=== PATIENT | female | born 1995 | race Caucasian/White ===

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

== ENCOUNTER 2018-12-08 18:31 | Emergency (ER) | payer MEDICAID | END 2018-12-08 23:37 | disposition home or self-care (01) | LOC: ER 23:37 ==

== ENCOUNTER → 2019-02-02 | Outpatient (CLI) | payer MEDICAID ==
[~2019-02-02] MED LIST: CATHETER FLUSH 10 ML SYR IV PRN; HOLD METFORMIN - RECEIVED CONTRAST 20 ML VIAL IV SCH; HYOS0.1283 SL; IOHEXOL 350 MG/ML 100 ML (OMNIPAQUE 350) VIAL IV ONE; NAPR-915; NS 100 ML (IVPB) BAG IV ONE; ONDA4TAB11 PO; ONDA8TAB13 PO; PRD20T
--- NOTE | 2019-02-02 10:29 | Diagnostic Imaging Report ---
PROCEDURE: CT abdomen and pelvis with contrast. TECHNIQUE: Multiple contiguous axial images were obtained through the abdomen and pelvis after administration of intravenous contrast. Auto Exposure Controls were utilized during the CT exam to meet ALARA standards for radiation dose reduction. INDICATION: Diarrhea and abdominal pain for one month. COMPARISON: Correlation is made with prior CT from 12/08/2018. FINDINGS: The lung bases are clear. There are postsurgical changes of gastric bypass surgery. Liver is unremarkable. Gallbladder is surgically absent. No biliary duct dilatation is seen. The pancreas and spleen are unremarkable. No adrenal mass is detected. Kidneys are without evidence of hydronephrosis. Aorta is non-aneurysmal. The small and large bowel loops are normal in caliber. There is no obstruction. No free fluid or fluid collection is seen. The uterus contains an IUD. Partially filled urinary bladder is unremarkable. Occasional mildly prominent lymph nodes in the right lower quadrant are noted which can be seen with mesenteric adenitis. No definite bowel wall thickening is seen. Ovaries are unremarkable. IMPRESSION: Overall essentially unremarkable CT of the abdomen and pelvis with the exception of mildly prominent lymph nodes in the right lower quadrant which can be seen with mesenteric adenitis. No other significant abnormality is detected. Dictated by: Dictated on workstation # [id number]
== END ==
LOC: RAD 09:30
PROVIDERS: ATTEND Physician Assistant
DX: R19.7 Diarrhea, unspecified (principal); R25.2 Cramp and spasm; R10.9 Unspecified abdominal pain
CPT/HCPCS: 74177

== ENCOUNTER 2019-03-06 08:10 | Emergency (ER) | payer MEDICAID ==
[~2019-03-06] VITALS: Ht 162.5 cm; Wt 112.8 kg
[~2019-03-06 08:10] MED LIST changes: -CATHETER FLUSH 10 ML SYR IV PRN; -HOLD METFORMIN - RECEIVED CONTRAST 20 ML VIAL IV SCH; -IOHEXOL 350 MG/ML 100 ML (OMNIPAQUE 350) VIAL IV ONE; -NAPR-915; -NS 100 ML (IVPB) BAG IV ONE; -ONDA4TAB11 PO; -PRD20T
[2019-03-06] MEDS ORDERED: PRD20T (09:14)
[2019-03-06] MEDS ORDERED: NAPR-915 (09:14)
[2019-03-06] MEDS ORDERED: NS IV 1000 ML 1,000 ML IV ONE (10:14)
[2019-03-06] MEDS ORDERED: PROMETHAZINE INJ 25 MG/ML (PHENERGAN) AMP IVP ONE (10:15)
[2019-03-06] MEDS ORDERED: KETOROLAC 30 MG/ML VIAL IVP ONE (10:15)
[2019-03-06 11:19] LABS: BASOPHILS % (AUTO) 0 % (0-10); EOSINOPHILS % (AUTO) 0 % (0-10); HEMATOCRIT 39 % (35-52); HEMOGLOBIN 12.7 G/DL (11.5-16.0); LYMPHOCYTES # (AUTO) 0.8 X 10^3 (1.0-4.0); LYMPHOCYTES % (AUTO) 16 % (12-44); MEAN CORPUSCULAR HEMOGLOBIN 28 PG (25-34); MEAN CORPUSCULAR HGB CONC 32 G/DL (32-36); MEAN CORPUSCULAR VOLUME 85 FL (80-99); MEAN PLATELET VOLUME 12.1 FL (7.4-10.4); MONOCYTES # (AUTO) 0.2 X 10^3 (0.0-1.0); MONOCYTES % (AUTO) 3 % (0-12); NEUTROPHILS # (AUTO) 4.2 X 10^3 (1.8-7.8); NEUTROPHILS % (AUTO) 81 % (42-75); PLATELET COUNT 209 10^3/uL (130-400); RED CELL DISTRIBUTION WIDTH 13.9 % (10.0-14.5); WHITE BLOOD COUNT 5.1 10^3/uL (4.3-11.0)
[2019-03-06 11:36] LABS: ALANINE AMINOTRANSFERASE 11 U/L (0-55); ALBUMIN 4.2 GM/DL (3.2-4.5); ALKALINE PHOSPHATASE 71 U/L (40-136); BILIRUBIN,TOTAL 0.5 MG/DL (0.1-1.0); BUN/CREATININE RATIO 11; CALCIUM 9.4 MG/DL (8.5-10.1); CARBON DIOXIDE 24 MMOL/L (21-32); CHLORIDE 108 MMOL/L (98-107); CREATININE SERUM 0.64 MG/DL (0.60-1.30); GFR ESTIMATED > 60; GLUCOSE 91 MG/DL (70-105); POTASSIUM 4.2 MMOL/L (3.6-5.0); SODIUM 140 MMOL/L (135-145); TOTAL PROTEIN 7.2 GM/DL (6.4-8.2)
[2019-03-06 11:49] LABS: ERYTHROCYTE SEDIMENTATION RATE 7 MM/HR (0-20)
[2019-03-06] MEDS ORDERED: ONDA4TAB11 PO (11:51)
--- NOTE | 2019-03-06 11:52 | ED Headache ---
General Chief Complaint: Head/Cervical Problems Stated Complaint: HEADACHE Nursing Triage Note: AMB TO ROOM WITH FEMALE PATIENT REPORTS WAS IN CLASS YESTERDAY AROUND 11OOA WHEN HER L EYE STARTED TWITCHING AND ONSET OF HEADACHE WENT TO URGENT CARE TOLD HER TO TAKE ALEVE AND WAS GIVEN RX FOR PREDISONE. DID NOT TAKE TYLENOL WITH WAS TOLD AT URGENT CARE NOT TO. TOOK ONE DOSE OF ALEVE AND PREDISON IS NOT ANY BETTER Nursing Sepsis Screen: No Definite Risk Source: patient Exam Limitations: no limitations History of Present Illness Date Seen by Provider: Mar 06, 2019 Time Seen by Provider: 10:05 Initial Comments This 23-year-old young lady presents to the emergency room with complaints of twitching in the right eye and headache that started yesterday when she was in class. She presented to urgent care and was advised to take Aleve and was prescribed prednisone. These medications did not adequately improve her pain. She denies history of severe headaches or migraines. She reports having some associated nausea and dizziness. She has no focal neurologic deficits she did report some subtle blurriness. Allergies and Home Medications Allergies Coded Allergies: Penicillins (Verified Allergy, Unknown, 12/08/18) pt states she is not sure if she has ever had a reaction, but states her mom is allergic to penicillin so she was told to list it as an allergy Home Medications Hyoscyamine Sulfate 0.125 Mg Tab.subl, 0.125 MG SL Q4H PRN for SPASMS Prescribed by: NIKHIL LANGLEY on 12/08/182256 Ondansetron 8 Mg Tab.rapdis, 8 MG PO Q6H PRN for NAUSEA/VOMITING Prescribed by: NIHKIL LANGLEY on 12/08/182256 Ondansetron 4 Mg Tab.rapdis, 4 MG PO Q4H PRN for NAUSEA/VOMITING Prescribed by: JOSE PERLA on 03/06/19 1151 Patient Home Medication List Home Medication List Reviewed: Yes Review of Systems Review of Systems Constitutional: no symptoms reported Eyes: No Symptoms Reported Ears, Nose, Mouth, Throat: no symptoms reported Respiratory: no symptoms reported Cardiovascular: no symptoms reported Gastrointestinal: see HPI Genitourinary: no symptoms reported : No Musculoskeletal: no symptoms reported Skin: no symptoms reported Psychiatric/Neurological: See HPI Past Nevtyvs-Spyzzt-Wkvrjz Hx Past Med/Social Hx: Reviewed Nursing Past Med/Soc Hx Patient Social History Alcohol Use: Denies Use Recreational Drug Use: No Smoking Status: Never a Smoker 2nd Hand Smoke Exposure: No Recent Foreign Travel: No Contact w/Someone Who Travel: No Recent Infectious Disease Expo: No Past Medical History Surgeries: Yes (gastric sleeve) Section, Gallbladder Respiratory: No Cardiac: No Neurological: No Reproductive Disorders: No 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 oz. 111.696474go; 42.00 BMI Method:Stated General Appearance: WD/WN, moderate distress HEENT: PERRL/EOMI, normal ENT inspection, TMs normal, pharynx normal Neck: normal inspection Cardiovascular: regular rate, rhythm, no edema, no murmur Respiratory: lungs clear, normal breath sounds, no respiratory distress, no accessory muscle use Gastrointestinal: normal bowel sounds, non tender, soft Extremities: normal inspection, no pedal edema Psychiatric: alert, oriented x 3 Crainal Nerves: normal hearing, normal speech, PERRL Coordination/Gait: normal gait Motor/Sensory: no motor deficit, no sensory deficit Skin: normal color, warm/dry Progress/Results/Core Measures Results/Orders Lab Results Laboratory Tests Test 03/06/19 10:40 Range/Units White Blood Count 5.1 4.3-11.0 10^3/uL Red Blood Count 4.60 4.35-5.85 10^6/uL Hemoglobin 12.7 11.5-16.0 G/DL Hematocrit 39 35-52 % Mean Corpuscular Volume 85 80-99 FL Mean Corpuscular Hemoglobin 28 25-34 PG Mean Corpuscular Hemoglobin Concent 32 32-36 G/DL Red Cell Distribution Width 13.9 10.0-14.5 % Platelet Count 209 130-400 10^3/uL Mean Platelet Volume 12.1 H 7.4-10.4 FL Neutrophils (%) (Auto) 81 H 42-75 % Lymphocytes (%) (Auto) 16 12-44 % Monocytes (%) (Auto) 3 0-12 % Eosinophils (%) (Auto) 0 0-10 % Basophils (%) (Auto) 0 0-10 % Neutrophils # (Auto) 4.2 1.8-7.8 X 10^3 Lymphocytes # (Auto) 0.8 L 1.0-4.0 X 10^3 Monocytes # (Auto) 0.2 0.0-1.0 X 10^3 Eosinophils # (Auto) 0.0 0.0-0.3 10^3/uL Basophils # (Auto) 0.0 0.0-0.1 10^3/uL Erythrocyte Sedimentation Rate 7 0-20 MM/HR Sodium Level 140 135-145 MMOL/L Potassium Level 4.2 3.6-5.0 MMOL/L Chloride Level 108 H 98-107 MMOL/L Carbon Dioxide Level 24 21-32 MMOL/L Anion Gap 8 5-14 MMOL/L Blood Urea Nitrogen 7 7-18 MG/DL Creatinine 0.64 0.60-1.30 MG/DL Estimat Glomerular Filtration Rate > 60 BUN/Creatinine Ratio 11 Glucose Level 91 70-105 MG/DL Calcium Level 9.4 8.5-10.1 MG/DL Corrected Calcium 9.2 8.5-10.1 MG/DL Total Bilirubin 0.5 0.1-1.0 MG/DL Aspartate Amino Transf (AST/SGOT) 14 5-34 U/L Alanine Aminotransferase (ALT/SGPT) 11 0-55 U/L Alkaline Phosphatase 71 40-136 U/L Total Protein 7.2 6.4-8.2 GM/DL Albumin 4.2 3.2-4.5 GM/DL Serum Test, Qualitative NEGATIVE NEGATIVE My Orders Orders - JOSE CHRISTIAN MD Cbc With Automated Diff (03/06/19 10:14) Comprehensive Metabolic Panel (03/06/19 10:14) Hcg,Qualitative Serum (03/06/19 10:14) Erythrocyte Sedimentation Rate (03/06/19 10:14) Ed Iv/Invasive Line Start (03/06/19 10:14) Ns Iv 1000 Ml (Sodium Chloride 0.9%) (03/06/19 10:14) Ketorolac Injection (Toradol Injection) (03/06/19 10:15) Promethazine Injection (Phenergan Injec (03/06/19 10:15) Medications Given in ED Vital Signs/I&O 03/06/19 03/06/19 08:30 12:14 Temp 36.6 Pulse 85 78 Resp 18 18 B/P (MAP) 154/84 (107) 132/66 Pulse Ox 97 98 O2 Delivery Room Air Blood Pressure Mean: 107 POS Progress Progress Note : Progress Note Patient was treated with Toradol, Phenergan, and IV fluids with good improvement. Departure Impression Primary Impression: Migraine headache with aura Qualified Codes: G43.109 - Migraine with aura, not intractable, without status migrainosus Disposition: 01 HOME, SELF-CARE Condition: Improved Departure-Patient Inst. Referrals: [facility][1]/[facility] (PCP) Primary Care Physician LANA JASMINE (Family) Primary Care Physician Patient Instructions: Migraine Headache (DC) Add. Discharge Instructions: Return home and rest in a quiet, calm, dark environment for the remainder of the day. Stay well-hydrated. For rebound headaches you may take either naproxen 500 mg (Aleve) twice a daily or ibuprofen up to 600 mg every 6 hours as needed. You may add Tylenol (acetaminophen) up to 1000 mg every 6 hours as needed for additional pain relief. Use Zofran (ondansetron) as prescribed for nausea or vomiting. Return to care if you have rebound headaches that do not respond to these treatments. Follow-up with your primary care provider as soon as possible. All discharge instructions reviewed with patient and/or family. Voiced understanding. Scripts Ondansetron (Ondansetron Odt) 4 Mg Tab.rapdis 4 MG PO Q4H PRN for NAUSEA/VOMITING, #10 TAB Prov: JOSE CHRISTIAN MD 03/06/19 Copy Copies To 1: VALENTIN TSE JOSHUA T MD Mar 06, 2019 11:52 POS
[2019-03-06 12:14] VITALS: BP 132/66
== END 2019-03-06 12:13 | disposition home or self-care (01) ==
LOC: EDUNIT# 08:10 → ER 08:11
DX: G43.109 Migraine with aura, not intractable, without status migrainosus (principal); Z88.0 Allergy status to penicillin
CPT/HCPCS: 36415; 80053; 84703; 85025; 85652; 96361; 96374; 96375

== ENCOUNTER 2019-05-07 11:57 | Emergency (ER) | payer MEDICAID ==
[~2019-05-07] VITALS: Ht 162.5 cm; Wt 112.7 kg
[~2019-05-07 11:57] MED LIST changes: +NAPR-915; +ONDA4TAB11 PO; +PRD20T
[2019-05-07 12:27] LABS: BILIRUBIN,URINE NEGATIVE (NEGATIVE); CLARITY,URINE CLEAR; COLOR,URINE YELLOW; GLUCOSE, URINE (UA) NEGATIVE (NEGATIVE); KETONES,URINE NEGATIVE (NEGATIVE); LEUKOCYTE ESTERASE ,URINE TRACE (NEGATIVE); NITRITE,URINE NEGATIVE (NEGATIVE); PROTEIN,URINE NEGATIVE (NEGATIVE)
[2019-05-07 12:34] LABS: BACTERIA,URINE TRACE /HPF; WBC,URINE RARE /HPF
[2019-05-07] MEDS ORDERED: NS IV 1000 ML 1,000 ML IV SCH (14:41)
[2019-05-07] MEDS ORDERED: ONDANSETRON 4 MG/2 ML (SDV) Z0FRAN IVP ONE ×2 (14:45→18:15)
[2019-05-07 14:47] LABS: BASOPHILS % (AUTO) 0 % (0-10); EOSINOPHILS # (AUTO) 0.1 10^3/uL (0.0-0.3); EOSINOPHILS % (AUTO) 1 % (0-10); HEMATOCRIT 37 % (35-52); HEMOGLOBIN 12.1 G/DL (11.5-16.0); LYMPHOCYTES # (AUTO) 1.3 X 10^3 (1.0-4.0); LYMPHOCYTES % (AUTO) 15 % (12-44); MEAN CORPUSCULAR HEMOGLOBIN 28 PG (25-34); MEAN CORPUSCULAR HGB CONC 33 G/DL (32-36); MEAN CORPUSCULAR VOLUME 85 FL (80-99); MEAN PLATELET VOLUME 12.1 FL (7.4-10.4); MONOCYTES # (AUTO) 0.6 X 10^3 (0.0-1.0); MONOCYTES % (AUTO) 7 % (0-12); NEUTROPHILS # (AUTO) 6.6 X 10^3 (1.8-7.8); NEUTROPHILS % (AUTO) 77 % (42-75); PLATELET COUNT 208 10^3/uL (130-400); RED CELL DISTRIBUTION WIDTH 14.3 % (10.0-14.5); WHITE BLOOD COUNT 8.7 10^3/uL (4.3-11.0)
[2019-05-07 15:09] LABS: ALANINE AMINOTRANSFERASE 10 U/L (0-55); ALKALINE PHOSPHATASE 59 U/L (40-136); BILIRUBIN,TOTAL 0.6 MG/DL (0.1-1.0); BUN/CREATININE RATIO 10; CALCIUM 8.7 MG/DL (8.5-10.1); CARBON DIOXIDE 23 MMOL/L (21-32); CHLORIDE 110 MMOL/L (98-107); CREATININE SERUM 0.67 MG/DL (0.60-1.30); GFR ESTIMATED > 60; GLUCOSE 82 MG/DL (70-105); SODIUM 139 MMOL/L (135-145); TOTAL PROTEIN 6.7 GM/DL (6.4-8.2)
[2019-05-07] MEDS ORDERED: KETOROLAC 30 MG/ML VIAL IVP ONE (15:45)
--- NOTE | 2019-05-07 16:45 | Diagnostic Imaging Report ---
PROCEDURE: US NONOB transvaginal. TECHNIQUE: Multiple real-time grayscale images were obtained of the pelvis in various projections endovaginally. INDICATION: Pelvic pain. FINDINGS: Uterus measures 9.2 x 5 x 5.7 cm. Endometrial stripe measures 6 mm. IUD is present in the uterine cavity in good position. The right ovary is not visualized. There is considerable bowel gas in the right adnexa. The left ovary appears normal measuring 4.5 x 2.2 x 2.7 cm. There is normal blood flow to the left ovary. There is a small amount of free fluid noted in the cul-de-sac. IMPRESSION: 1. Trace of free fluid in the cul-de-sac. Right ovary not identified. No abnormalities demonstrated. 2. IUD in good position. Dictated by: Dictated on workstation # [id number]
[2019-05-07] MEDS ORDERED: fentaNYL INJECTION 100 MCG/2 ML AMP IVP ONE (18:15)
[2019-05-07] MEDS ORDERED: NS 100 ML (IVPB) BAG IV ONE (18:30)
[2019-05-07] MEDS ORDERED: IOHEXOL 350 MG/ML 100 ML (OMNIPAQUE 350) VIAL IV ONE (18:30)
[2019-05-07] MEDS ORDERED: HOLD METFORMIN - RECEIVED CONTRAST 20 ML VIAL IV SCH (18:30)
[2019-05-07] MEDS ORDERED: CATHETER FLUSH 10 ML SYR IV PRN (18:30)
--- NOTE | 2019-05-07 18:32 | ED Abdominal Pain ---
General Chief Complaint: - Urinary Stated Complaint: LOWER ABD PAIN;DIZZINESS;NAUSEA Nursing Triage Note: PT AMB TO TRIAGE WITH COMPLAINT OF RIGHT SIDE PAIN THAT RADIATES TO RIGHT BACK. STATES HER BACK HURTS WHENEVER SHE PEES. STATES SYMPTOMS HAVE BEEN GOING ON FOR A WEEK. STATES TODAY SHE STARTED HAVING DIZZINESS, CHILLS, AND NAUSEA. Sepsis Screen: No Definite Risk Source of Information: Patient Exam Limitations: No Limitations (JOSE CHRISTIAN MD) History of Present Illness Date Seen by Provider: May 07, 2019 Time Seen by Provider: 12:11 Initial Comments This 23-year-old young lady presents to the emergency room as directed from the [facility]. She presented there today with complaints of right lower quadrant pain for the past 2 weeks. She has had associated nausea without vomiting. She denies constipation or diarrhea. She complains of pelvic pain with urination but no superficial dysuria. She denies any history of ovarian cysts. Her last menstrual period was about one month ago. She has an IUD in [facility]. Pain seems to be fairly intermittent. She denies any pain with walking. She has had some vaginal discharge. She had a runny bowel movement this morning which is typical of her bowel movements. She has a small bump on her abdominal wall that looks like an ingrown hair. She has had prior cholecystectomy, section, and gastric sleeve. At [facility] she was seen by Linnette Herrera who performed a pelvic exam. Screening for Trichomonas and bacterial vaginosis was negative. She did have cervical motion tenderness but no inflammatory changes or purulent discharge visible on exam. No medications were administered. She was referred to the emergency room for further workup. (JOSE CHRISTIAN MD) Allergies and Home Medications Allergies Coded Allergies: Penicillins (Verified Allergy, Unknown, 12/08/18) pt states she is not sure if she has ever had a reaction, but states her mom is allergic to penicillin so she was told to list it as an allergy Home Medications Hyoscyamine Sulfate 0.125 Mg Tab.subl, 0.125 MG SL Q4H PRN for SPASMS Prescribed by: NIKHIL LANGLEY on 12/08/182256 Ondansetron 8 Mg Tab.rapdis, 8 MG PO Q6H PRN for NAUSEA/VOMITING Prescribed by: NIKHIL LANGLEY on 12/08/182256 Ondansetron 4 Mg Tab.rapdis, 4 MG PO Q4H PRN for NAUSEA/VOMITING Prescribed by: JOSE PERLA on 03/06/19 1151 Patient Home Medication List Home Medication List Reviewed: Yes (JOSE CHRISTIAN MD) Review of Systems Review of Systems Constitutional: no symptoms reported EENTM: No Symptoms Reported Respiratory: No Symptoms Reported Cardiovascular: No Symptoms Reported Gastrointestinal: See HPI Genitourinary: See HPI Musculoskeletal: no symptoms reported Skin: no symptoms reported Psychiatric/Neurological: No Symptoms Reported Endocrine: No Symptoms Reported Hematologic/Lymphatic: No Symptoms Reported (JOSE CHRISTIAN MD) Past Vuhemai-Vpkqiq-Oqzpvz Hx Past Med/Social Hx: Reviewed Nursing Past Med/Soc Hx (JOSE CHRISTIAN MD) Patient Social History Alcohol Use: Denies Use Recreational Drug Use: No Smoking Status: Never a Smoker 2nd Hand Smoke Exposure: No Recent Foreign Travel: No Contact w/Someone Who Travel: No Recent Infectious Disease Expo: No (JOSE CHRISTIAN MD) Immunizations Up To Date Tetanus Booster (TDap): Unknown PED Vaccines UTD: Yes (JOSE CHRISTIAN MD) Past Medical History Surgeries: Yes (gastric sleeve) Section, Gallbladder Respiratory: No Cardiac: No Neurological: No : No Reproductive Disorders: No 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 oz. 111.424959dh; 42.00 BMI Method:Stated General Appearance: WD/WN, no apparent distress HEENT: PERRL/EOMI, normal ENT inspection Neck: normal inspection Respiratory: lungs clear, normal breath sounds, no respiratory distress, no a ccessory muscle use Cardiovascular: regular rate, rhythm, no edema, no murmur Gastrointestinal: normal bowel sounds, soft, tenderness (generalized over the pelvis) Extremities: normal inspection, no pedal edema Neurologic/Psychiatric: e mail system administrator II-XII nml as tested, no motor/sensory deficits, alert, normal mood/affect, oriented x 3 Skin: normal color, warm/dry (JOSE CHRISTIAN MD) Progress/Results/Core Measures Results/Orders Lab Results Laboratory Tests Test 05/07/19 12:17 05/07/19 14:33 Range/Units Urine Color YELLOW Urine Clarity CLEAR Urine pH 7.0 5-9 Urine Specific [place] <=1.005 1.016-1.022 Urine Protein NEGATIVE NEGATIVE Urine Glucose (UA) NEGATIVE NEGATIVE Urine Ketones NEGATIVE NEGATIVE Urine Nitrite NEGATIVE NEGATIVE Urine Bilirubin NEGATIVE NEGATIVE Urine Urobilinogen 0.2 < = 1.0 MG/DL Urine Leukocyte Esterase TRACE NEGATIVE Urine RBC (Auto) NEGATIVE NEGATIVE Urine RBC NONE /HPF Urine WBC RARE /HPF Urine Squamous Epithelial Cells 5-10 /HPF Urine Crystals NONE /LPF Urine Bacteria TRACE /HPF Urine Casts NONE /LPF Urine Mucus NEGATIVE /LPF Urine Culture Indicated NO White Blood Count 8.7 4.3-11.0 10^3/uL Red Blood Count 4.37 4.35-5.85 10^6/uL Hemoglobin 12.1 11.5-16.0 G/DL Hematocrit 37 35-52 % Mean Corpuscular Volume 85 80-99 FL Mean Corpuscular Hemoglobin 28 25-34 PG Mean Corpuscular Hemoglobin Concent 33 32-36 G/DL Red Cell Distribution Width 14.3 10.0-14.5 % Platelet Count 208 130-400 10^3/uL Mean Platelet Volume 12.1 H 7.4-10.4 FL Neutrophils (%) (Auto) 77 H 42-75 % Lymphocytes (%) (Auto) 15 12-44 % Monocytes (%) (Auto) 7 0-12 % Eosinophils (%) (Auto) 1 0-10 % Basophils (%) (Auto) 0 0-10 % Neutrophils # (Auto) 6.6 1.8-7.8 X 10^3 Lymphocytes # (Auto) 1.3 1.0-4.0 X 10^3 Monocytes # (Auto) 0.6 0.0-1.0 X 10^3 Eosinophils # (Auto) 0.1 0.0-0.3 10^3/uL Basophils # (Auto) 0.0 0.0-0.1 10^3/uL Sodium Level 139 135-145 MMOL/L Potassium Level 4.0 3.6-5.0 MMOL/L Chloride Level 110 H 98-107 MMOL/L Carbon Dioxide Level 23 21-32 MMOL/L Anion Gap 6 5-14 MMOL/L Blood Urea Nitrogen 7 7-18 MG/DL Creatinine 0.67 0.60-1.30 MG/DL Estimat Glomerular Filtration Rate > 60 BUN/Creatinine Ratio 10 Glucose Level 82 70-105 MG/DL Calcium Level 8.7 8.5-10.1 MG/DL Corrected Calcium 8.7 8.5-10.1 MG/DL Total Bilirubin 0.6 0.1-1.0 MG/DL Aspartate Amino Transf (AST/SGOT) 13 5-34 U/L Alanine Aminotransferase (ALT/SGPT) 10 0-55 U/L Alkaline Phosphatase 59 40-136 U/L C-Reactive Protein High Sensitivity 0.03 0.00-0.50 MG/DL Total Protein 6.7 6.4-8.2 GM/DL Albumin 4.0 3.2-4.5 GM/DL Serum Test, Qualitative NEGATIVE NEGATIVE (EMEKA DINH) Medications Given in ED Current Medications Medications Dose Ordered Sig/Catrachita Route Start Time Stop Time Status Last Admin Dose Admin Fentanyl Citrate 50 mcg ONCE ONCE IVP 05/07/19 18:15 05/07/19 18:16 DC 05/07/19 18:22 50 MCG Iohexol 100 ml ONCE ONCE IV 05/07/19 18:30 05/07/19 18:31 DC 05/07/19 18:33 99 ML Ketorolac Tromethamine 15 mg ONCE ONCE IVP 05/07/19 15:45 05/07/19 15:46 DC 05/07/19 15:40 15 MG Ondansetron HCl 4 mg ONCE ONCE IVP 05/07/19 14:45 05/07/19 14:46 DC 05/07/19 14:57 4 MG Ondansetron HCl 4 mg ONCE ONCE IVP 1/20/20 18:15 05/07/19 18:16 DC 05/07/19 18:22 4 MG Sodium Chloride 10 ml NEEDED PRN IV 05/07/19 18:30 05/07/19 18:33 10 ML Sodium Chloride 100 ml ONCE ONCE IV 05/07/19 18:30 05/07/19 18:31 DC 05/07/19 18:33 80 ML (EMEKA DINH) Vital Signs/I&O 05/07/19 12:14 Temp 36.9 Pulse 89 Resp 20 B/P (MAP) 98/65 (76) Pulse Ox 99 O2 Delivery Room Air (EMEKA DINH) Blood Pressure Mean: 76 Progress Progress Note : Time: 18:31 Progress Note Lab workup has been unremarkable. Patient was treated with Toradol and Zofran. Pelvic ultrasound was performed and revealed a small amount of free fluid but no other abnormalities. Patient states pain is still 8 out of 10 after being treated. She is still nauseated. Fentanyl and additional Zofran is being given. I discussed options for further workup which might include CT scan. After discussion of risks and benefits, patient requests to proceed with CT scan. CT was ordered and care of this patient is being transitioned to Dr. Dinh. (JOSE CHRISTIAN MD) Progress Note : Time: 18:53 Progress Note Assume care of the patient at 6:30. I agree with the above documented history and physical exam. CT imaging would support ovarian cyst. This is consistent with the rest the lab work which is also benign. Her pain has significantly improved on repeat evaluation. We will trial rotating NSAIDs and acetaminophen. She says she does have nausea occasionally so we'll send her a prescription to [facility] for Zofran. (EMEKA DINH) Diagnostic Imaging Diagonstic Imaging: Ultrasound Plain Films/CT/US/NM/MRI: pelvis Comments Pelvic ultrasound discussed with the lawn care technician and report reviewed. See report below: NAME: TRAVON CLAIRE [facility] REC#: [id number] PT STATUS: REG ER : 1995 PHYSICIAN: JOSE CHRISTIAN MD ADMIT DATE: 05/07/19/ER Signed Date of Exam:05/07/19 US NON OB TRANSVAGINAL [id number] PROCEDURE: US NONOB transvaginal. TECHNIQUE: Multiple real-time grayscale images were obtained of the pelvis in various projections endovaginally. INDICATION: Pelvic pain. FINDINGS: Uterus measures 9.2 x 5 x 5.7 cm. Endometrial stripe measures 6 mm. IUD is present in the uterine cavity in good position. The right ovary is not visualized. There is considerable bowel gas in the right adnexa. The left ovary appears normal measuring 4.5 x 2.2 x 2.7 cm. There is normal blood flow to the left ovary. There is a small amount of free fluid noted in the cul-de-sac. IMPRESSION: 1. Trace of free fluid in the cul-de-sac. Right ovary not identified. No abnormalities demonstrated. 2. IUD in good position. Dictated by: Dictated on workstation # [id number] Dict: 05/07/19 1641 Trans: 05/07/19 1810 [facility] [id number] Interpreted by: MARISA YANG MD Electronically signed by: MARISA YANG MD 05/07/191809 (JOSE CHRISTIAN MD) Departure Impression Primary Impression: Lizzeth Disposition: HOME, SELF-CARE Condition: Stable Departure-Patient Inst. Decision time for Depature: 18:59 (EMEKA DINH) Referrals: [facility] [place] (PCP) Primary Care Physician LANA JASMINE (Family) Primary Care Physician Patient Instructions: Painful Ovulation (DC) Add. Discharge Instructions: Drink plenty of fluids. Use heating pads across the abdomen for help with the pain. Tylenol 1000 mg every 8 hours as needed for pain. Alternate this with ibuprofen 800 mg every 8 hours as needed for pain. If the ibuprofen is not lasting long enough then you may use naproxen 2 tablets twice a day instead. Zofran 1 tablet under the tongue every 6 hours as needed for nausea or vomiting. Expect improvement in about 3-4 days. Follow-up with your primary care doctor for management of your symptoms as necessary. All discharge instructions reviewed with patient and/or family. Voiced understa nding. Scripts Ondansetron (Ondansetron Odt) 4 Mg Tab.rapdis 4 MG PO Q6H PRN for NAUSEA/VOMITING, #8 TAB 0 Refills Prov: EMEKA DINH 05/07/19 JOSE CHRISTIAN MD May 07, 2019 18:32 EMEKA DINH May 07, 2019 18:59
--- NOTE | 2019-05-07 18:46 | Diagnostic Imaging Report ---
CT ABDOMEN/PELVIS W TECHNIQUE: Multiple contiguous axial images were obtained through the abdomen and pelvis after administration of intravenous contrast. All CT scans use one or more of the following dose optimizing techniques: Automated exposure control, MA and/or KvP adjustment based on a patient size and exam type, or iterative reconstruction. INDICATION: Right lower quadrant pain and back pain for one week. Painful urination. COMPARISON: 02/02/2019. FINDINGS: Lower chest: The lung bases are clear. No pericardial or pleural effusion. Peritoneum: No free intraperitoneal air or fluid. Liver and biliary system: The liver is normal. Cholecystectomy. No pathologic biliary duct dilatation. Spleen and Pancreas: Spleen is normal. The pancreas enhances normally without mass lesion or peripancreatic inflammatory changes. Adrenals: Normal. tract: The kidneys enhance normally without suspicious mass or obstruction. Urinary bladder is distended without wall thickening. No urinary tract calculi. An IUD is appropriately positioned within the uterus. Physiologic left ovarian corpus luteum measuring 1.9 x 1.5 cm. GI tract: Status post gastric sleeve procedure. The stomach is decompressed. No bowel obstruction. No pericolonic inflammatory changes. Appendix is not seen with certainty, although there are no features that would suggest acute appendicitis. Vasculature and Lymph nodes: Normal caliber aorta. No abdominal or pelvic lymphadenopathy. Musculoskeletal: No concerning osseous lesion. IMPRESSION: 1. No acute obstructive or inflammatory process in the abdomen and pelvis. 2. No urinary tract calculi. Dictated by: Dictated on workstation # [id number]
[2019-05-07] MEDS ORDERED: ONDA4TAB11 PO (19:01)
[2019-05-07 19:08] VITALS: BP 137/75
== END 2019-05-07 19:09 | disposition home or self-care (01) ==
LOC: EDUNIT# 11:57 → ER 11:58
DX: N94.0 Mittelschmerz (principal); Z90.49 Acquired absence of other specified parts of digestive tract; Z88.0 Allergy status to penicillin
CPT/HCPCS: 36415; 74177; 76830; 80053; 81000; 84703; 85025; 86141; 96361; 96374; 96375; 96376

== ENCOUNTER 2019-07-02 21:42 | Emergency (ER) | payer MEDICAID ==
[~2019-07-02] VITALS: Ht 162 cm; Wt 112.7 kg
[2019-07-02] MEDS ORDERED: LIDOCAINE 2% VISCOUS 15 ML UDC ONE (21:50)
[2019-07-02] MEDS ORDERED: ANTACID SUSP 30 ML UDC (MYLANTA) ONE (21:50)
[2019-07-02] MEDS ORDERED: ALPR0.25 PO (22:00)
[2019-07-02] MEDS ORDERED: ALPRAZolam 0.25 MG (XANAX) TAB PO ONE (22:00)
[2019-07-02] MEDS ORDERED: LIDOCAINE 2% VISCOUS 15 ML UDC PO ONE (22:00)
--- NOTE | 2019-07-02 22:00 | ED EENT ---
History of Present Illness General Chief Complaint: Oral/Throat Problems Stated Complaint: THYROID SWOLLEN Nursing Triage Note: throat pain, patient states started , went to [facility] with anxiety and tonsils stones, today seen [facility]. Source: patient Exam Limitations: no limitations History of Present Illness Date Seen by Provider: Jul 02, 2019 Time Seen by Provider: 21:57 Initial Comments To ER with reports of throat pain that began on 06/28/19. She was seen at [facility], diagnosed with anxiety and tonsil stones. She then followed up with primary care today who told her it might be her thyroid and ordered a thyroid ultrasound. Tonight she feels very anxious as though she can't swallow or breathe though she is doing both of these just fine. No fevers or chills. Timing/Duration: abrupt Severity: moderate Location: throat Associated Symptoms: denies symptoms Allergies and Home Medications Allergies Coded Allergies: Penicillins (Verified Allergy, Unknown, 12/08/18) pt states she is not sure if she has ever had a reaction, but states her mom is allergic to penicillin so she was told to list it as an allergy Home Medications Alprazolam 0.25 Mg Tablet, 0.25 MG PO BID PRN for ANXIETY Prescribed by: TEMITOPE DUENAS on 07/02/192199 Hyoscyamine Sulfate 0.125 Mg Tab.subl, 0.125 MG SL Q4H PRN for SPASMS Prescribed by: NIKHIL LANGLEY on 12/08/182256 Ondansetron 8 Mg Tab.rapdis, 8 MG PO Q6H PRN for NAUSEA/VOMITING Prescribed by: NIKHIL LANGLEY on 12/08/182256 Ondansetron 4 Mg Tab.rapdis, 4 MG PO Q4H PRN for NAUSEA/VOMITING Prescribed by: JOSE PERLA on 03/06/19 1151 Ondansetron 4 Mg Tab.rapdis, 4 MG PO Q6H PRN for NAUSEA/VOMITING Prescribed by: EMEKA MCCLURE on 05/07/19 1901 Patient Home Medication List Home Medication List Reviewed: Yes Review of Systems Review of Systems Constitutional: see HPI Eyes: No Symptoms Reported Ears: No Symptoms Reported Nose: no symptoms reported Mouth: no symptoms reported Throat: see HPI Respiratory: no symptoms reported Cardiovascular: no symptoms reported Musculoskeletal: no symptoms reported Skin: no symptoms reported Past Cfytzvs-Iebpha-Clkamv Hx Patient Social History Alcohol Use: Denies Use Recreational Drug Use: No Smoking Status: Never a Smoker 2nd Hand Smoke Exposure: No Recent Foreign Travel: No Contact w/Someone Who Travel: No Recent Infectious Disease Expo: No Physical Abuse: No Sexual Abuse: No Mistreated: No Fear: No Immunizations Up To Date Tetanus Booster (TDap): Unknown PED Vaccines UTD: Yes Past Medical History Surgeries: Yes (gastric sleeve) Section, Gallbladder Respiratory: No Cardiac: No Neurological: No Reproductive Disorders: No 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 oz. [id number]; 42.00 BMI Method:Stated General Appearance: WD/WN, no apparent distress, other (very anxious appearing, tearful, as well as on secretions without drooling, no stridor) Eyes: bilateral eye normal inspection, bilateral eye PERRL, bilateral eye EOMI Ears: bilateral ear auricle normal, bilateral ear canal normal, bilateral ear TM normal Neck: non-tender, full range of motion, other (normal appearance of the neck) Respiratory: no respiratory distress, no accessory muscle use Gastrointestinal: normal bowel sounds, non tender, soft Neurologic/Psychiatric: no motor/sensory deficits, alert, normal mood/affect Skin: normal color, warm/dry Progress/Results/Core Measures Results/Orders My Orders Orders - TEMITOPE DUENAS APRN Antacid Suspension (Mylanta Suspension (07/02/19 21:50) Lidocaine 2% Viscous 15 Ml (Xylocaine Vi (07/02/19 21:50) Alprazolam Tablet (Xanax Tablet) (07/02/19 22:00) Lidocaine 2% Viscous 15 Ml (Xylocaine Vi (07/02/19 22:00) Medications Given in ED Current Medications Medications Dose Ordered Sig/Catrachita Route Start Time Stop Time Status Last Admin Dose Admin Alprazolam 0.25 mg ONCE ONCE PO 3/16/20 22:00 07/02/19 22:01 DC 07/02/19 22:04 0.25 MG Lidocaine HCl 5 ml ONCE ONCE PO 07/02/19 22:00 07/02/19 22:01 DC 07/02/19 21:59 5 ML Vital Signs/I&O 07/02/19 21:49 Pulse 94 Resp 18 B/P (MAP) 157/105 (122) Pulse Ox 98 O2 Delivery Room Air Blood Pressure Mean: 122 Departure Communication (Admissions) 2675-states that her lower neck/upper chest still feels tight, no stridor, swallowing all secretions, states that she is worried that she will go home and quit breathing and begins crying again. Impression Primary Impression: Anxiety Additional Impression: Neck pain Disposition: HOME, SELF-CARE Condition: Stable Departure-Patient Inst. Decision time for Depature: 21:58 Referrals: [facility] [place] Primary Care Physician LANA JASMINE (Family) Primary Care Physician Patient Instructions: Anxiety, Adult (DC) Add. Discharge Instructions: 1. Keep your appointment for the thyroid ultrasound. All discharge instructions reviewed with patient and/or family. Voiced understanding. Scripts Alprazolam (Xanax) 0.25 Mg Tablet 0.25 MG PO BID PRN for ANXIETY, #10 TAB Prov: TEMITOPE DUENAS APRN 07/02/19 TEMITOPE DUENAS APRN Jul 02, 2019 22:00
[2019-07-02] MEDS ORDERED: RX-LORAZEPAM (ATIVAN) 0.5 MG TAB PPK#4 PO STA (22:43)
[2019-07-02 22:54] VITALS: BP 158/97
--- OUTSIDE RECORDS SUMMARY | 2019-07-03 02:57 | XMS REPORT | Continuity of Care Document ---
Author Organization Unknown Address Unknown Phone Unavailable Allergies Active Description Code Type Severity Reaction Onset Reported/Identified Relationship to Patient Clinical Status Yes Penicillins [id number] Drug Aller gy Unknown N/A 12/08/2018 Medications There is no data. Problems Date Dx Coded Attending Type Code Diagnosis Diagnosed By 11/04/2016 MITCHELL LEE DO Ot O36.80X0 W INCONCLUSIVE VIABILITY 11/04/2016 MITCHELL LEE DO Ot Z3A.0 8 8 WEEKS GESTATION OF 12/08/2018 NIKHIL SAMUELS Ot E86.9 VOLUME DEPLETION, UNSPECIFIED 12/08/2018 NIKHIL SAMUELS Ot R10.12 LEFT UPPER QUADRANT PAIN 12/08/2018 NIKHIL SAMUELS Ot R11.0 NAUSEA 12/08/2018 NIKHIL SAMUELS Ot Z87.59 PERSONAL HISTORY OF COMP OF PREG, CHLDBR 12/08/2018 NIKHIL SAMUELS Ot Z88.0 ALLERGY STATUS TO PENICILLIN 12/09/2018 MITCHELL LEE DO Ot O36.80X0 W INCONCLUSIVE VIABILITY 12/09/2018 MITCHELL LEE DO Ot Z3A.0 8 8 WEEKS GESTATION OF 12/12/2018 NIKHIL SAMUELS Ot E86.9 VOLUME DEPLETION, UNSPECIFIED 12/12/2018 NIKHIL SAMUELS Ot R10.12 LEFT UPPER QUADRANT PAIN 12/12/2018 NIKHIL SAMUELS Ot R11.0 NAUSEA 12/12/2018 NIKHIL SAMUELS Ot Z87.59 PERSONAL HISTORY OF COMP OF PREG, CHLDBR 12/12/2018 NIKHIL SAMUELS Ot Z88.0 ALLERGY STATUS TO PENICILLIN 12/12/2018 NIKHIL SAMUELS Ot E86.9 VOLUME DEPLETION, UNSPECIFIED 12/12/2018 NIKHIL SAMUELS Ot R10.12 LEFT UPPER QUADRANT PAIN 12/12/2018 NIKHIL SAMUELS Ot R11.0 NAUSEA 12/12/2018 KORIN GLORIA NIHKIL Karely Ot Z87.59 PERSONAL HISTORY OF COMP OF PREG, CHLDBR 12/12/2018 KORIN GLORIA NIKHIL Karely Ot Z88.0 ALLERGY STATUS TO PENICILLIN 12/14/2018 KORIN GLORIA NIKHIL Karely Ot E86.9 VOLUME DEPLETION, UNSPECIFIED 12/14/2018 KORIN GLORIA NIKHIL Karely Ot R10.12 LEFT UPPER QUADRANT PAIN 12/14/2018 KORIN GLORIA NIKHIL L Ot R11.0 NAUSEA 12/14/2018 KORIN GLORIA NIKHIL Karely Ot Z87.59 PERSONAL HISTORY OF COMP OF PREG, CHLDBR 12/14/2018 KORIN GLORIA NIKHIL Karely Ot Z88.0 ALLERGY STATUS TO PENICILLIN 02/06/2019 LANA TALAMANTES Ot R10 .9 UNSPECIFIED ABDOMINAL PAIN 02/06/2019 LANA TALAMANTES Ot R19 .7 DIARRHEA, UNSPECIFIED 02/06/2019 LANA TALAMANTES Ot R25 .2 CRAMP AND SPASM 03/06/2019 GINO ANAND, JOSE T Ot G43.109 MIGRAINE WITH AURA, NOT INTRACTABLE, W/O 03/06/2019 GINO ANAND, JOSE T Ot R51 HEADACHE 03/06/2019 GINO ANAND, JOSE T Ot Z88.0 ALLERGY STATUS TO PENICILLIN 04/17/2019 LANA TALAMANTES Ot R10 .9 UNSPECIFIED ABDOMINAL PAIN 04/17/2019 LANA TALAMANTES Ot R19 .7 DIARRHEA, UNSPECIFIED 04/17/2019 LANA TALAMANTES Ot R25 .2 CRAMP AND SPASM 05/07/2019 MITCHELL LEE DO Ot O36.80X0 W INCONCLUSIVE VIABILITY 05/07/2019 MITCHELL LEE DO Ot Z3A.0 8 8 WEEKS GESTATION OF 05/07/2019 LANA TALAMANTES Ot R10 .9 UNSPECIFIED ABDOMINAL PAIN 05/07/2019 LANA TALAMANTES Ot R19 .7 DIARRHEA, UNSPECIFIED 05/07/2019 LANA TALAMANTES Ot R25 .2 CRAMP AND SPASM 05/07/2019 KAMI ANAND, EMEKA Kaufman Ot N94. 0 MITTELSCHMERZ 05/07/2019 EMEKA MCCLURE MD Ot R10. 31 RIGHT LOWER QUADRANT PAIN 05/07/2019 EMEKA MCCLURE MD Ot Z88. 0 ALLERGY STATUS TO PENICILLIN 05/07/2019 EMEKA MCCLRUE MD Ot Z90. 49 ACQUIRED ABSENCE OF OTHER SPECIFIED PART 05/10/2019 EMEKA MCCLURE MD Ot N94. 0 MITTELSCHMERZ 05/10/2019 EMEKA MCCLURE MD Ot R10. 31 RIGHT LOWER QUADRANT PAIN 05/10/2019 EMEKA MCCLURE MD Ot Z88. 0 ALLERGY STATUS TO PENICILLIN 05/10/2019 EMEKA MCCLURE MD Ot Z90. 49 ACQUIRED ABSENCE OF OTHER SPECIFIED PART Procedures There is no data. Results Test Result Range CULTURE, URINE - 10/24/18 16:04 CULTURE, URINE, ROUTINE SEE NOTE NRG CULTURE, VAGINAL YEAST - 10/24/18 16:04 CULTURE, YEAST, W/DIRECT FLUORESCENT VERA SEE NOTE NRG Complete blood count (CBC) with automate d white blood cell (WBC) differential - 12/08/18 21:00 Blood leukocytes automated count (number/volume) 3.0 10*3/uL 4.3-11.0 Blood erythrocytes automated count (number/volume) 4.40 10*6/uL 4.35-5.85 Venous blood hemoglobin measurement (mass/volume) 12.3 g/dL 11.5-16.0 Blood hematocrit (volume fraction) 37 % 35-52 Automated erythrocyte mean corpuscular volume 85 [ foz_us] 80-99 Automated erythrocyte mean corpuscular h emoglobin (mass per erythrocyte) 28 pg 25-34 Automated erythrocyte mean corpuscular h emoglobin concentration measurement (mass/volume) 33 g/dL 32-36 Automated erythrocyte distribution width ratio 14. 0 % 10.0- 14.5 Automated blood platelet count (count/volume) 170 10*3/uL 130-400 Automated blood platelet mean volume measurement 11.7 [foz_us] 7.4-10.4 Automated blood neutrophils/100 leukocytes 57 % 42-75 Automated blood lymphocytes/100 leukocytes 32 % 12-44 Blood monocytes/100 leukocytes 10 % 0-12 Automated blood eosinophils/100 leukocytes 1 % 0-10 Automated blood basophils/100 leukocytes 1 % 0-10 Blood neutrophils automated count (number/volume) 1.7 10*3 1.8-7.8 Blood lymphocytes automated count (number/volume) 1.0 10*3 1.0-4.0 Blood monocytes automated count (number/volume) 0. 3 10*3 0.0-1.0 Automated eosinophil count 0.0 10*3/uL 0 .0-0.3 Automated blood basophil count (count/volume) 0.0 10*3/uL 0.0-0.1 Blood lactic acid measurement (moles/vol ume) - 12/08/18 21:00 Blood lactic acid measurement (moles/volume) 0.67 mmol/L 0.50-2.00 Comprehensive metabolic panel - 12/08/18 21:00 Serum or plasma sodium measurement (moles/volume) 140 mmol/L 135-145 Serum or plasma potassium measurement (moles/volume) 3.6 mmol/L 3.6-5.0 Serum or plasma chloride measurement (moles/volume) 110 mmol/L 98-107 Carbon dioxide 17 mmol/L 21-32 Serum or plasma anion gap determination (moles/volume) 13 mmol/L 5-14 Serum or plasma urea nitrogen measurement (mass/volume ) 7 mg/dL 7-18 Serum or plasma creatinine measurement (mass/volume) 0.63 mg/dL 0.60-1.30 Serum or plasma urea nitrogen/creatinine mass ratio 11 NRG Serum or plasma creatinine measurement w ith calculation of estimated glomerular filtration rate > NRG Serum or plasma glucose measurement (mass/volume) 76 mg/dL 70-105 Serum or plasma calcium measurement (mass/volume) 8.3 mg/dL 8.5-10.1 Serum or plasma total bilirubin measurement (mass/volu me) 0.3 mg/dL 0.1-1.0 Serum or plasma alkaline phosphatase kate surement (enzymatic activity/volume) 83 U/L 40-136 Serum or plasma aspartate aminotransfera se measurement (enzymatic activity/volume) 26 U/L 5-34 Serum or plasma alanine aminotransferase measurement (enzymatic activity/volume) 25 U/L 0-55 Serum or plasma protein measurement (mass/volume) 6.5 g/dL 6.4-8.2 Serum or plasma albumin measurement (mass/volume) 3.8 g/dL 3.2-4.5 CALCIUM CORRECTED 8.5 mg/dL 8.5-10.1 Serum heterophile antibody titer - 12/08 21:00 Serum heterophile antibody titer NEGATIVE NEGATIVE Bacterial blood culture - 12/08/18 21:00 Bacterial blood culture NG NRG Influenza virus A and B antigen detectio n - 12/08/18 21:01 FLU RESULT NEGATIVE FOR INFLUENZA A AND B ANTIGENS BY IA NRG Bacterial blood culture - 12/08/18 21:36 Bacterial blood culture NG NRG Complete urinalysis with reflex to cultu re - 12/08/18 22:52 Urine color determination YELLOW NRG Urine clarity determination CLEAR NR G Urine pH measurement by test strip 6.5 5-9 Specific gravity of urine by test strip 1.015 1.016-1.022 Urine protein assay by test strip, semi-quantitative 1+ NEGATIVE Urine glucose detection by automated test strip NE GATIVE NEGATIVE Erythrocytes detection in urine sediment by light micr oscopy 1+ NEGATIVE Urine ketones detection by automated test strip 2+ NEGATIVE Urine nitrite detection by test strip NEGATIVE NEGATIVE Urine total bilirubin detection by test strip NEGA TIVE NEGATIVE Urine urobilinogen measurement by automated test strip (mass/volume) 1 mg/dL NORMAL Urine leukocyte esterase detection by dipstick 2+ NEGATIVE Automated urine sediment erythrocyte cou nt by microscopy (number/high power field) [HPF] NRG Automated urine sediment leukocyte count by microscopy (number/high power field) [HPF] NRG Bacteria detection in urine sediment by light microsco py FEW NRG Squamous epithelial cells detection in u rine sediment by light microscopy 5-10 NRG Crystals detection in urine sediment by light microsco py NONE NRG Casts detection in urine sediment by light microscopy NONE NRG Mucus detection in urine sediment by light microscopy MODERATE NRG Complete urinalysis with reflex to culture CULTURE PENDING NRG Bacterial urine culture - 12/08/18 22:52 Bacterial urine culture 3 OR MORE NRG COLONY COUNT 30,000 CFU/ML NRG FTX;REPORTABLE GRAM POSITIVES, SUGGESTING PROBABLE NRG FREE TEXT ENTRY 2 COLLECTION CONTAMINATION WITH SK IN KATIE NRG FREE TEXT ENTRY 3 NO SUSCEPTIBILITY PERFORMED NRG Complete blood count (CBC) with automate d white blood cell (WBC) differential - 03/06/19 10:40 Blood leukocytes automated count (number/volume) 5.1 10*3/uL 4.3-11.0 Blood erythrocytes automated count (number/volume) 4.60 10*6/uL 4.35-5.85 Venous blood hemoglobin measurement (mass/volume) 12.7 g/dL 11.5-16.0 Blood hematocrit (volume fraction) 39 % 35-52 Automated erythrocyte mean corpuscular volume 85 [ foz_us] 80-99 Automated erythrocyte mean corpuscular h emoglobin (mass per erythrocyte) 28 pg 25-34 Automated erythrocyte mean corpuscular h emoglobin concentration measurement (mass/volume) 32 g/dL 32-36 Automated erythrocyte distribution width ratio 13. 9 % 10.0- 14.5 Automated blood platelet count (count/volume) 209 10*3/uL 130-400 Automated blood platelet mean volume measurement 12.1 [foz_us] 7.4-10.4 Automated blood neutrophils/100 leukocytes 81 % 42-75 Automated blood lymphocytes/100 leukocytes 16 % 12-44 Blood monocytes/100 leukocytes 3 % 0-12 Automated blood eosinophils/100 leukocytes 0 % 0-10 Automated blood basophils/100 leukocytes 0 % 0-10 Blood neutrophils automated count (number/volume) 4.2 10*3 1.8-7.8 Blood lymphocytes automated count (number/volume) 0.8 10*3 1.0-4.0 Blood monocytes automated count (number/volume) 0. 2 10*3 0.0-1.0 Automated eosinophil count 0.0 10*3/uL 0 .0-0.3 Automated blood basophil count (count/volume) 0.0 10*3/uL 0.0-0.1 Serum or plasma choriogonadotropin (preg himanshu test) detection - 03/06/19 10:40 Serum or plasma choriogonadotropin ( test) de tection NEGATIVE NEGATIVE Comprehensive metabolic panel - 03/06/19 10:40 Serum or plasma sodium measurement (moles/volume) 140 mmol/L 135-145 Serum or plasma potassium measurement (moles/volume) 4.2 mmol/L 3.6-5.0 Serum or plasma chloride measurement (moles/volume) 108 mmol/L 98-107 Carbon dioxide 24 mmol/L 21-32 Serum or plasma anion gap determination (moles/volume) 8 mmol/L 5-14 Serum or plasma urea nitrogen measurement (mass/volume ) 7 mg/dL 7-18 Serum or plasma creatinine measurement (mass/volume) 0.64 mg/dL 0.60-1.30 Serum or plasma urea nitrogen/creatinine mass ratio 11 NRG Serum or plasma creatinine measurement w ith calculation of estimated glomerular filtration rate > NRG Serum or plasma glucose measurement (mass/volume) 91 mg/dL 70-105 Serum or plasma calcium measurement (mass/volume) 9.4 mg/dL 8.5-10.1 Serum or plasma total bilirubin measurement (mass/volu me) 0.5 mg/dL 0.1-1.0 Serum or plasma alkaline phosphatase kate surement (enzymatic activity/volume) 71 U/L 40-136 Serum or plasma aspartate aminotransfera se measurement (enzymatic activity/volume) 14 U/L 5-34 Serum or plasma alanine aminotransferase measurement (enzymatic activity/volume) 11 U/L 0-55 Serum or plasma protein measurement (mass/volume) 7.2 g/dL 6.4-8.2 Serum or plasma albumin measurement (mass/volume) 4.2 g/dL 3.2-4.5 CALCIUM CORRECTED 9.2 mg/dL 8.5-10.1 Erythrocyte sedimentation rate by misty gren method - 03/06/19 10:40 Erythrocyte sedimentation rate by westergren method 7 mm 0- 20 GC/CHLAMYDIA (SWAB OR URINE)-RAPID - 12:03 CHLAMYDIA TRACHOMATIS RNA, TMA NOT DETECTED NOT DETECTED NEISSERIA GONORRHOEAE RNA, TMA NOT DETECTED NOT DETECTED COMMENT NRG CULTURE, URINE - 05/07/19 12:03 CULTURE, URINE, ROUTINE SEE NOTE NRG Complete urinalysis with reflex to cultu re - 05/07/19 12:17 Urine color determination YELLOW NRG Urine clarity determination CLEAR NR G Urine pH measurement by test strip 7.0 5-9 Specific gravity of urine by test strip <= 1.016-1.022 Urine protein assay by test strip, semi-quantitative NEGATIVE NEGATIVE Urine glucose detection by automated test strip NE GATIVE NEGATIVE Erythrocytes detection in urine sediment by light micr oscopy NEGATIVE NEGATIVE Urine ketones detection by automated test strip NE GATIVE NEGATIVE Urine nitrite detection by test strip NEGATIVE NEGATIVE Urine total bilirubin detection by test strip NEGA TIVE NEGATIVE Urine urobilinogen measurement by automated test strip (mass/volume) 0.2 mg/dL < = 1.0 Urine leukocyte esterase detection by dipstick TRA CE NEGATIVE Automated urine sediment erythrocyte cou nt by microscopy (number/high power field) NONE NRG Automated urine sediment leukocyte count by microscopy (number/high power field) RARE NRG Bacteria detection in urine sediment by light microsco py TRACE NRG Squamous epithelial cells detection in u rine sediment by light microscopy 5-10 NRG Crystals detection in urine sediment by light microsco py NONE NRG Casts detection in urine sediment by light microscopy NONE NRG Mucus detection in urine sediment by light microscopy NEGATIVE NRG Complete urinalysis with reflex to culture NO NRG Complete blood count (CBC) with automate d white blood cell (WBC) differential - 05/07/19 14:33 Blood leukocytes automated count (number/volume) 8.7 10*3/uL 4.3-11.0 Blood erythrocytes automated count (number/volume) 4.37 10*6/uL 4.35-5.85 Venous blood hemoglobin measurement (mass/volume) 12.1 g/dL 11.5-16.0 Blood hematocrit (volume fraction) 37 % 35-52 Automated erythrocyte mean corpuscular volume 85 [ foz_us] 80-99 Automated erythrocyte mean corpuscular h emoglobin (mass per erythrocyte) 28 pg 25-34 Automated erythrocyte mean corpuscular h emoglobin concentration measurement (mass/volume) 33 g/dL 32-36 Automated erythrocyte distribution width ratio 14. 3 % 10.0- 14.5 Automated blood platelet count (count/volume) 208 10*3/uL 130-400 Automated blood platelet mean volume measurement 12.1 [foz_us] 7.4-10.4 Automated blood neutrophils/100 leukocytes 77 % 42-75 Automated blood lymphocytes/100 leukocytes 15 % 12-44 Blood monocytes/100 leukocytes 7 % 0-12 Automated blood eosinophils/100 leukocytes 1 % 0-10 Automated blood basophils/100 leukocytes 0 % 0-10 Blood neutrophils automated count (number/volume) 6.6 10*3 1.8-7.8 Blood lymphocytes automated count (number/volume) 1.3 10*3 1.0-4.0 Blood monocytes automated count (number/volume) 0. 6 10*3 0.0-1.0 Automated eosinophil count 0.1 10*3/uL 0 .0-0.3 Automated blood basophil count (count/volume) 0.0 10*3/uL 0.0-0.1 Serum or plasma choriogonadotropin (preg himanshu test) detection - 05/07/19 14:33 Serum or plasma choriogonadotropin ( test) de tection NEGATIVE NEGATIVE Comprehensive metabolic panel - 05/07/19 14:33 Serum or plasma sodium measurement (moles/volume) 139 mmol/L 135-145 Serum or plasma potassium measurement (moles/volume) 4.0 mmol/L 3.6-5.0 Serum or plasma chloride measurement (moles/volume) 110 mmol/L 98-107 Carbon dioxide 23 mmol/L 21-32 Serum or plasma anion gap determination (moles/volume) 6 mmol/L 5-14 Serum or plasma urea nitrogen measurement (mass/volume ) 7 mg/dL 7-18 Serum or plasma creatinine measurement (mass/volume) 0.67 mg/dL 0.60-1.30 Serum or plasma urea nitrogen/creatinine mass ratio 10 NRG Serum or plasma creatinine measurement w ith calculation of estimated glomerular filtration rate > NRG Serum or plasma glucose measurement (mass/volume) 82 mg/dL 70-105 Serum or plasma calcium measurement (mass/volume) 8.7 mg/dL 8.5-10.1 Serum or plasma total bilirubin measurement (mass/volu me) 0.6 mg/dL 0.1-1.0 Serum or plasma alkaline phosphatase kate surement (enzymatic activity/volume) 59 U/L 40-136 Serum or plasma aspartate aminotransfera se measurement (enzymatic activity/volume) 13 U/L 5-34 Serum or plasma alanine aminotransferase measurement (enzymatic activity/volume) 10 U/L 0-55 Serum or plasma protein measurement (mass/volume) 6.7 g/dL 6.4-8.2 Serum or plasma albumin measurement (mass/volume) 4.0 g/dL 3.2-4.5 CALCIUM CORRECTED 8.7 mg/dL 8.5-10.1 Serum or plasma C reactive protein measu rement (mass/volume) - 05/07/19 14:33 Serum or plasma C reactive protein measurement (mass/v olume) 0.03 mg/dL 0.00-0.50 Encounters ACCT No. Visit Date/Time Discharge Status Pt. Type Provider Facility Loc./Unit Complaint [id number] 07/02/2019 17:40:00 [id number] 05/07/2019 10:20:00 Document Registration [id number] 10/24/2018 14:00:00 Document Registration [id number] 07/02/2019 21:43:00 22:56:00 DIS Emergency TEMITOPE DUENAS [employer]IST[employer] [facility] ER THYROID SWOLLEN [id number] 05/07/2019 11:58:00 19:09:00 DIS Emergency KAMI ANAND, EMEKA Kaufman [facility] ER LOWER ABD PAIN;DIZZINES S;NAUSEA [id number] 03/06/2019 08:11:00 12:13:00 DIS Emergency GINO ANAND, JOSE Dubon [facility] ER HEADACHE [id number] 02/02/2019 09:30:00 23:59:59 CLS Outpatient LANA TALAMANTES [facility] RAD ABD PAIN,CRAMPING AND D IARRHEA [id number] 12/08/2018 18:31:00 23:37:00 DIS Emergency NIKHIL SAMUELS [facility] ER DIZZY, HEADACHE, ABD P AIN [id number] 10/20/2016 13:30:00 017 23:59:59 CLS Outpatient MITCHELL LEE DO [facility] RAD PREG W/INCONLUSIVE REXA L VIABILITY
== END 2019-07-02 22:56 | disposition home or self-care (01) ==
LOC: EDUNIT# 21:42 → ER 21:43
DX: F41.9 Anxiety disorder, unspecified (principal); M54.2 Cervicalgia; Z88.0 Allergy status to penicillin
CPT/HCPCS: 99283

== ENCOUNTER 2019-08-06 12:05 | Emergency (ER) | payer MEDICAID ==
[~2019-08-06] VITALS: Ht 162.5 cm; Wt 111.0 kg
[~2019-08-06 12:05] MED LIST changes: +ALPR0.25 PO
--- OUTSIDE RECORDS SUMMARY | 2019-08-06 12:45 | XMS REPORT | Continuity of Care Document ---
Author Organization Unknown Address Unknown Phone Unavailable Allergies Active Description Code Type Severity Reaction Onset Reported/Identified Relationship to Patient Clinical Status Yes Penicillins [id number] Drug Aller gy Unknown N/A 12/08/2018 Medications There is no data. Problems Date Dx Coded Attending Type Code Diagnosis Diagnosed By 11/04/2016 MITCHELL LEE DO Ot O36.80X0 W INCONCLUSIVE VIABILITY 11/04/2016 MITCHELL LEE DO Ot Z3A.0 8 8 WEEKS GESTATION OF 12/08/2018 NIKHIL SMAUELS Ot E86.9 VOLUME DEPLETION, UNSPECIFIED 12/08/2018 NIKHIL [...] SAMUELS Ot R11.0 NAUSEA 12/12/2018 KORIN GLORIA NIKHIL Karely Ot Z87.59 PERSONAL [...] .2 CRAMP AND SPASM 03/06/2019 GINO ANAND, JOES T Ot G43.109 MIGRAINE WITH AURA, NOT [...] R10. 31 RIGHT LOWER QUADRANT PAIN 05/07/2019 EEMKA MCCLURE MD Ot Z88. 0 ALLERGY STATUS TO PENICILLIN 05/07/2019 EMEKA MCCLURE MD Ot Z90. 49 ACQUIRED ABSENCE OF OTHER SPECIFIED PART 05/10/2019 EMEKA MCCLURE MD Ot N94. 0 MITTELSCHMERZ 05/10/2019 EMEKA MCCLURE MD Ot R10. 31 RIGHT LOWER QUADRANT PAIN 05/10/2019 EMEKA MCCLURE MD Ot Z88. 0 ALLERGY STATUS TO PENICILLIN 05/10/2019 EMEKA MCCLURE MD Ot Z90. 49 ACQUIRED ABSENCE OF OTHER SPECIFIED PART 07/02/2019 TEMITOPE DUENAS APRN Ot F41 .9 ANXIETY DISORDER, UNSPECIFIED 07/02/2019 TEMITOPE DUENAS APRN Ot M54 .2 CERVICALGIA 07/02/2019 TEMITOPE DUENAS APRN Ot Z88 .0 ALLERGY STATUS TO PENICILLIN 07/05/2019 TEMITOPE DUENAS APRN Ot F41 .9 ANXIETY DISORDER, UNSPECIFIED 07/05/2019 TEMITOPE DUENAS APRN Ot M54 .2 CERVICALGIA 07/05/2019 TEMITOPE DUENAS APRN Ot Z88 .0 ALLERGY STATUS TO PENICILLIN Procedures There is no data. Results Test [...] protein measurement (mass/v olume) 0.03 mg/dL 0.00-0.50 THYROID ANALYZER - 07/02/19 16:46 TSH 1.63 mIU/L NRG VITAMIN B12/FOLATE, SERUM PANEL - 16:46 VITAMIN B12 318 pg/mL 200-1100 FOLATE, SERUM 8.7 ng/mL NRG Encounters ACCT No. Visit Date/Time Discharge Status Pt. Type Provider Facility Loc./Unit Complaint [id number] 07/26/2019 14:00:00 07/26/2019 23:59: 59 CLS Outpatient LANA JASMINE [facility] [id number] 07/02/2019 17:40:00 Document Registration [id number] 05/07/2019 10:20:00 Document Registration [id number] 10/24/2018 14:00:00 Document Registration [id number] 07/02/2019 21:43:00 22:56:00 DIS Emergency TEMITOPE DUENAS FORECLOSURE SPECIALIST [facility] ER THYROID SWOLLEN [id number] 05/07/2019 11:58:00 19:09:00 DIS Emergency EMEKA MCCLURE MD [facility] ER LOWER ABD PAIN;DIZZINES S;NAUSEA [id number] 03/06/2019 08:11:00 12:13:00 DIS Emergency GINO ANAND, JOSE Dubon [facility] ER HEADACHE [id number] 02/02/2019 09:30:00 23:59:59 CLS Outpatient LANA TALAMANTES [facility] RAD ABD PAIN,CRAMPING AND D IARRHEA [id number] 12/08/2018 18:31:00 23:37:00 DIS Emergency NIKHIL SAMUELS [facility] ER DIZZY, HEADACHE, ABD P AIN [id number] 10/20/2016 13:30:00 23:59:59 CLS Outpatient MITCHELL LEE DO [facility] RAD PREG W/INCONLUSIVE FETA L VIABILITY
--- NOTE | 2019-08-06 12:54 | ED Cough/URI ---
General Chief Complaint: Respiratory Problems Stated Complaint: SOA;SORE THROAT Source: patient Exam Limitations: no limitations History of Present Illness Date Seen by Provider: Aug 06, 2019 Time Seen by Provider: 12:54 Initial Comments 23-year-old female presents with burning in her throat down into her epigastric area. She also complains of pain when she takes a deep breath. She feels like she is having a hard time getting her breath. Patient does not have any cough. She does not have any fever. She is maybe chilled. Symptoms were gone for about to 3 days. She does not have any swollen lymph nodes. Patient is not complaining of any nausea vomiting or diaphoresis. Allergies and Home Medications Allergies Coded Allergies: Penicillins (Verified Allergy, Unknown, 12/08/18) pt states she is not sure if she has ever had a reaction, but states her mom is allergic to penicillin so she was told to list it as an allergy Home Medications Alprazolam 0.25 Mg Tablet, 0.25 MG PO BID PRN for ANXIETY Prescribed by: TEMITOPE DUENAS on 07/02/192199 Hyoscyamine Sulfate 0.125 Mg Tab.subl, 0.125 MG SL Q4H PRN for SPASMS Prescribed by: NIKHIL LANGLEY on 12/08/182256 Ondansetron 8 Mg Tab.rapdis, 8 MG PO Q6H PRN for NAUSEA/VOMITING Prescribed by: NIKHIL LANGLEY on 12/08/182256 Ondansetron 4 Mg Tab.rapdis, 4 MG PO Q4H PRN for NAUSEA/VOMITING Prescribed by: JOSE PERLA on 03/06/19 1151 Ondansetron 4 Mg Tab.rapdis, 4 MG PO Q6H PRN for NAUSEA/VOMITING Prescribed by: EMEKA MCCLURE on 05/07/19 1901 Patient Home Medication List Home Medication List Reviewed: Yes Review of Systems Review of Systems Constitutional: chills; No diaphoresis, No dizziness, No fever Respiratory: see HPI Cardiovascular: see HPI Gastrointestinal: no symptoms reported Musculoskeletal: no symptoms reported Skin: no symptoms reported Psychiatric/Neurological: No Symptoms Reported Past Tpatsav-Rcfwac-Mykjtb Hx Past Med/Social Hx: Reviewed Nursing Past Med/Soc Hx Patient Social History 2nd Hand Smoke Exposure: No Immunizations Up To Date Tetanus Booster (TDap): Unknown PED Vaccines UTD: Yes Past Medical History Surgeries: Yes (gastric sleeve) Section, Gallbladder Respiratory: No Cardiac: No Neurological: No Reproductive Disorders: No 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 oz. 111.831203hk; 42.00 BMI Method:Stated General Appearance: WD/WN HEENT: PERRL/EOMI, TMs normal Neck: full range of motion, supple, normal inspection Respiratory: lungs clear, normal breath sounds, no respiratory distress Cardiovascular: normal peripheral pulses, regular rate, rhythm Gastrointestinal: non tender, soft Extremities: normal range of motion Neurologic/Psychiatric: inspector floor II-XII nml as tested, alert, normal mood/affect, oriented x 3 Skin: normal color, warm/dry Lymphatic: no adenopathy Progress/Results/Core Measures Suspected Sepsis SIRS Temperature: Pulse: Respiratory Rate: Laboratory Tests 08/06/19 13:40: White Blood Count 5.8 Blood Pressure / Mean: Laboratory Tests 08/06/19 13:40: Creatinine 0.71, INR Comment 1.0, Platelet Count 207, Total Bilirubin 0.3 Results/Orders Lab Results Laboratory Tests Test 08/06/19 13:40 Range/Units White Blood Count 5.8 4.3-11.0 10^3/uL Red Blood Count 4.56 4.35-5.85 10^6/uL Hemoglobin 12.5 11.5-16.0 G/DL Hematocrit 39 35-52 % Mean Corpuscular Volume 85 80-99 FL Mean Corpuscular Hemoglobin 27 25-34 PG Mean Corpuscular Hemoglobin Concent 32 32-36 G/DL Red Cell Distribution Width 13.2 10.0-14.5 % Platelet Count 207 130-400 10^3/uL Mean Platelet Volume 11.7 H 7.4-10.4 FL Neutrophils (%) (Auto) 64 42-75 % Lymphocytes (%) (Auto) 24 12-44 % Monocytes (%) (Auto) 10 0-12 % Eosinophils (%) (Auto) 1 0-10 % Basophils (%) (Auto) 0 0-10 % Neutrophils # (Auto) 3.7 1.8-7.8 X 10^3 Lymphocytes # (Auto) 1.4 1.0-4.0 X 10^3 Monocytes # (Auto) 0.6 0.0-1.0 X 10^3 Eosinophils # (Auto) 0.1 0.0-0.3 10^3/uL Basophils # (Auto) 0.0 0.0-0.1 10^3/uL Prothrombin Time 14.0 12.2-14.7 SEC INR Comment 1.0 0.8-1.4 Sodium Level 140 135-145 MMOL/L Potassium Level 4.1 3.6-5.0 MMOL/L Chloride Level 109 H 98-107 MMOL/L Carbon Dioxide Level 21 21-32 MMOL/L Anion Gap 10 5-14 MMOL/L Blood Urea Nitrogen 5 L 7-18 MG/DL Creatinine 0.71 0.60-1.30 MG/DL Estimat Glomerular Filtration Rate > 60 BUN/Creatinine Ratio 7 Glucose Level 74 70-105 MG/DL Calcium Level 9.2 8.5-10.1 MG/DL Corrected Calcium 9.1 8.5-10.1 MG/DL Magnesium Level 2.1 1.6-2.4 MG/DL Total Bilirubin 0.3 0.1-1.0 MG/DL Aspartate Amino Transf (AST/SGOT) 16 5-34 U/L Alanine Aminotransferase (ALT/SGPT) 11 0-55 U/L Alkaline Phosphatase 57 40-136 U/L Troponin I < 0.028 <0.028 NG/ML Total Protein 7.4 6.4-8.2 GM/DL Albumin 4.1 3.2-4.5 GM/DL Serum Test, Qualitative NEGATIVE NEGATIVE My Orders Orders - MOJICA,MANOHAR L DO Cbc With Automated Diff (08/06/19 13:01) Magnesium (08/06/19 13:01) Chest 1 View, Ap/Pa Only (08/06/19 13:01) Ekg Tracing (08/06/19 13:01) Comprehensive Metabolic Panel (08/06/19 13:01) Protime With Inr (08/06/19 13:01) Ed Iv/Invasive Line Start (08/06/19 13:01) Troponin I (08/06/19 13:01) Lidocaine 2% Viscous 15 Ml (Xylocaine Vi (08/06/19 13:15) Antacid Suspension (Mylanta Suspension (08/06/19 13:15) Hcg,Qualitative Serum (08/06/19 13:46) Medications Given in ED Current Medications Medications Dose Ordered Sig/Catrachita Route Start Time Stop Time Status Last Admin Dose Admin Al Hydrox/Mg Hydrox/Simethicone 30 ml ONCE ONCE PO 08/06/19 13:15 08/06/19 13:16 DC 08/06/19 13:42 30 ML Lidocaine HCl 15 ml ONCE ONCE PO 08/06/19 13:15 08/06/19 13:16 DC 08/06/19 13:42 15 ML Vital Signs/I&O 08/06/19 12:05 Temp 36.4 Pulse 89 Resp 18 B/P (MAP) 136/81 (99) Pulse Ox 100 O2 Delivery Room Air Capillary Refill : Progress Note : Time: 14:56 Progress Note Patient with no acute findings on lab x-ray or physical exam. Discussed with patient and her symptoms are likely due to allergic rhinitis versus esophageal reflux or a combination. Patient should start a antacid and should also consider some like a Flonase, antihistamine or other treatment for allergic rhinitis. Recommend she follow-up with her primary care provider in a few days for continuation of care recheck of symptoms. She is discharged home in stable condition Departure Impression Primary Impression: Allergic rhinitis Qualified Codes: J30.9 - Allergic rhinitis, unspecified Additional Impression: Gastro-esophageal reflux Qualified Codes: K21.9 - Gastro-esophageal reflux disease without esophagitis Disposition: HOME, SELF-CARE Condition: Stable Departure-Patient Inst. Referrals: [facility] (PCP) Primary Care Physician LANA JASMINE (Family) Primary Care Physician Patient Instructions: Acid Reflux and Gastroesophageal Reflux Disease in Adults Add. Discharge Instructions: Recommend he started a reflux medication such as Pepcid. If no improvement in approximately one week recommend you try medication for allergic rhinitis such as Zyrtec and Flonase. Follow-up with your primary care provider in a couple days or sooner if not improving or symptoms significantly worsen Emergency department focuses on treating and ruling out life-threatening diseases. Whenever possible, a diagnosis is given. However, most patients are given an impression based on their history, physical exam, and workup during your brief time in the ER. Information about probable diagnosis and other educat ional material has been provided. Please take the time to read and understand this information. It is very important that you follow up with a physician as discussed during the visit today. Failure to adhere to your follow-up instructions may lead to severe disability, injury, or so please make sure to keep your appointments or obtain one as requested. Please keep in mind the emergency department is not designed to your primary care or "family doctor" and nonurgent issues are best evaluated by an outpatient physician All discharge instructions reviewed with patient and/or family. Voiced understanding. MANOHAR MOJICA DO Aug 06, 2019 12:54
[2019-08-06] MEDS ORDERED: ANTACID SUSP 30 ML UDC (MYLANTA) PO ONE (13:15)
[2019-08-06] MEDS ORDERED: LIDOCAINE 2% VISCOUS 15 ML UDC PO ONE (13:15)
[2019-08-06 14:01] LABS: BASOPHILS % (AUTO) 0 % (0-10); EOSINOPHILS # (AUTO) 0.1 10^3/uL (0.0-0.3); EOSINOPHILS % (AUTO) 1 % (0-10); HEMATOCRIT 39 % (35-52); HEMOGLOBIN 12.5 G/DL (11.5-16.0); LYMPHOCYTES # (AUTO) 1.4 X 10^3 (1.0-4.0); LYMPHOCYTES % (AUTO) 24 % (12-44); MEAN CORPUSCULAR HEMOGLOBIN 27 PG (25-34); MEAN CORPUSCULAR HGB CONC 32 G/DL (32-36); MEAN CORPUSCULAR VOLUME 85 FL (80-99); MEAN PLATELET VOLUME 11.7 FL (7.4-10.4); MONOCYTES # (AUTO) 0.6 X 10^3 (0.0-1.0); MONOCYTES % (AUTO) 10 % (0-12); NEUTROPHILS # (AUTO) 3.7 X 10^3 (1.8-7.8); NEUTROPHILS % (AUTO) 64 % (42-75); PLATELET COUNT 207 10^3/uL (130-400); RED CELL DISTRIBUTION WIDTH 13.2 % (10.0-14.5); WHITE BLOOD COUNT 5.8 10^3/uL (4.3-11.0)
--- NOTE | 2019-08-06 14:07 | NUR ---
Pt reports no relief from GI cocktail. Pt reports "my throat is on fire." Pt now complaining pain in R ear.
[2019-08-06 14:21] LABS: ALBUMIN 4.1 GM/DL (3.2-4.5); CHLORIDE 109 MMOL/L (98-107); POTASSIUM 4.1 MMOL/L (3.6-5.0); SODIUM 140 MMOL/L (135-145)
[2019-08-06 14:23] LABS: CALCIUM 9.2 MG/DL (8.5-10.1)
[2019-08-06 14:24] LABS: GLUCOSE 74 MG/DL (70-105); TOTAL PROTEIN 7.4 GM/DL (6.4-8.2)
[2019-08-06 14:25] LABS: CARBON DIOXIDE 21 MMOL/L (21-32)
[2019-08-06 14:26] LABS: BILIRUBIN,TOTAL 0.3 MG/DL (0.1-1.0)
[2019-08-06 14:27] LABS: ALKALINE PHOSPHATASE 57 U/L (40-136)
[2019-08-06 14:28] LABS: CREATININE SERUM 0.71 MG/DL (0.60-1.30); GFR ESTIMATED > 60
[2019-08-06 14:29] LABS: BUN/CREATININE RATIO 7
[2019-08-06 14:30] LABS: ALANINE AMINOTRANSFERASE 11 U/L (0-55); MAGNESIUM 2.1 MG/DL (1.6-2.4)
--- NOTE | 2019-08-06 14:36 | Diagnostic Imaging Report ---
INDICATION: Sore throat. Comparison with 12/08/2018. FINDINGS: Portable chest. The lungs are well-aerated. There are no infiltrates or masses. The heart is not enlarged. No pulmonary edema or hilar adenopathy. No pneumothorax or pleural effusion. No bony abnormalities. IMPRESSION: Normal portable chest. Dictated by: Dictated on workstation # [id number]
[2019-08-06 15:05] VITALS: BP 132/80
== END 2019-08-06 15:08 | disposition home or self-care (01) ==
LOC: EDUNIT# 12:05 → ER 12:06
DX: J30.9 Allergic rhinitis, unspecified (principal); K21.9 Gastro-esophageal reflux disease without esophagitis
CPT/HCPCS: 36415; 71045; 80053; 83735; 84484; 84703; 85025; 85610; 93005

== ENCOUNTER → 2019-10-18 | Outpatient (CLI) | payer MEDICAID ==
[~2019-10-18] VITALS: Ht 64 cm; Wt 109.0 kg
[2019-10-18] VITALS (29 sets, daily range): BP systolic 87–140; BP diastolic 56–109
[~2019-10-18] MED LIST changes: +NS IV 1000 ML 1,000 ML IV ONE; +NS IV 1000 ML 1,000 ML ONE
== END ==
LOC: CARD 11:40
PROVIDERS: ATTEND Internal Medicine Interventional Cardiology
DX: R06.02 Shortness of breath (principal); R00.2 Palpitations; R55 Syncope and collapse; R42 Dizziness and giddiness
CPT/HCPCS: 93660

== ENCOUNTER 2019-10-26 10:14 | Outpatient (RCR) | payer MEDICAID ==
[~2019-10-26 10:14] MED LIST changes: -NS IV 1000 ML 1,000 ML IV ONE; -NS IV 1000 ML 1,000 ML ONE
== END 2020-01-24 | disposition home or self-care (01) ==
LOC: CARD 10:14
PROVIDERS: ATTEND Internal Medicine Interventional Cardiology
DX: I10 Essential (primary) hypertension (principal)
CPT/HCPCS: 93306

== ENCOUNTER → 2020-04-24 | Outpatient (CLI) | payer MEDICAID | LOC: CARD 14:00 | PROVIDERS: ATTEND Internal Medicine Cardiovascular Disease | DX: R55 Syncope and collapse (principal) | CPT/HCPCS: 93225; 93226 ==

== ENCOUNTER → 2020-04-29 | Outpatient (CLI) | payer MEDICAID | LOC: CARD 11:00 | PROVIDERS: ATTEND Internal Medicine Cardiovascular Disease | DX: R07.9 Chest pain, unspecified (principal) | CPT/HCPCS: 93306; 93351 ==

== ENCOUNTER 2020-05-02 18:41 | Emergency (ER) | payer MEDICAID ==
[~2020-05-02] VITALS: Ht 162 cm; Wt 117.0 kg
--- NOTE | 2020-05-02 19:09 | NUR ---
PROVIDER NOTIFIED OF COVID SCREENING RESULTS.
--- NOTE | 2020-05-02 19:16 | ED Chest Pain ---
General Stated Complaint: SOB Source: patient Exam Limitations: no limitations History of Present Illness Date Seen by Provider: May 02, 2020 Time Seen by Provider: 19:14 Initial Comments To ER by private vehicle with reports of central chest tightness and difficulty taking a deep breath. This began at 5:30 PM. History of anxiety. Denies palpitations. She had Covid back in February. No fevers chills or cough. Timing/Duration: changing over time Severity/Quality: moderate Location: central Radiation: no radiation Activities at Onset: none ASA po INTERNAL MEDICINE PHYSICIAN: No NTG SL INTERNAL MEDICINE PHYSICIAN: No Associated Symptoms: shortness of breath Allergies and Home Medications Allergies Coded Allergies: Penicillins (Verified Allergy, Unknown, 12/08/18) pt states she is not sure if she has ever had a reaction, but states her mom is allergic to penicillin so she was told to list it as an allergy Home Medications Alprazolam 0.25 Mg Tablet, 0.25 MG PO BID PRN for ANXIETY Prescribed by: TEMITOPE DUENAS on 07/02/192199 Hyoscyamine Sulfate 0.125 Mg Tab.subl, 0.125 MG SL Q4H PRN for SPASMS Prescribed by: NIKHIL LANGLEY on 12/08/182256 Ondansetron 8 Mg Tab.rapdis, 8 MG PO Q6H PRN for NAUSEA/VOMITING Prescribed by: NIKHIL LANGLEY on 12/08/182256 Ondansetron 4 Mg Tab.rapdis, 4 MG PO Q4H PRN for NAUSEA/VOMITING Prescribed by: JOSE PERLA on 03/06/19 1151 Ondansetron 4 Mg Tab.rapdis, 4 MG PO Q6H PRN for NAUSEA/VOMITING Prescribed by: EMEKA MCCLURE on 05/07/19 1901 Patient Home Medication List Home Medication List Reviewed: Yes Review of Systems Review of Systems Constitutional: see HPI Respiratory: See HPI, Shortness of Air Cardiovascular: See HPI, Chest Pain Gastrointestinal: No Symptoms Reported Genitourinary: No Symptoms Reported Musculoskeletal: no symptoms reported Skin: no symptoms reported Psychiatric/Neurological: No Symptoms Reported Endocrine: No Symptoms Reported Hematologic/Lymphatic: No Symptoms Reported Past Hzyesnp-Ijpmcm-Fmgtjs Hx Patient Social History 2nd Hand Smoke Exposure: No Immunizations Up To Date Tetanus Booster (TDap): Unknown PED Vaccines UTD: Yes Past Medical History Surgeries: Yes (gastric sleeve) Section, Gallbladder Respiratory: No Cardiac: No Neurological: No Reproductive Disorders: No 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 oz. 111.354773is; 266.11 BMI Method:Stated General Appearance: No Apparent Distress, WD/WN, Other (Alert and oriented no distress. Respiratory rate is normal oxygen saturation 100% on room air, heart rate is in the 80s.) HEENT: PERRL/EOMI, TMs Normal Neck: Full Range of Motion, Normal Inspection Respiratory: No Accessory Muscle Use, No Respiratory Distress Cardiovascular: Regular Rate, Rhythm, Normal Peripheral Pulses Gastrointestinal: Normal Bowel Sounds, Non Tender, Soft Extremity: Normal Capillary Refill, Normal Inspection Neurologic/Psychiatric: Alert, Oriented x3 Skin: Normal Color, Warm/Dry Progress/Results/Core Measures Results/Orders Lab Results Laboratory Tests Test 05/02/20 19:20 Range/Units White Blood Count 7.8 4.3-11.0 10^3/uL Red Blood Count 4.69 3.80-5.11 10^6/uL Hemoglobin 12.4 11.5-16.0 g/dL Hematocrit 39 35-52 % Mean Corpuscular Volume 84 80-99 fL Mean Corpuscular Hemoglobin 26 25-34 pg Mean Corpuscular Hemoglobin Concent 32 32-36 g/dL Red Cell Distribution Width 12.9 10.0-14.5 % Platelet Count 251 130-400 10^3/uL Mean Platelet Volume 11.1 9.0-12.2 fL Immature Granulocyte % (Auto) 0 % Neutrophils (%) (Auto) 59 42-75 % Lymphocytes (%) (Auto) 33 12-44 % Monocytes (%) (Auto) 7 0-12 % Eosinophils (%) (Auto) 0 0-10 % Basophils (%) (Auto) 1 0-10 % Neutrophils # (Auto) 4.6 1.8-7.8 10^3/uL Lymphocytes # (Auto) 2.6 1.0-4.0 10^3/uL Monocytes # (Auto) 0.6 0.0-1.0 10^3/uL Eosinophils # (Auto) 0.0 0.0-0.3 10^3/uL Basophils # (Auto) 0.0 0.0-0.1 10^3/uL Immature Granulocyte # (Auto) 0.0 0.0-0.1 10^3/uL D-Dimer 0.42 0.00-0.49 UG/ML Sodium Level 139 135-145 MMOL/L Potassium Level 3.8 3.6-5.0 MMOL/L Chloride Level 106 98-107 MMOL/L Carbon Dioxide Level 23 21-32 MMOL/L Anion Gap 10 5-14 MMOL/L Blood Urea Nitrogen 8 7-18 MG/DL Creatinine 0.76 0.60-1.30 MG/DL Estimat Glomerular Filtration Rate > 60 BUN/Creatinine Ratio 11 Glucose Level 83 70-105 MG/DL Calcium Level 11.2 H 8.5-10.1 MG/DL My Orders Orders - TEMITOPE DUENAS APRN Cbc With Automated Diff (05/02/20 19:13) Fibrin Degradation Products (05/02/20 19:13) Basic Metabolic Panel (05/02/20 19:13) Chest 1 View, Ap/Pa Only (05/02/20 19:13) Ekg Tracing (05/02/20 19:13) Rx-Albuterol Inhaler (Rx-Ventolin Hfa) (05/02/20 19:57) Vital Signs/I&O 05/02/20 19:08 Temp 36.6 Pulse 83 Resp 20 B/P (MAP) 140/76 (97) Pulse Ox 100 O2 Delivery Room Air Diagnostic Imaging Diagonstic Imaging: Xray Plain Films/CT/US/NM/MRI: chest Departure Impression Primary Impression: Dyspnea Disposition: 01 HOME, SELF-CARE Condition: Stable Departure-Patient Inst. Decision time for Depature: 19:49 Referrals: [facility] (PCP) Primary Care Physician LANA JASMINE (Family) Primary Care Physician Patient Instructions: Shortness of Breath (Dyspnea) Add. Discharge Instructions: Follow-up with your doctor next week 2. Return to ER for any concerns. TEMITOPE DUENAS APRN May 02, 2020 19:15
[2020-05-02 19:30] LABS: BASOPHILS % (AUTO) 1 % (0-10); EOSINOPHILS % (AUTO) 0 % (0-10); HEMATOCRIT 39 % (35-52); HEMOGLOBIN 12.4 g/dL (11.5-16.0); LYMPHOCYTES # (AUTO) 2.6 10^3/uL (1.0-4.0); LYMPHOCYTES % (AUTO) 33 % (12-44); MEAN CORPUSCULAR HEMOGLOBIN 26 pg (25-34); MEAN CORPUSCULAR HGB CONC 32 g/dL (32-36); MEAN CORPUSCULAR VOLUME 84 fL (80-99); MEAN PLATELET VOLUME 11.1 fL (9.0-12.2); MONOCYTES # (AUTO) 0.6 10^3/uL (0.0-1.0); MONOCYTES % (AUTO) 7 % (0-12); NEUTROPHILS # (AUTO) 4.6 10^3/uL (1.8-7.8); NEUTROPHILS % (AUTO) 59 % (42-75); PLATELET COUNT 251 10^3/uL (130-400); WHITE BLOOD COUNT 7.8 10^3/uL (4.3-11.0)
[2020-05-02 19:38] LABS: CHLORIDE 106 MMOL/L (98-107); POTASSIUM 3.8 MMOL/L (3.6-5.0); SODIUM 139 MMOL/L (135-145)
[2020-05-02 19:39] LABS: CALCIUM 11.2 MG/DL (8.5-10.1)
[2020-05-02 19:40] LABS: GLUCOSE 83 MG/DL (70-105)
[2020-05-02 19:41] LABS: CARBON DIOXIDE 23 MMOL/L (21-32)
[2020-05-02 19:43] LABS: CREATININE SERUM 0.76 MG/DL (0.60-1.30); GFR ESTIMATED > 60
[2020-05-02 19:44] LABS: BUN/CREATININE RATIO 11
[2020-05-02] MEDS ORDERED: RX-ALBUTEROL INHALER (VENTOLIN HFA) 18 GM IH STA (19:57)
[2020-05-02 20:09] VITALS: BP 147/63
--- NOTE | 2020-05-02 20:10 | Diagnostic Imaging Report ---
INDICATION: Chest tightness. FINDINGS: Frontal view of the chest demonstrates the lungs to be clear. The heart, mediastinum, pulmonary vascularity and visualized bony thorax are normal. IMPRESSION: Normal chest. Dictated by: Dictated on workstation # [id number]
== END 2020-05-02 20:09 | disposition home or self-care (01) ==
LOC: EDUNIT# 18:41 → ER 18:43
DX: R06.00 Dyspnea, unspecified (principal); Z88.0 Allergy status to penicillin
CPT/HCPCS: 36415; 71045; 80048; 85025; 85379; 93005

== ENCOUNTER 2020-06-01 16:05 | Emergency (ER) | payer MEDICAID ==
[~2020-06-01] VITALS: Ht 162 cm; Wt 122.4 kg
[2020-06-01] MEDS ORDERED: LACTATED RINGERS 1,000 ML IV ONE (16:30)
[2020-06-01] MEDS ORDERED: fentaNYL INJECTION 100 MCG/2 ML AMP IVP ONE ×2 (16:30→18:00)
[2020-06-01] MEDS ORDERED: ONDANSETRON 4 MG/2 ML (SDV) Z0FRAN IVP ONE (16:30)
[2020-06-01 16:37] LABS: BASOPHILS % (AUTO) 0 % (0-10); EOSINOPHILS % (AUTO) 0 % (0-10); HEMATOCRIT 37 % (35-52); HEMOGLOBIN 11.7 g/dL (11.5-16.0); LYMPHOCYTES % (AUTO) 40 % (12-44); MEAN CORPUSCULAR HEMOGLOBIN 27 pg (25-34); MEAN CORPUSCULAR HGB CONC 32 g/dL (32-36); MEAN CORPUSCULAR VOLUME 85 fL (80-99); MEAN PLATELET VOLUME 11.7 fL (9.0-12.2); MONOCYTES # (AUTO) 0.4 10^3/uL (0.0-1.0); MONOCYTES % (AUTO) 6 % (0-12); NEUTROPHILS # (AUTO) 3.9 10^3/uL (1.8-7.8); NEUTROPHILS % (AUTO) 53 % (42-75); PLATELET COUNT 224 10^3/uL (130-400); WHITE BLOOD COUNT 7.4 10^3/uL (4.3-11.0)
--- NOTE | 2020-06-01 16:38 | ED Abdominal Pain ---
General Chief Complaint: Abdominal/GI Problems Stated Complaint: CRAMPS/INTERMITTENT FEVER Source of Information: Patient Exam Limitations: No Limitations (KEYUR HAMMER) History of Present Illness Date Seen by Provider: Jun 01, 2020 Time Seen by Provider: 16:33 Initial Comments Travon is a 24 y/o female that presents to the ER with 8/10 abdominal pain that started yesterday afternoon. She presented to [facility] yesterday and began treatment for UTI. She states the pain continued to get worse overnight and is located in the RLQ>LLQ. She does not know of any exacerbating events. Nothing makes it better. She has associated Nausea and Fever at home of 101. She denies vomiting, SOB,Chest pain and constipation at this time. She has an IUD which was placed in 2017 and denies risky sexual behavior. On exam the patient had a positive rosving sign and + mcburney in addition to rebound tenderness on exam. LMP was one to two months ago, she states it is not regular in timing. Timing/Duration: 1/2 Hour Severity/Quality: Moderate Location: RLQ, LLQ, Periumbilical Radiation: No Radiation Activities at Onset: None Associated Symptoms: Nausea/Vomiting (without vomiting ) (KEYUR HAMMER) Allergies and Home Medications Allergies Coded Allergies: Penicillins (Verified Allergy, Unknown, 12/08/18) pt states she is not sure if she has ever had a reaction, but states her mom is allergic to penicillin so she was told to list it as an allergy Home Medications Alprazolam 0.25 Mg Tablet, 0.25 MG PO BID PRN for ANXIETY Prescribed by: TEMITOPE DUENAS on 07/02/19 220 Hyoscyamine Sulfate 0.125 Mg Tab.subl, 0.125 MG SL Q4H PRN for SPASMS Prescribed by: NIKHIL LANGLEY on 12/08/182256 Ondansetron 8 Mg Tab.rapdis, 8 MG PO Q6H PRN for NAUSEA/VOMITING Prescribed by: NIKHIL LANGLEY on 12/08/182256 Ondansetron 4 Mg Tab.rapdis, 4 MG PO Q4H PRN for NAUSEA/VOMITING Prescribed by: JOSE PERLA on 03/06/19 1151 Ondansetron 4 Mg Tab.rapdis, 4 MG PO Q6H PRN for NAUSEA/VOMITING Prescribed by: EMEKA MCCLURE on 05/07/19 190 Patient Home Medication List Home Medication List Reviewed: Yes (DANICA STEPHEN MD) Review of Systems Review of Systems Constitutional: no symptoms reported EENTM: No Symptoms Reported Respiratory: No Symptoms Reported Cardiovascular: No Symptoms Reported Gastrointestinal: Abdominal Pain; Denies Constipated; Nausea; Denies Rectal Bleeding, Denies Vomiting Genitourinary: Denies Discharge, Denies Hematuria; Pain Musculoskeletal: no symptoms reported Skin: no symptoms reported Psychiatric/Neurological: No Symptoms Reported Endocrine: No Symptoms Reported Hematologic/Lymphatic: No Symptoms Reported (RODRIGO,KEYUR MED STUDEN) Past Ughfsmp-Hnwvjo-Uvmqpc Hx Patient Social History Alcohol Use: Denies Use Smoking Status: Never a Smoker 2nd Hand Smoke Exposure: No Recent Hopitalizations: No (RODRIGO,KEYUR MED STUDEN) Immunizations Up To Date Tetanus Booster (TDap): Less than 5yrs PED Vaccines UTD: No (RODRIGO,KEYUR MED STUDEN) Past Medical History Surgeries: No (gastric sleeve) Section, Gallbladder Respiratory: No Cardiac: No Neurological: No Reproductive Disorders: No CARDROOM HAND History: IUD Genitourinary: No Gastrointestinal: No Musculoskeletal: No Endocrine: No HEENT: No Cancer: No Psychosocial: No Integumentary: No Blood Disorders: No (RODRIGO,KEYUR MED STUDEN) Family Medical History No Pertinent Family Hx Bariatric Surgery (RODRIGO,KEYUR MED STUDEN) Physical Exam Vital Signs Vital Signs - First Documented 06/01/20 16:23 Temp 36.5 Pulse 97 Resp 18 B/P (MAP) 124/81 (95) Pulse Ox 99 (JOSE CHRISTIAN MD) Vital Signs Capillary Refill : (RODRIGO,KEYUR MED STUDEN) Height/Weight/BMI Height: 5'4.00" Weight: 246lbs. oz. 111.576021xu; 44.00 BMI Method:Stated General Appearance: mild distress Neck: non-tender, full range of motion Respiratory: chest non-tender, no respiratory distress, no accessory muscle use Cardiovascular: normal peripheral pulses, no edema Peripheral Pulses: 2+ Dorsalis Pedis (R), 2+ Left Dors-Pedis (L), 2+ Radial Pulses (R), 2+ Radial Pulses (L) Gastrointestinal: rebound, tenderness (+ Rosving and McBurney sign ) Back: no CVA tenderness Neurologic/Psychiatric: alert, oriented x 3 Skin: normal color, warm/dry (KEYUR HAMMER) Progress/Results/Core Measures Results/Orders Lab Results Laboratory Tests Test 06/01/20 16:20 06/01/20 17:32 Range/Units White Blood Count 7.4 4.3-11.0 10^3/uL Red Blood Count 4.34 3.80-5.11 10^6/uL Hemoglobin 11.7 11.5-16.0 g/dL Hematocrit 37 35-52 % Mean Corpuscular Volume 85 80-99 fL Mean Corpuscular Hemoglobin 27 25-34 pg Mean Corpuscular Hemoglobin Concent 32 32-36 g/dL Red Cell Distribution Width 13.6 10.0-14.5 % Platelet Count 224 130-400 10^3/uL Mean Platelet Volume 11.7 9.0-12.2 fL Immature Granulocyte % (Auto) 0 % Neutrophils (%) (Auto) 53 42-75 % Lymphocytes (%) (Auto) 40 12-44 % Monocytes (%) (Auto) 6 0-12 % Eosinophils (%) (Auto) 0 0-10 % Basophils (%) (Auto) 0 0-10 % Neutrophils # (Auto) 3.9 1.8-7.8 10^3/uL Lymphocytes # (Auto) 3.0 1.0-4.0 10^3/uL Monocytes # (Auto) 0.4 0.0-1.0 10^3/uL Eosinophils # (Auto) 0.0 0.0-0.3 10^3/uL Basophils # (Auto) 0.0 0.0-0.1 10^3/uL Immature Granulocyte # (Auto) 0.0 0.0-0.1 10^3/uL Sodium Level 140 135-145 MMOL/L Potassium Level 4.1 3.6-5.0 MMOL/L Chloride Level 109 H 98-107 MMOL/L Carbon Dioxide Level 20 L 21-32 MMOL/L Anion Gap 11 5-14 MMOL/L Blood Urea Nitrogen 8 7-18 MG/DL Creatinine 0.67 0.60-1.30 MG/DL Estimat Glomerular Filtration Rate > 60 BUN/Creatinine Ratio 12 Glucose Level 96 70-105 MG/DL Calcium Level 8.4 L 8.5-10.1 MG/DL Corrected Calcium 8.6 8.5-10.1 MG/DL Total Bilirubin 0.3 0.1-1.0 MG/DL Aspartate Amino Transf (AST/SGOT) 13 5-34 U/L Alanine Aminotransferase (ALT/SGPT) 11 0-55 U/L Alkaline Phosphatase 59 40-136 U/L C-Reactive Protein High Sensitivity 0.04 0.00-0.50 MG/DL Total Protein 7.0 6.4-8.2 GM/DL Albumin 3.8 3.2-4.5 GM/DL Lipase 17 8-78 U/L Serum Test, Qualitative NEGATIVE NEGATIVE Urine Color YELLOW Urine Clarity CLEAR Urine pH 6.0 5-9 Urine Specific [place] 1.025 H 1.016-1.022 Urine Protein NEGATIVE NEGATIVE Urine Glucose (UA) NEGATIVE NEGATIVE Urine Ketones 1+ H NEGATIVE Urine Nitrite NEGATIVE NEGATIVE Urine Bilirubin NEGATIVE NEGATIVE Urine Urobilinogen 0.2 < = 1.0 MG/DL Urine Leukocyte Esterase NEGATIVE NEGATIVE Urine RBC (Auto) NEGATIVE NEGATIVE Urine RBC NONE /HPF Urine WBC 2-5 /HPF Urine Squamous Epithelial Cells 25-50 H /HPF Urine Crystals NONE /LPF Urine Bacteria LARGE H /HPF Urine Casts NONE /LPF Urine Mucus MODERATE H /LPF Urine Culture Indicated YES (JOSE CHRISTIAN MD) My Orders Orders - JOSE CHRISTIAN MD Fentanyl Injection (Sublimaze Injection (06/01/20 16:30) Ondansetron Injection (Zofran Injectio (06/01/20 16:30) Lactated Ringers (Lr 1000 Ml Iv Solution (06/01/20 16:30) Cbc With Automated Diff (06/01/20 16:29) Comprehensive Metabolic Panel (06/01/20 16:29) Hs C Reactive Protein (06/01/20 16:29) Lipase (06/01/20 16:29) Ua Culture If Indicated (06/01/20 16:29) Hcg,Qualitative Serum (06/01/20 16:29) Ed Iv/Invasive Line Start (06/01/20 16:29) Urine Culture (06/01/20 17:32) Ct Abd/Pelv W (Appendicitis) (06/01/20 17:58) Fentanyl Injection (Sublimaze Injection (06/01/20 18:00) Iohexol Injection (Omnipaque 350 Mg/Ml 1 (06/01/20 18:00) Received Contrast (Hold Metformin- Contr (06/01/20 18:00) Sodium Chloride Flush (Catheter Flush Sy (06/01/20 18:00) Ns (Ivpb) (Sodium Chloride 0.9% Ivpb Bag (06/01/20 18:00) (JOSE CHRISTIAN MD) Medications Given in ED Current Medications Medications Dose Ordered Sig/Catrachita Route Start Time Stop Time Status Last Admin Dose Admin Fentanyl Citrate 50 mcg ONCE ONCE IVP 06/01/20 16:30 06/01/20 16:32 DC 06/01/20 16:38 50 MCG Iohexol 100 ml ONCE ONCE IV 06/01/20 18:00 06/01/20 18:01 DC 06/01/20 18:15 100 ML Lactated Ringer's 1,000 ml @ 0 mls/hr Q0M ONCE IV 06/01/20 16:30 06/01/20 16:32 DC 06/01/20 16:37 0 MLS/HR Ondansetron HCl 8 mg ONCE ONCE IVP 06/01/20 16:30 06/01/20 16:32 DC 06/01/20 16:37 8 MG Sodium Chloride 10 ml NEEDED PRN IV 06/01/20 18:00 06/01/20 18:15 10 ML Sodium Chloride 100 ml ONCE ONCE IV 06/01/20 18:00 06/01/20 18:01 DC 06/01/20 18:15 100 ML (JOSE CHRISTIAN MD) Vital Signs/I&O 06/01/20 16:23 Temp 36.5 Pulse 97 Resp 18 B/P (MAP) 124/81 (95) Pulse Ox 99 (JOSE CHRISTIAN MD) Progress Progress Note : Time: 16:40 Progress Note + Rosving, McBurney and Rebound tenderness upon palpation, ordered CBC, CMP, B- HCG, UA, Lipase. Fentnyl for Pain, Zofran for Nausea and start LR. Discussed plan with patient. Will evaluate labs and consider additional test if needed. (KEYUR HAMMER [facility]) Progress Note : Progress Note 1900: I did assume care of the patient from Dr. Oliver at [address] scan. Labs and work-up reviewed with him at that point. CT is complete now and shows no acute findings for appendicitis or other significant pathology. There is a small right ovarian cyst with likely pathological free fluid. Patient still complains of pain but there is no significant work-up findings. We did discuss options. At this point she is not in need of a surgical referral I have asked her to return for recheck in 12 to 24 hours if pain continues or worsens. We will send home for hydrocodone 5/325 tablets that she can take 1 every 6 hour s for the pain and she has also been instructed to follow-up with her doctor. Of note, patient did report to me that she had yeast infection that she treated a few days ago and thought it was clear but is wondering if maybe that is coming back. She denies current discharge. UA does not show yeast but is contaminated with culture pending. Bacterial vaginosis could also be in the differential and we will await the culture that is pending. Discharged home with return precautions. Patient verbalized understanding of instructions and agreement with plan. (DANICA STEPHEN MD) Diagnostic Imaging Diagonstic Imaging: CT Plain Films/CT/US/NM/MRI: abdomen, pelvis Comments [facility], [place] NAME: [facility] REC#: [id number] PT STATUS: REG ER : 1995 PHYSICIAN: JOSE CHRISTIAN MD ADMIT DATE: 06/01/20/ER Draft Date of Exam:06/01/20 CT ABD/PELV W (APPENDICITIS) CLINICAL INDICATION: Patient with right lower quadrant pain since last night with nausea. Patient has past surgical history of gallbladder resection, and gastric sleeve. EXAM: Axial CT scan of the abdomen and pelvis performed with 100 mL of Omnipaque 350 IV contrast. Sagittal and coronal reformatted images were created. Auto Exposure Controls were utilized during the CT exam to meet ALARA standards for radiation dose reduction. COMPARISON: CT scan of the abdomen and pelvis with contrast dated 05/07/2019. FINDINGS: Visualized lung bases are clear. There is mild lower lumbar spine facet arthropathy. The gallbladder is surgically resected, as noted on the prior study as well. The liver, spleen, pancreas and adrenal glands are unremarkable. Both kidneys are unremarkable. No hydronephrosis, mass or stone. Bladder is partially fluid-filled and grossly unremarkable. IUD is seen within the uterus. The uterus and adnexal structures show no significant abnormality. There is a roughly 1.7 cm cyst in the right ovary. There is minimal free fluid in the pelvis, likely physiologic. Postop change to the stomach seen consistent with gastric sleeve which has similar appearance to the prior study. Otherwise, there is no significant intra-abdominal free fluid or free air. There is no evidence of intestinal obstruction. There is no lymphadenopathy. The appendix is unremarkable. There is no pericecal fat stranding or fluid seen. Extra-abdominal and extra-pelvis soft tissue structures are unremarkable. IMPRESSION: 1: There is no evidence of acute abdominal or pelvic process. The appendix is unremarkable. 2: Stable postop changes to the abdomen, as described above. 3: There is a 1.7 cm cyst involving the right ovary. There is minimal free fluid in the pelvis which may be physiologic. Dictated on workstation # [id number] Dict: 06/01/20 1825 Trans: 06/01/20 1836 [facility] [id number] Interpreted by: KALLI SPARKS MD Electronically signed by: (DANICA STEPHEN MD) Departure Impression Primary Impression: Right lower quadrant abdominal pain Disposition: 01 HOME, SELF-CARE Condition: Stable Departure-Patient Inst. Decision time for Depature: 19:06 (DANICA STEPHEN MD) Referrals: [facility] (PCP) Primary Care Physician LANA JASMINE (Family) Primary Care Physician Patient Instructions: Severe Abdominal Pain, Adult (DC) Add. Discharge Instructions: All discharge instructions reviewed with patient and/or family. Voiced understanding. You may take the pain medicine as prescribed. If you are not taking the pain medicine that was given to you, you may take Tylenol/acetaminophen per package directions. Do not take both at the same time as they both have acetaminophen in them. Clear fluids or light diet for the next 24 hours and then advance as tolerated. Return in 12 to 24 hours if not improving. Return for worse pain, fever, vomiting, weakness, breathing problems or other concerns as needed. Medical Student Attestation and Attending Note: I have personally interviewed and examined this patient along with Keyur Hammer, MS 4. I have reviewed student documentation including history, physical, and assessments. I agree with the documentation except where otherwise noted. After evaluation of labs and treatment with fentanyl, Zofran, and fluids, I discussed further evaluation with the patient. We discussed lack of availability of ultrasound at this time as well as the possibility of CT scan. We discussed risks and benefits of CT and patient would like to proceed with CT imaging. Care of this patient was transitioned to Dr. Stephen at 18:23. Exam: General: Alert, oriented, mild distress, tearful, well developed HEENT: Normocephalic and atraumatic Heart: Regular rate and rhythm without murmur Lungs: Clear to auscultation bilaterally with normal effort Abdomen: Soft, tenderness across the lower abdomen with positive Rovsing sign and rebound, right greater than left, nondistended, normal bowel sounds Neuropsych: Alert, oriented, no focal deficits Skin: Warm and dry without rashes (JOSE CHRISTIAN MD) KEYUR HAMMER [facility] Jun 01, 2020 16:38 JOSE CHRISTIAN MD Jun 01, 2020 18:23 DANICA STEPHEN MD Jun 01, 2020 19:06
[2020-06-01 16:41] LABS: ALBUMIN 3.8 GM/DL (3.2-4.5)
[2020-06-01 16:42] LABS: CHLORIDE 109 MMOL/L (98-107); POTASSIUM 4.1 MMOL/L (3.6-5.0); SODIUM 140 MMOL/L (135-145)
[2020-06-01 16:43] LABS: CALCIUM 8.4 MG/DL (8.5-10.1)
[2020-06-01 16:44] LABS: GLUCOSE 96 MG/DL (70-105)
[2020-06-01 16:45] LABS: CARBON DIOXIDE 20 MMOL/L (21-32)
[2020-06-01 16:46] LABS: BILIRUBIN,TOTAL 0.3 MG/DL (0.1-1.0)
[2020-06-01 16:47] LABS: ALKALINE PHOSPHATASE 59 U/L (40-136)
[2020-06-01 16:48] LABS: CREATININE SERUM 0.67 MG/DL (0.60-1.30); GFR ESTIMATED > 60
[2020-06-01 16:49] LABS: BUN/CREATININE RATIO 12
[2020-06-01 16:51] LABS: ALANINE AMINOTRANSFERASE 11 U/L (0-55); LIPASE 17 U/L (8-78)
[2020-06-01 17:37] LABS: BILIRUBIN,URINE NEGATIVE (NEGATIVE); CLARITY,URINE CLEAR; COLOR,URINE YELLOW; GLUCOSE, URINE (UA) NEGATIVE (NEGATIVE); KETONES,URINE 1+ (NEGATIVE); LEUKOCYTE ESTERASE ,URINE NEGATIVE (NEGATIVE); NITRITE,URINE NEGATIVE (NEGATIVE); PROTEIN,URINE NEGATIVE (NEGATIVE)
[2020-06-01 17:45] LABS: BACTERIA,URINE LARGE /HPF; SQUAMOUS EPITHELIAL CELL,UR 25-50 /HPF
[2020-06-01] MEDS ORDERED: IOHEXOL 350 MG/ML 100 ML (OMNIPAQUE 350) VIAL IV ONE (18:00)
[2020-06-01] MEDS ORDERED: NS 100 ML (IVPB) BAG IV ONE (18:00)
[2020-06-01] MEDS ORDERED: CATHETER FLUSH 10 ML SYR IV PRN (18:00)
[2020-06-01] MEDS ORDERED: HOLD METFORMIN - RECEIVED CONTRAST 20 ML VIAL IV SCH (18:00)
--- NOTE | 2020-06-01 18:38 | Diagnostic Imaging Report ---
CLINICAL INDICATION: Patient with right lower quadrant pain since last night with nausea. Patient has past surgical history of gallbladder resection, and gastric sleeve. EXAM: Axial CT scan of the abdomen and pelvis performed with 100 mL of Omnipaque 350 IV contrast. Sagittal and coronal reformatted images were created. Auto Exposure Controls were utilized during the CT exam to meet ALARA standards for radiation dose reduction. COMPARISON: CT scan of the abdomen and pelvis with contrast dated 05/07/2019. FINDINGS: Visualized lung bases are clear. There is mild lower lumbar spine facet arthropathy. The gallbladder is surgically resected, as noted on the prior study as well. The liver, spleen, pancreas and adrenal glands are unremarkable. Both kidneys are unremarkable. No hydronephrosis, mass or stone. Bladder is partially fluid-filled and grossly unremarkable. IUD is seen within the uterus. The uterus and adnexal structures show no significant abnormality. There is a roughly 1.7 cm cyst in the right ovary. There is minimal free fluid in the pelvis, likely physiologic. Postop change to the stomach seen consistent with gastric sleeve which has similar appearance to the prior study. Otherwise, there is no significant intra-abdominal free fluid or free air. There is no evidence of intestinal obstruction. There is no lymphadenopathy. The appendix is unremarkable. There is no pericecal fat stranding or fluid seen. Extra-abdominal and extra-pelvis soft tissue structures are unremarkable. IMPRESSION: 1: There is no evidence of acute abdominal or pelvic process. The appendix is unremarkable. 2: Stable postop changes to the abdomen, as described above. 3: There is a 1.7 cm cyst involving the right ovary. There is minimal free fluid in the pelvis which may be physiologic. Dictated by: Dictated on workstation # [id number]
[2020-06-01] MEDS ORDERED: RX-HYDROCODONE/APAP 5/325 MG #4 TAB PK PO PRN (19:15)
[2020-06-01 19:19] VITALS: BP 132/77
== END 2020-06-01 19:19 | disposition home or self-care (01) ==
LOC: EDUNIT# 16:05 → ER 16:06
DX: R10.31 Right lower quadrant pain (principal); R10.32 Left lower quadrant pain; Z88.0 Allergy status to penicillin
CPT/HCPCS: 36415; 74177; 80053; 81000; 83690; 84703; 85025; 86141; 87088

== ENCOUNTER 2020-06-03 09:24 | Emergency (ER) | payer MEDICAID ==
[~2020-06-03] VITALS: Ht 162 cm; Wt 122.0 kg
[2020-06-03 10:47] LABS: BASOPHILS % (AUTO) 0 % (0-10); BILIRUBIN,URINE NEGATIVE (NEGATIVE); CLARITY,URINE CLEAR; COLOR,URINE YELLOW; EOSINOPHILS % (AUTO) 0 % (0-10); GLUCOSE, URINE (UA) NEGATIVE (NEGATIVE); HEMATOCRIT 37 % (35-52); HEMOGLOBIN 11.7 g/dL (11.5-16.0); KETONES,URINE NEGATIVE (NEGATIVE); LEUKOCYTE ESTERASE ,URINE NEGATIVE (NEGATIVE); LYMPHOCYTES # (AUTO) 1.8 10^3/uL (1.0-4.0); LYMPHOCYTES % (AUTO) 31 % (12-44); MEAN CORPUSCULAR HEMOGLOBIN 27 pg (25-34); MEAN CORPUSCULAR HGB CONC 32 g/dL (32-36); MEAN CORPUSCULAR VOLUME 86 fL (80-99); MEAN PLATELET VOLUME 11.7 fL (9.0-12.2); MONOCYTES # (AUTO) 0.5 10^3/uL (0.0-1.0); MONOCYTES % (AUTO) 9 % (0-12); NEUTROPHILS # (AUTO) 3.4 10^3/uL (1.8-7.8); NEUTROPHILS % (AUTO) 60 % (42-75); NITRITE,URINE NEGATIVE (NEGATIVE); PLATELET COUNT 239 10^3/uL (130-400); PROTEIN,URINE NEGATIVE (NEGATIVE); WHITE BLOOD COUNT 5.7 10^3/uL (4.3-11.0)
[2020-06-03 10:48] LABS: ALBUMIN 3.7 GM/DL (3.2-4.5); CHLORIDE 108 MMOL/L (98-107); SODIUM 139 MMOL/L (135-145)
[2020-06-03 10:50] LABS: CALCIUM 8.7 MG/DL (8.5-10.1)
[2020-06-03 10:51] LABS: GLUCOSE 73 MG/DL (70-105); TOTAL PROTEIN 6.9 GM/DL (6.4-8.2)
[2020-06-03 10:52] LABS: BILIRUBIN,TOTAL 0.4 MG/DL (0.1-1.0); CARBON DIOXIDE 22 MMOL/L (21-32)
--- NOTE | 2020-06-03 10:52 | ED Abdominal Pain ---
General Chief Complaint: Abdominal/GI Problems Stated Complaint: PELVIC PAIN Nursing Triage Note: PT AMB TO ROOM 8 PT CO OF ABD CONTINUED FROM VISIT ON TUESDAY. PT CO OF PAIN 8/10 ON R LOWER ABD AREA. PT CO OF SOME NAUSEA AT TIMES. PT STATES WAS SEXUALLY ACTIVE LAST WEEK AND HAS IUD Sepsis Screen: No Definite Risk Source of Information: Patient Exam Limitations: No Limitations (KEYUR HAMMER) History of Present Illness Date Seen by Provider: Jun 03, 2020 Time Seen by Provider: 10:40 Initial Comments Evonne is a 24 y/o female that presents to the ER with three days of lower abdominal pain that is R>L. She was seen in the ER on 06/01 for the same presentation and was found to have a right ovarian cyst measuring 1.7 cm, appendix and other GI pathology were unremarkable. All labs were unremarkable at the time. she states " I was instructed to come back if I felt the pain was getting worse". Today she states the bloating in her lower abdomen is getting worse. The pain woke her up today at 5am. She then took the hydrocodone prescribed and it only helped a little. Additionally, she continues to have nausea. She states " I am starting to have vaginal discharge and it has an odor and is white in color, I may have PID". She has one sexual partner, but she does not know his past sexual hx. She has a hx of a yeast infection. Last bowel movement was Tuesday. Denies the following: F/C, Vomiting, blood in stool, dysuria, SOB and chest pain at this time. She is + for vaginal discharge, the feeling of incomplete emptying of urine, nausea. She is on her third day of Macrobid for UTI and denies taking it today. Note from ER visit on 06/01/2020: Evonne is a 24 y/o female that presents to the ER with 8/10 abdominal pain that started yesterday afternoon. She presented to [facility] yesterday and began treatment for UTI. She states the pain continued to get worse overnight and is located in the RLQ>LLQ. She does not know of any exacerbating events. Nothing makes it better. She has associated Nausea and Fever at home of 101. She denies vomiting, SOB,Chest pain and constipation at this time. She has an IUD which was placed in 2017 and denies risky sexual behavior. On exam the patient had a positive rosving sign and + mcburney in addition to rebound tenderness on exam. LMP was one to two months ago, she states it is not regular in timing. Timing/Duration: 1/2 Hour Severity/Quality: Mild, Moderate Location: RLQ, LLQ Radiation: No Radiation Activities at Onset: None Modifying Factors: Worsens With Movement, Worsens With Palpation Associated Symptoms: Nausea/Vomiting (without vomiting) (KEYUR HAMMER) Allergies and Home Medications Allergies Coded Allergies: Penicillins (Verified Allergy, Unknown, 12/08/18) pt states she is not sure if she has ever had a reaction, but states her mom is allergic to penicillin so she was told to list it as an allergy Home Medications Alprazolam 0.25 Mg Tablet, 0.25 MG PO BID PRN for ANXIETY Prescribed by: TEMITOPE DUENAS on 07/02/19 2200 Doxycycline Hyclate 100 Mg Tablet, 100 MG PO BID Prescribed by: JOSE REYES on 06/03/20 1428 Hyoscyamine Sulfate 0.125 Mg Tab.subl, 0.125 MG SL Q4H PRN for SPASMS Prescribed by: NIKHIL LANGLEY on 12/08/18 225 Ondansetron 8 Mg Tab.rapdis, 8 MG PO Q6H PRN for NAUSEA/VOMITING Prescribed by: NIKHIL LANGLEY on 12/08/18 225 Ondansetron 4 Mg Tab.rapdis, 4 MG PO Q4H PRN for NAUSEA/VOMITING Prescribed by: JOSE REYES on 03/06/19 1151 Ondansetron 4 Mg Tab.rapdis, 4 MG PO Q6H PRN for NAUSEA/VOMITING Prescribed by: EMEKA MCCLURE on 05/07/19 1901 Patient Home Medication List Home Medication List Reviewed: Yes (JOSE CHRISTIAN MD) Review of Systems Review of Systems Constitutional: no symptoms reported EENTM: No Symptoms Reported Respiratory: No Symptoms Reported Cardiovascular: No Symptoms Reported Gastrointestinal: Abdomen Distended, Nausea; Denies Rectal Bleeding Genitourinary: Denies Burning; Discharge (white vaginal discharge. Seen a tracae amount of blood once); Denies Hematuria, Denies Urgency Musculoskeletal: no symptoms reported Skin: no symptoms reported Psychiatric/Neurological: No Symptoms Reported Endocrine: No Symptoms Reported Hematologic/Lymphatic: No Symptoms Reported (RODRIGO,KEYUR MED STUDEN) Past Ladjwkt-Zaxeix-Xmqdta Hx Past Med/Social Hx: Reviewed Nursing Past Med/Soc Hx (JOSE CHRISTIAN MD) Patient Social History Alcohol Use: Denies Use Smoking Status: Never a Smoker 2nd Hand Smoke Exposure: No Recent Infectious Disease Expo: No Recent Hopitalizations: No (RODRIGOKEYUR MED STUDEN) Immunizations Up To Date Tetanus Booster (TDap): Less than 5yrs PED Vaccines UTD: No (RODRIGO,KEYUR MED STUDEN) Past Medical History Surgeries: No (gastric sleeve) Section, Gallbladder Respiratory: No Cardiac: No Neurological: No : No (IUD) 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 oz. 111.793546bu; 46.00 BMI Method:Stated General Appearance: no apparent distress HEENT: PERRL/EOMI Neck: non-tender, full range of motion Respiratory: chest non-tender, lungs clear, normal breath sounds, no respiratory distress, no accessory muscle use Cardiovascular: normal peripheral pulses, regular rate, rhythm, no edema Peripheral Pulses: 2+ Dorsalis Pedis (R), 2+ Left Dors-Pedis (L), 2+ Radial Pulses (R), 2+ Radial Pulses (L) Gastrointestinal: tenderness (RLQ>LLQ) Genital/Rectal: other (patient with like a pelvic exam ) Extremities: no pedal edema, no calf tenderness Back: no CVA tenderness, no vertebral tenderness Neurologic/Psychiatric: alert, normal mood/affect, oriented x 3 Skin: normal color, warm/dry Lymphatic: no adenopathy (KEYUR HAMMER) Progress/Results/Core Measures Results/Orders Lab Results Laboratory Tests Test 06/03/20 09:54 06/03/20 12:40 Range/Units White Blood Count 5.7 4.3-11.0 10^3/uL Red Blood Count 4.33 3.80-5.11 10^6/uL Hemoglobin 11.7 11.5-16.0 g/dL Hematocrit 37 35-52 % Mean Corpuscular Volume 86 80-99 fL Mean Corpuscular Hemoglobin 27 25-34 pg Mean Corpuscular Hemoglobin Concent 32 32-36 g/dL Red Cell Distribution Width 13.6 10.0-14.5 % Platelet Count 239 130-400 10^3/uL Mean Platelet Volume 11.7 9.0-12.2 fL Immature Granulocyte % (Auto) 0 % Neutrophils (%) (Auto) 60 42-75 % Lymphocytes (%) (Auto) 31 12-44 % Monocytes (%) (Auto) 9 0-12 % Eosinophils (%) (Auto) 0 0-10 % Basophils (%) (Auto) 0 0-10 % Neutrophils # (Auto) 3.4 1.8-7.8 10^3/uL Lymphocytes # (Auto) 1.8 1.0-4.0 10^3/uL Monocytes # (Auto) 0.5 0.0-1.0 10^3/uL Eosinophils # (Auto) 0.0 0.0-0.3 10^3/uL Basophils # (Auto) 0.0 0.0-0.1 10^3/uL Immature Granulocyte # (Auto) 0.0 0.0-0.1 10^3/uL Urine Color YELLOW Urine Clarity CLEAR Urine pH 7.0 5-9 Urine Specific [place] 1.020 1.016-1.022 Urine Protein NEGATIVE NEGATIVE Urine Glucose (UA) NEGATIVE NEGATIVE Urine Ketones NEGATIVE NEGATIVE Urine Nitrite NEGATIVE NEGATIVE Urine Bilirubin NEGATIVE NEGATIVE Urine Urobilinogen 0.2 < = 1.0 MG/DL Urine Leukocyte Esterase NEGATIVE NEGATIVE Urine RBC (Auto) NEGATIVE NEGATIVE Urine RBC NONE /HPF Urine WBC 0-2 /HPF Urine Squamous Epithelial Cells 10-25 H /HPF Urine Crystals NONE /LPF Urine Bacteria TRACE /HPF Urine Casts NONE /LPF Urine Mucus NEGATIVE /LPF Urine Culture Indicated NO Sodium Level 139 135-145 MMOL/L Potassium Level 4.0 3.6-5.0 MMOL/L Chloride Level 108 H 98-107 MMOL/L Carbon Dioxide Level 22 21-32 MMOL/L Anion Gap 9 5-14 MMOL/L Blood Urea Nitrogen 7 7-18 MG/DL Creatinine 0.71 0.60-1.30 MG/DL Estimat Glomerular Filtration Rate > 60 BUN/Creatinine Ratio 10 Glucose Level 73 70-105 MG/DL Calcium Level 8.7 8.5-10.1 MG/DL Corrected Calcium 8.9 8.5-10.1 MG/DL Total Bilirubin 0.4 0.1-1.0 MG/DL Aspartate Amino Transf (AST/SGOT) 14 5-34 U/L Alanine Aminotransferase (ALT/SGPT) 11 0-55 U/L Alkaline Phosphatase 57 40-136 U/L C-Reactive Protein High Sensitivity 0.03 0.00-0.50 MG/DL Total Protein 6.9 6.4-8.2 GM/DL Albumin 3.7 3.2-4.5 GM/DL (JOSE CHRISTIAN MD) Micro Results Microbiology 06/03/20 Genital Culture - Preliminary, Resulted 06/03/20 Wet Prep, Resulted Pending (JOSE CHRISTIAN MD) My Orders Orders - JOSE CHRISTIAN MD Cbc With Automated Diff (06/03/20 10:41) Comprehensive Metabolic Panel (06/03/20 10:41) Hs C Reactive Protein (06/03/20 10:41) Ua Culture If Indicated (06/03/20 10:41) Ed Iv/Invasive Line Start (06/03/20 10:41) Wet Prep (06/03/20 12:09) Neisseria Gonorrhea Swab (06/03/20 12:09) Genital Culture (06/03/20 12:09) Chlamydia Trachomatis Swab (06/03/20 12:09) Ketorolac Injection (Toradol Injection) (06/03/20 12:58) Ceftriaxone For Iv Use (Rocephin For I (06/03/20 14:15) Azithromycin Tablet (Zithromax Tablet) (06/03/20 14:15) Ketorolac Injection (Toradol Injection) (06/03/20 14:30) (JOSE CHRISTIAN MD) Medications Given in ED Current Medications Medications Dose Ordered Sig/Catrachita Route Start Time Stop Time Status Last Admin Dose Admin Azithromycin 1,000 mg ONCE ONCE PO 06/03/20 14:15 06/03/20 14:16 DC 06/03/20 14:26 1,000 MG Ceftriaxone Sodium 1000 mg/ Sterile Water 10 ml @ 200 mls/hr ONCE ONCE IV 06/03/20 14:15 06/03/20 14:17 DC 06/03/20 14:26 200 MLS/HR Ketorolac Tromethamine 30 mg STK-MED ONCE .ROUTE 06/03/20 12:58 06/03/20 13:03 DC 06/03/20 13:07 30 MG (JOSE CHRISTIAN MD) Vital Signs/I&O 06/03/20 06/03/20 09:45 15:04 Temp 36.3 Pulse 92 72 Resp 20 20 B/P (MAP) 129/79 (96) 122/68 (96) Pulse Ox 100 100 (JOSE CHRISTIAN MD) Blood Pressure Mean: 96 Progress Progress Note #1: Time: 10:40 Progress Note Patient would like a pelvic exam, she is concerned about PID. Told her we will most likely need to get labs on her again. She continues to bring up getting an ultrasound, but explained to her we got a CT with contrast on her a couple of days ago. Will discuss finding with Dr. Reyes and evaluate for further workup. Progress Note #2: Time: 12:53 Progress Note CBC with Diff, CMP and UA are all unremarkable. Explained the risk, benefits and alternative of performing a Pelvic exam. The patient understood and agreed to have pelvic exam performed. Nurse Robyn MATHEW was present for exam.On exam the patient had no abrasions, ulcers or growths of the exterior genitalia. Dried white discharge was noted on and between the labia majora and minora. When entering introitus the patient felt pain and on exam the vaginal side wall was inflamed and erythematous. White milky discharge was noted throughout the vaginal vault. Cervix was swabbed with cotton tip applicator for culture collection, while sweeping over cervix tenderness was noted along with erythema. Post exam patient was given toradol for pain. Will wait for results to dictate additional workup. (KEYUR HAMMER) Departure Impression Primary Impression: Pelvic pain Additional Impression: Cervicitis Disposition: 01 HOME, SELF-CARE Condition: Improved Departure-Patient Inst. Decision time for Depature: 14:24 (JOSE CHRISTIAN MD) Referrals: [facility] [place] (PCP) Primary Care Physician LANA JASMINE (Family) Primary Care Physician MITCHELL LEE DO Patient Instructions: Pelvic Pain Add. Discharge Instructions: The results of your cultures should be available by the end of this week or early next week. Please make a follow-up appointment for early next week with Dr. Lee or the women's health provider of your choice. In the meantime, you m ay take Tylenol (acetaminophen) up to 1000 mg every 6 hours as needed and/or ibuprofen up to 600 mg every 6 hours as needed. Avoid any sexual activity or anything inserted in the vagina including intercourse until you review the results of your cultures with a doctor. In addition to antibiotics provided in the emergency room, take doxycycline as prescribed and finish the Macrobid (nitrofurantoin) previously prescribed. Call with questions or concerns, and return to the emergency room if you have worsening symptoms. All discharge instructions reviewed with patient and/or family. Voiced understanding. Scripts Doxycycline Hyclate (Doxycycline Hyclate) 100 Mg Tablet 100 MG PO BID, #20 TAB 0 Refills Prov: JOSE CHRISTIAN MD 06/03/20 Medical Student Attestation and Attending Note: I have personally interviewed and examined this patient along with Keyur Hammer, MS 4. I have reviewed student documentation including history, physical, and assessments. I agree with the documentation except where otherwise noted. Patient had a thorough work-up on June [address] scan. No surgical pathology was identified. Patient has had persistent symptoms of pain since that time. She is now concerned about sexually transmitted infection and PID. Pelvic exam was performed. She had vaginal and cervical motion tenderness with purulent appearing discharge. She was empirically treated with Rocephin and azithromycin and prescribed doxycycline. See discharge instructions for further discussion. Exam: General: Alert, oriented, no acute distress, well developed HEENT: Normocephalic and atraumatic Heart: Regular rate and rhythm without murmur Lungs: Clear to auscultation bilaterally with normal effort Abdomen: Soft, Tender in the lower quadrants, right greater than left with positive tenderness to percussion. Positive rebound and Rovsing's., nondistended, normal bowel sounds Pelvic: Normal external genitalia. Speculum with inflammation noted on the vaginal sidewalls. Positive cervical motion tenderness. Purulent discharge in the vagina and cervical os. Neuropsych: Alert, oriented, no focal deficits Skin: Warm and dry without rashes (JOSE CHRISTIAN MD) Copy Copies To 1: VALENTIN TSE DO Copies To 2: [facility] Jun 03, 2020 10:52 JOSE CHRISTIAN MD Jun 03, 2020 14:28
[2020-06-03 10:53] LABS: BACTERIA,URINE TRACE /HPF; WBC,URINE 0-2 /HPF
[2020-06-03 10:54] LABS: ALKALINE PHOSPHATASE 57 U/L (40-136)
[2020-06-03 10:55] LABS: CREATININE SERUM 0.71 MG/DL (0.60-1.30); GFR ESTIMATED > 60
[2020-06-03 10:56] LABS: BUN/CREATININE RATIO 10
[2020-06-03 10:57] LABS: ALANINE AMINOTRANSFERASE 11 U/L (0-55)
[2020-06-03] MEDS ORDERED: KETOROLAC 30 MG/ML VIAL ONE (12:58)
[2020-06-03] MEDS ORDERED: AZITHROMYCIN 250 MG TAB (ZITHROMAX) PO ONE (14:15)
[2020-06-03] MEDS ORDERED: cefTRIAXone FOR IV USE 1,000 MG in WATER (STERILE) FOR INJECTION 10 ML IV ONE (14:15)
[2020-06-03] MEDS ORDERED: DOXY100T2 PO (14:28)
[2020-06-03] MEDS ORDERED: KETOROLAC 30 MG/ML VIAL IVP ONE (14:30)
[2020-06-03 15:04] VITALS: BP 122/68
== END 2020-06-03 15:04 | disposition home or self-care (01) ==
LOC: EDUNIT# 09:24 → ER 09:25
DX: N72 Inflammatory disease of cervix uteri (principal); Z88.0 Allergy status to penicillin
CPT/HCPCS: 36415; 80053; 81000; 85025; 86141; 87070; 87205; 87210; 87491; 87591

== ENCOUNTER → 2020-10-07 | Outpatient (CLI) | payer BC, MEDICAID ==
[~2020-10-07] MED LIST changes: +DOXY100T2 PO; +RT-ALBUTEROL SULF 2.5 MG/3 ML PRE-MIX VIAL IH ONE; +RT-ALBUTEROL SULF 2.5 MG/3 ML PRE-MIX VIAL INH ONE
== END ==
LOC: RT 16:53
PROVIDERS: ATTEND Nurse Practitioner Family
DX: J45.909 Unspecified asthma, uncomplicated (principal)
CPT/HCPCS: 94060; 94726; 94729

== ENCOUNTER 2020-10-10 20:37 | Outpatient (CLI) | payer BC, MEDICAID ==
[~2020-10-10 20:37] MED LIST changes: -RT-ALBUTEROL SULF 2.5 MG/3 ML PRE-MIX VIAL IH ONE; -RT-ALBUTEROL SULF 2.5 MG/3 ML PRE-MIX VIAL INH ONE
== END 2020-10-11 07:01 | disposition home or self-care (01) ==
LOC: SLEEP 20:37
PROVIDERS: ATTEND Internal Medicine Critical Care Medicine
DX: G47.33 Obstructive sleep apnea (adult) (pediatric) (principal)
CPT/HCPCS: 95810

== ENCOUNTER 2020-12-28 19:32 | Emergency (ER) | payer BC, MEDICAID ==
[2020-12-28] MEDS ORDERED: IBUPROFEN 600 MG (MOTRIN) TAB PO ONE (20:00)
[2020-12-28] MEDS ORDERED: ONDANSETRON 4 MG (ZOFRAN) ORAL DISSOLVE TAB PO ONE (20:00)
--- NOTE | 2020-12-28 20:00 | ED General ---
General Chief Complaint: Abdominal/GI Problems Stated Complaint: POSS /BACK PAIN/NAUSEA/UTERUS PAIN Source of Information: Patient Exam Limitations: No Limitations History of Present Illness Date Seen by Provider: Dec 28, 2020 Time Seen by Provider: 19:47 Initial Comments Patient is a 25-year-old female who presents to the emergency department today with a chief complaint of low back pain, lower abdominal discomfort, nausea. Patient states that she took a urine test earlier today and it showed faintly positive. She states these are the same symptoms that she had with a prior miscarriage in the past. Patient believes her last menstrual cycle was about a month and a half ago but she does have an IUD and states that her periods are irregular. Patient denies any fevers chills, shortness of breath cough or congestion. She is Covid vaccinated. She denies diarrhea. She denies dysuria, urgency or frequency. Denies abnormal vaginal discharge. States all the symptoms have occurred just this morning since she woke up worsening in the last couple of hours. She has not taken any medications for her symptoms. Denies any trauma to her back. All other review of systems reviewed and negative except as stated. Timing/Duration: 12-24 Hours Severity: Moderate Associated Systoms: Nausea/Vomiting Allergies and Home Medications Allergies Coded Allergies: Penicillins (Verified Allergy, Unknown, 12/08/18) pt states she is not sure if she has ever had a reaction, but states her mom is allergic to penicillin so she was told to list it as an allergy Patient Home Medication List Home Medication List Reviewed: Yes Alprazolam (Xanax) 0.25 Mg Tablet, 0.25 MG PO BID PRN for ANXIETY Prescribed by: TEMITOPE DUENAS on 07/02/192199 Doxycycline Hyclate (Doxycycline Hyclate) 100 Mg Tablet, 100 MG PO BID Prescribed by: JOSE PERLA on 06/03/20 1428 Hyoscyamine Sulfate (Levsin-Sl) 0.125 Mg Tab.subl, 0.125 MG SL Q4H PRN for SPASMS Prescribed by: NIKHIL LANGLEY on 12/08/18 2257 Naproxen (Naproxen) 500 Mg Tablet, (Reported) Entered as Reported by: BRANDEE ALCANTARA on 03/06/19 0914 Ondansetron (Ondansetron Odt) 8 Mg Tab.rapdis, 8 MG PO Q6H PRN for NAUSEA/VOMITING Prescribed by: NIKHIL LANGLEY on 12/08/18 2257 Ondansetron (Ondansetron Odt) 4 Mg Tab.rapdis, 4 MG PO Q4H PRN for NAUSEA/VOMITING Prescribed by: JOSE PERLA on 03/06/19 1151 Ondansetron (Ondansetron Odt) 4 Mg Tab.rapdis, 4 MG PO Q6H PRN for NAUSEA/VOMITING Prescribed by: EMEKA MCCLURE on 05/07/19 1901 Prednisone (Prednisone) 20 Mg Tab, (Reported) Entered as Reported by: BRANDEE ALCANTARA on 03/06/19 0914 Review of Systems Review of Systems Constitutional: see HPI EENTM: no symptoms reported Respiratory: no symptoms reported Cardiovascular: no symptoms reported Gastrointestinal: nausea, other (pelvic pain/cramping) Genitourinary: no symptoms reported Musculoskeletal: back pain, muscle cramps (bilateral legs) Skin: no symptoms reported All Other Systems Reviewed Negative Unless Noted: Yes Past Onjeydt-Nhjmqm-Xhagft Hx Immunizations Up To Date Tetanus Booster (TDap): Less than 5yrs PED Vaccines UTD: No Past Medical History Surgeries: No (gastric sleeve) Section, Gallbladder Respiratory: No Cardiac: No Neurological: No 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 oz. 111.653937hk; 46.00 BMI Method:Stated General Appearance: No Apparent Distress, WD/WN Respiratory: Lungs Clear, Normal Breath Sounds, No Accessory Muscle Use, No Respiratory Distress Cardiovascular: Regular Rate, Rhythm Gastrointestinal: Non Tender, Soft Back: CVA Tenderness (L), CVA Tenderness (R) Extremity: Normal Inspection, Normal Range of Motion, Non Tender, No Calf Tenderness, No Pedal Edema, Other (negative straight leg raise bilaterally; 5/5 stregth bilateral LE's. 2+ patellar DTR's bilataerally) Skin: Normal Color, Warm/Dry Progress/Results/Core Measures Suspected Sepsis SIRS Temperature: Pulse: Respiratory Rate: Blood Pressure / Mean: Results/Orders Lab Results Laboratory Tests Test 12/28/20 19:43 12/28/20 20:20 Range/Units Urine Color YELLOW Urine Clarity CLEAR Urine pH 6.0 5-9 Urine Specific [place] 1.010 L 1.016-1.022 Urine Protein NEGATIVE NEGATIVE Urine Glucose (UA) NEGATIVE NEGATIVE Urine Ketones NEGATIVE NEGATIVE Urine Nitrite NEGATIVE NEGATIVE Urine Bilirubin NEGATIVE NEGATIVE Urine Urobilinogen 0.2 < = 1.0 MG/DL Urine Leukocyte Esterase NEGATIVE NEGATIVE Urine RBC (Auto) 3+ H NEGATIVE Urine RBC 10-25 H /HPF Urine WBC NONE /HPF Urine Squamous Epithelial Cells 5-10 /HPF Urine Crystals NONE /LPF Urine Bacteria NEGATIVE /HPF Urine Casts NONE /LPF Urine Mucus NEGATIVE /LPF Urine Culture Indicated NO Serum Test, Qualitative NEGATIVE NEGATIVE My Orders Orders - MINH RENO MD Hcg,Qualitative Serum (12/28/20 19:56) Ua Culture If Indicated (12/28/20 19:56) Ondansetron Oral Dissolve Tab (Zofran (12/28/20 20:00) Ibuprofen Tablet (Motrin Tablet) (12/28/20 20:00) Medications Given in ED Current Medications Medications Dose Ordered Sig/Catrachita Route Start Time Stop Time Status Last Admin Dose Admin Ibuprofen 600 mg ONCE ONCE PO 12/28/20 20:00 12/28/20 20:01 DC 12/28/20 20:03 600 MG Ondansetron HCl 4 mg ONCE ONCE PO 12/28/20 20:00 12/28/20 20:01 DC 12/28/20 20:03 4 MG Vital Signs/I&O 12/28/20 19:42 Temp 36.8 Pulse 95 Resp 18 B/P (MAP) 130/81 (97) Pulse Ox 97 O2 Delivery Room Air Capillary Refill : Progress Note : Time: 21:16 Progress Note Patient's qualitative hCG is negative. Urinalysis shows some blood. Patient was treated in the emergency department with Zofran and ibuprofen. She states i t really did not help very much. She is questioning why her anterior thighs hurt bilaterally. She does not have unilateral flank pain or a pattern of pain that is suspicious to me for kidney stone at this time. She is very comfortable sitting in the bed with normal vital signs. No concern for urinary tract/kidney infection. I advised her to take 600 mg of ibuprofen every 6 hours with food as needed for pain and should she develop increasing pain, fever, vomiting or other emergent concerns please return to the emergency room for reevaluation. She verbalizes understanding. All questions are sought and answered. Patient is stable for discharge. Departure Impression Primary Impression: Musculoskeletal pain Additional Impression: Hematuria Disposition: HOME, SELF-CARE Condition: Stable Departure-Patient Inst. Decision time for Depature: 21:17 Referrals: [facility] (PCP) Primary Care Physician LANA JASMINE (Family) Primary Care Physician Patient Instructions: Muscle and Bone Pain (DC) Add. Discharge Instructions: Drink plenty of fluids to stay well-hydrated. Take [id number] ibuprofen, 3 tablets which is 600 mg every 6 hours with food as needed for pain. If you develop one-sided abdominal pain or flank pain especially with fever or vomiting please come back to the emergency room for reevaluation. Follow-up with your primary care provider at [facility]. MINH RENO MD Dec 28, 2020 20:00
[2020-12-28 20:05] LABS: BILIRUBIN,URINE NEGATIVE (NEGATIVE); CLARITY,URINE CLEAR; COLOR,URINE YELLOW; GLUCOSE, URINE (UA) NEGATIVE (NEGATIVE); KETONES,URINE NEGATIVE (NEGATIVE); LEUKOCYTE ESTERASE ,URINE NEGATIVE (NEGATIVE); NITRITE,URINE NEGATIVE (NEGATIVE); PROTEIN,URINE NEGATIVE (NEGATIVE)
[2020-12-28 20:47] LABS: BACTERIA,URINE NEGATIVE /HPF
[2020-12-28 21:22] VITALS: BP 111/69
== END 2020-12-28 21:23 | disposition home or self-care (01) ==
LOC: EDUNIT# 19:32 → ER 19:36
DX: O26.899 Other specified pregnancy related conditions, unspecified trimester (principal); M79.18 Myalgia, other site; R31.9 Hematuria, unspecified; Z3A.00 Weeks of gestation of pregnancy not specified; Z79.52 Long term (current) use of systemic steroids
CPT/HCPCS: 36415; 81000; 84703; 99283

== ENCOUNTER 2021-05-11 16:15 | Emergency (ER) | payer BC, MEDICAID ==
[~2021-05-11] VITALS: Ht 160 cm; Wt 125.6 kg
[2021-05-11 16:23] VITALS: BP 124/73
[2021-05-11 16:57] LABS: BILIRUBIN,URINE NEGATIVE (NEGATIVE); CLARITY,URINE CLEAR; COLOR,URINE YELLOW; GLUCOSE, URINE (UA) NEGATIVE (NEGATIVE); KETONES,URINE NEGATIVE (NEGATIVE); LEUKOCYTE ESTERASE ,URINE TRACE (NEGATIVE); NITRITE,URINE NEGATIVE (NEGATIVE); PH,URINE 6.5 (5-9); PROTEIN,URINE NEGATIVE (NEGATIVE)
[2021-05-11 17:08] LABS: BACTERIA,URINE TRACE /HPF
[2021-05-11 17:26] LABS: BASOPHILS % (AUTO) 1 % (0-10); EOSINOPHILS # (AUTO) 0.2 10^3/uL (0.0-0.3); EOSINOPHILS % (AUTO) 3 % (0-10); HEMATOCRIT 39 % (35-52); HEMOGLOBIN 12.2 g/dL (11.5-16.0); LYMPHOCYTES # (AUTO) 2.8 10^3/uL (1.0-4.0); LYMPHOCYTES % (AUTO) 32 % (12-44); MEAN CORPUSCULAR HEMOGLOBIN 27 pg (25-34); MEAN CORPUSCULAR HGB CONC 31 g/dL (32-36); MEAN CORPUSCULAR VOLUME 87 fL (80-99); MONOCYTES # (AUTO) 0.6 10^3/uL (0.0-1.0); MONOCYTES % (AUTO) 7 % (0-12); NEUTROPHILS % (AUTO) 58 % (42-75); PLATELET COUNT 222 10^3/uL (130-400); WHITE BLOOD COUNT 8.6 10^3/uL (4.3-11.0)
--- NOTE | 2021-05-11 17:27 | ED Chest Pain ---
General Chief Complaint: Chest Pain Stated Complaint: CHEST PAIN Nursing Triage Note: PT AMBULATE TO ROOM 02 WITH C/O CHEST PAIN X2 HOURS. PT DENIES HX OF CARDIAC PROBLEMS. 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 Source: patient Exam Limitations: no limitations History of Present Illness Date Seen by Provider: May 11, 2021 Time Seen by Provider: 17:21 Initial Comments Patient is a 25-year-old female presents ED with upper chest pain. Chest pain described as sharp with pressure. Started 2 hours ago at home. Radiate bilateral shoulders. Associate shortness of breath. Pain worse with deep inspiration. Denies of any nausea, vomiting, diarrhea, fever, chills, Ron pain, headache, dizziness. No known cardiac history. Family history of coronary artery disease. No recent travels or surgeries. Denies any leg sw elling or pain. Currently on control but is not hypoxic or tachycardic. She has pain on palpation of the chest. Allergies and Home Medications Allergies Coded Allergies: Penicillins (Verified Allergy, Unknown, 12/08/18) pt states she is not sure if she has ever had a reaction, but states her mom is allergic to penicillin so she was told to list it as an allergy Patient Home Medication List Home Medication List Reviewed: Yes Alprazolam (Xanax) 0.25 Mg Tablet, 0.25 MG PO BID PRN for ANXIETY Prescribed by: TEMITOPE UDENAS on 07/02/19 2200 Doxycycline Hyclate (Doxycycline Hyclate) 100 Mg Tablet, 100 MG PO BID Prescribed by: JOSE PERLA on 06/03/20 1428 Hyoscyamine Sulfate (Levsin-Sl) 0.125 Mg Tab.subl, 0.125 MG SL Q4H PRN for SPASMS Prescribed by: NIKHIL LANGLEY on 12/08/18 225 Ibuprofen (Ibuprofen) 600 Mg Tablet, 600 MG PO Q6H Prescribed by: JUANI WELSH on 05/11/21 1854 Naproxen (Naproxen) 500 Mg Tablet, (Reported) Entered as Reported by: BRANDEE ALCANTARA on 03/06/19 0914 Ondansetron (Ondansetron Odt) 8 Mg Tab.rapdis, 8 MG PO Q6H PRN for NAUSEA/VOMITING Prescribed by: NIKHIL LANGLEY on 12/08/18 2257 Ondansetron (Ondansetron Odt) 4 Mg Tab.rapdis, 4 MG PO Q4H PRN for NAUSEA/VOMIT ING Prescribed by: JOSE PERLA on 03/06/19 1151 Ondansetron (Ondansetron Odt) 4 Mg Tab.rapdis, 4 MG PO Q6H PRN for NAUSEA/VOMITING Prescribed by: EMEKA MCCLURE on 05/07/19 1901 Prednisone (Prednisone) 20 Mg Tab, (Reported) Entered as Reported by: BRANDEE ALCANTARA on 03/06/19 0914 Review of Systems Review of Systems Constitutional: No chills, No diaphoresis, No fever EENTM: No Blurred Vision Respiratory: Denies Cough, Denies Orthopnea, Denies Shortness of Air, Denies SOA With Exertion Cardiovascular: Chest Pain; Denies Edema Genitourinary: Denies Burning, Denies Discharge, Denies Drainage Musculoskeletal: No back pain, No joint pain; muscle pain Skin: No change in color, No change in hair/nails Psychiatric/Neurological: Denies Anxiety, Denies Depressed All Other Systems Reviewed Negative Unless Noted: Yes Past Nxqqcam-Uthvkz-Gbanzm Hx Patient Social History Tobacco Use?: No Smoking Status: Never a Smoker Smokeless Tobacco Frequency: Never a User Use of E-Cig and/or Vaping dev: No Use of E-Cig and/or Vaping Clark: Never a User Substance use?: No Alcohol Use?: Yes Alcohol Frequency: Once in a while Pt feels they are or have been: No Immunizations Up To Date Tetanus Booster (TDap): Less than 5yrs PED Vaccines UTD: No First/Initial COVID19 Vaccinat: UNKNOWN DATE Second COVID19 Vaccination Nacho: UNKNOWN DATE Third COVID19 Vaccination Date: UNKNOWN DATE COVID19 Vaccine Compound Filler: MODERNA Past Medical History Surgery/Hospitalization HX: HX MISCARRIAGE Surgeries: No (gastric sleeve) Section, Gallbladder Respiratory: No Cardiac: No Neurological: No Reproductive Disorders: No 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 oz. 111.478859oz; 49.00 BMI Method:Stated General Appearance: No Apparent Distress, WD/WN HEENT: PERRL/EOMI, TMs Normal, Normal ENT Inspection, Pharynx Normal Neck: Full Range of Motion, Normal Inspection, Non Tender, Supple Respiratory: Lungs Clear, Normal Breath Sounds, No Accessory Muscle Use, Other (Upper anterior chest wall tenderness. No swelling, erythema or ecchymosis) Cardiovascular: Regular Rate, Rhythm, No Edema, No Gallop, No JVD Gastrointestinal: Normal Bowel Sounds, No Organomegaly, No Pulsatile Mass Extremity: Normal Capillary Refill, Normal Inspection, Normal Range of Motion, Non Tender, No Calf Tenderness Neurologic/Psychiatric: Alert, Oriented x3, No Motor/Sensory Deficits, Normal Mood/Affect Skin: Normal Color, Warm/Dry Progress/Results/Core Measures Results/Orders Lab Results Laboratory Tests Test 05/11/21 16:35 05/11/21 16:52 05/11/21 17:20 Range/Units White Blood Count 8.6 4.3-11.0 10^3/uL Red Blood Count 4.48 3.80-5.11 10^6/uL Hemoglobin 12.2 11.5-16.0 g/dL Hematocrit 39 35-52 % Mean Corpuscular Volume 87 80-99 fL Mean Corpuscular Hemoglobin 27 25-34 pg Mean Corpuscular Hemoglobin Concent 31 L 32-36 g/dL Red Cell Distribution Width 13.7 10.0-14.5 % Platelet Count 222 130-400 10^3/uL Mean Platelet Volume 12.0 9.0-12.2 fL Immature Granulocyte % (Auto) 0 % Neutrophils (%) (Auto) 58 42-75 % Lymphocytes (%) (Auto) 32 12-44 % Monocytes (%) (Auto) 7 0-12 % Eosinophils (%) (Auto) 3 0-10 % Basophils (%) (Auto) 1 0-10 % Neutrophils # (Auto) 5.0 1.8-7.8 10^3/uL Lymphocytes # (Auto) 2.8 1.0-4.0 10^3/uL Monocytes # (Auto) 0.6 0.0-1.0 10^3/uL Eosinophils # (Auto) 0.2 0.0-0.3 10^3/uL Basophils # (Auto) 0.0 0.0-0.1 10^3/uL Immature Granulocyte # (Auto) 0.0 0.0-0.1 10^3/uL D-Dimer 0.58 H 0.00-0.49 UG/ML Troponin I < 0.028 <0.028 NG/ML Urine Color YELLOW Urine Clarity CLEAR Urine pH 6.5 5-9 Urine Specific [place] 1.025 H 1.016-1.022 Urine Protein NEGATIVE NEGATIVE Urine Glucose (UA) NEGATIVE NEGATIVE Urine Ketones NEGATIVE NEGATIVE Urine Nitrite NEGATIVE NEGATIVE Urine Bilirubin NEGATIVE NEGATIVE Urine Urobilinogen 0.2 < = 1.0 MG/DL Urine Leukocyte Esterase TRACE H NEGATIVE Urine RBC (Auto) NEGATIVE NEGATIVE Urine RBC NONE /HPF Urine WBC 2-5 /HPF Urine Squamous Epithelial Cells 5-10 /HPF Urine Crystals NONE /LPF Urine Bacteria TRACE /HPF Urine Casts NONE /LPF Urine Mucus NEGATIVE /LPF Urine Culture Indicated NO Urine Test NEGATIVE NEGATIVE Sodium Level 143 135-145 MMOL/L Potassium Level 3.9 3.6-5.0 MMOL/L Chloride Level 111 H 98-107 MMOL/L Carbon Dioxide Level 20 L 21-32 MMOL/L Anion Gap 12 5-14 MMOL/L Blood Urea Nitrogen 12 7-18 MG/DL Creatinine 0.70 0.60-1.30 MG/DL Estimat Glomerular Filtration Rate 125 BUN/Creatinine Ratio 17 Glucose Level 86 70-105 MG/DL Calcium Level 8.6 8.5-10.1 MG/DL Corrected Calcium 8.7 8.5-10.1 MG/DL Magnesium Level 2.2 1.6-2.4 MG/DL Total Bilirubin 0.2 0.1-1.0 MG/DL Aspartate Amino Transf (AST/SGOT) 11 5-34 U/L Alanine Aminotransferase (ALT/SGPT) 10 0-55 U/L Alkaline Phosphatase 69 40-136 U/L Total Protein 7.1 6.4-8.2 GM/DL Albumin 3.9 3.2-4.5 GM/DL Lipase 23 8-78 U/L My Orders Orders - PETERSON,ELIZABETH A PA Ekg Tracing (05/11/21 16:37) Chest Pa/Lat (2 View) (05/11/21 16:41) Ua Culture If Indicated (05/11/21 16:41) Hcg,Qualitative Urine (05/11/21 16:41) Cbc With Automated Diff (05/11/21 17:21) Comprehensive Metabolic Panel (05/11/21 17:21) Lipase (05/11/21 17:21) Magnesium (05/11/21 17:21) Fibrin Degradation Products (05/11/21 17:33) Troponin I Rik (05/11/21 17:33) Ketorolac Injection (Toradol Injection) (05/11/21 18:00) Ct Angio Chest W (05/11/21 18:01) Lorazepam Injection (Ativan Injection) (05/11/21 18:30) Lorazepam Injection (Ativan Injection) (05/11/21 18:22) Iohexol Injection (Omnipaque 350 Mg/Ml 1 (05/11/21 18:30) Received Contrast (Hold Metformin- Contr (05/11/21 18:30) Ns (Ivpb) (Sodium Chloride 0.9% Ivpb Bag (05/11/21 18:30) Medications Given in ED Current Medications Medications Dose Ordered Sig/Catrachita Route Start Time Stop Time Status Last Admin Dose Admin Iohexol 100 ml ONCE ONCE IV 05/11/21 18:30 05/11/21 18:31 DC 05/11/21 18:33 88 ML Ketorolac Tromethamine 30 mg ONCE ONCE IVP 05/11/21 18:00 05/11/21 18:01 DC 05/11/21 18:04 30 MG Lorazepam 1 mg ONCE ONCE IVP 05/11/21 18:30 05/11/21 18:31 DC 05/11/21 18:34 1 MG Sodium Chloride 100 ml ONCE ONCE IV 05/11/21 18:30 05/11/21 18:31 DC 05/11/21 18:33 80 ML Vital Signs/I&O 05/11/21 16:23 Temp 36.6 Pulse 90 Resp 19 B/P (MAP) 124/73 (90) O2 Delivery Room Air Blood Pressure Mean: 90 Comment Sinus rhythm, 89 bpm, QRS duration 85 MS, QTc 434 MS Departure Communication (Admissions) Patient presents ED with chest pain. Acute onset few hours before arrival. She does have some minimal tenderness to the chest wall which appears to be worse with deep inspiration. No known cardiac history. Family history of heart disease. EKGs sinus rhythm. No evidence of ST elevation or depression. Currently on control. Not able to rule out PE with PERC. Patient became tachycardic at times but was not hypoxic. Slight elevated D-dimer. CT angio chest negative for PE, pneumothorax, pneumonia. Equal blood pressures bilateral. Patient became anxious during CT scan was given Ativan. Patient was given Toradol with improvement. Appears to be more pleurisy type pain. No exacerbating pain with eating. She has no right or epigastric tenderness on palpation. Vital signs stable. If any worsening symptoms return back to ED for further evaluation. Outpatient follow-up Impression Primary Impression: Chest pain Disposition: 01 HOME, SELF-CARE Condition: Stable Departure-Patient Inst. Decision time for Depature: 18:53 Referrals: [facility] (PCP) Primary Care Physician LANA JASMINE (Family) Primary Care Physician Patient Instructions: Chest Pain (DC) Scripts Ibuprofen (Ibuprofen) 600 Mg Tablet 600 MG PO Q6H for PAIN, #14 TAB 0 Refills Prov: ELIZABETH PETERSON 05/11/21 ELIZABETH PETERSON May 11, 2021 17:27
[2021-05-11 17:30] LABS: ALBUMIN 3.9 GM/DL (3.2-4.5); POTASSIUM 3.9 MMOL/L (3.6-5.0)
[2021-05-11 17:32] LABS: CALCIUM 8.6 MG/DL (8.5-10.1)
[2021-05-11 17:33] LABS: TOTAL PROTEIN 7.1 GM/DL (6.4-8.2)
[2021-05-11 17:35] LABS: BILIRUBIN,TOTAL 0.2 MG/DL (0.1-1.0)
[2021-05-11 17:36] LABS: CREATININE SERUM 0.7 MG/DL (0.60-1.30)
--- NOTE | 2021-05-11 17:36 | Diagnostic Imaging Report ---
INDICATION: Chest pain COMPARISON: 12/08/2018 FINDINGS: Frontal and lateral views of the chest demonstrate clear lungs bilaterally. The heart is normal. There is no pneumothorax. The osseous structures are normal. IMPRESSION: Negative chest Dictated by: Dictated on workstation # [id number]
[2021-05-11 17:39] LABS: MAGNESIUM 2.2 MG/DL (1.6-2.4)
[2021-05-11] MEDS ORDERED: KETOROLAC 30 MG/ML VIAL IVP ONE (18:00)
[2021-05-11] MEDS ORDERED: LORazepam INJ 2 MG/ML (ATIVAN) VIAL ONE (18:22)
[2021-05-11] MEDS ORDERED: IOHEXOL 350 MG/ML 100 ML (OMNIPAQUE 350) VIAL IV ONE (18:30)
[2021-05-11] MEDS ORDERED: LORazepam INJ 2 MG/ML (ATIVAN) VIAL IVP ONE (18:30)
[2021-05-11] MEDS ORDERED: HOLD METFORMIN - RECEIVED CONTRAST 20 ML VIAL IV SCH (18:30)
[2021-05-11] MEDS ORDERED: NS 100 ML (IVPB) BAG IV ONE (18:30)
--- NOTE | 2021-05-11 18:39 | Diagnostic Imaging Report ---
PROCEDURE: CT angiography of the chest with contrast. TECHNIQUE: Multiple contiguous axial images were obtained through the chest after uneventful bolus administration of intravenous contrast. 3D reconstructed CTA MIP acquisitions were also performed. Auto Exposure Controls were utilized during the CT exam to meet ALARA standards for radiation dose reduction. INDICATION: 2-hour chest pain FINDINGS The pulmonary arterial branches are well opacified and widely patent. No filling defect. No PE. The thoracic aorta patent, nonaneurysmal, and nonacute. No pulmonary consolidation, edema, or pneumonia. No effusion or pneumothorax. No mass or adenopathy. No chest wall abnormality. The visualized upper abdomen appeared nonacute. IMPRESSION: Negative for PE or other acute abnormalities. Dictated by: Dictated on workstation # [id number]
[2021-05-11] MEDS ORDERED: IBUP-1773 PO (18:54)
== END 2021-05-11 18:58 | disposition home or self-care (01) ==
LOC: EDUNIT# 16:15 → ER 16:19
DX: R07.9 Chest pain, unspecified (principal)
CPT/HCPCS: 36415; 71046; 71275; 80053; 81000; 83690; 83735; 84484; 84703; 85025; 85379; 93005

== ENCOUNTER 2021-05-28 10:03 | Emergency (ER) | payer BC, MEDICAID ==
[~2021-05-28] VITALS: Ht 157 cm; Wt 126.0 kg
[~2021-05-28 10:03] MED LIST changes: +IBUP-1773 PO
[2021-05-28] MEDS ORDERED: CEPH500C (10:35)
[2021-05-28] MEDS ORDERED: MEDR150V (10:35)
[2021-05-28 10:41] LABS: BILIRUBIN,URINE NEGATIVE (NEGATIVE); CLARITY,URINE SL CLOUDY; COLOR,URINE YELLOW; GLUCOSE, URINE (UA) NEGATIVE (NEGATIVE); KETONES,URINE NEGATIVE (NEGATIVE); LEUKOCYTE ESTERASE ,URINE 3+ (NEGATIVE); NITRITE,URINE NEGATIVE (NEGATIVE); PROTEIN,URINE NEGATIVE (NEGATIVE)
[2021-05-28 10:53] LABS: BACTERIA,URINE MODERATE /HPF; RBC,URINE RARE /HPF; WBC,URINE 25-50 /HPF
--- NOTE | 2021-05-28 11:02 | ED GU-Female ---
General Chief Complaint: - Reproductive Stated Complaint: CHILLS/BACK PAIN/ UTI SYMPTOMS Nursing Triage Note: ARRIVED VIA AMB TO ROOM 06 WITH COMPLAINTS OF LEFT LOWER BACK PAIN AND CHILLS. STATES SHE IS ON KEFLEX FOR A UTI AND DIFLUCAN FOR A YEAST INFECTION. Source: patient Exam Limitations: no limitations History of Present Illness Date Seen by Provider: May 28, 2021 Time Seen by Provider: 11:01 Initial Comments To ER with lower back pain, chills, nausea. She is on Keflex for UTI started about 4 days ago. She denies any improvement in her urinary symptoms. She did develop a yeast infection and is on Diflucan. Timing/Duration: constant, week, getting worse Severity/Quality: moderate Radiation: none Activities at Onset: none Prior Genitourinary Problems: none Associated Symptoms: dysuria, lower back pain, nausea/vomiting Allergies and Home Medications Allergies Coded Allergies: Penicillins (Verified Allergy, Unknown, 12/08/18) pt states she is not sure if she has ever had a reaction, but states her mom is allergic to penicillin so she was told to list it as an allergy Patient Home Medication List Home Medication List Reviewed: Yes Alprazolam (Xanax) 0.25 Mg Tablet, 0.25 MG PO BID PRN for ANXIETY Prescribed by: TEMITOPE DUENAS on 07/02/192199 Cephalexin (Cephalexin) 500 Mg Capsule, (Reported) Entered as Reported by: IVAN TRACEY on 05/28/21 1035 Last Action: New Order Medroxyprogesterone Acetate (Depo-Provera) 150 Mg/1 Ml Vial, (Reported) Entered as Reported by: IVAN TRACEY on 05/28/21 1035 Last Action: New Order Naproxen (Naproxen) 500 Mg Tablet, (Reported) Entered as Reported by: BRANDEE ALCANTARA on 03/06/19 0914 Discontinued Medications Doxycycline Hyclate (Doxycycline Hyclate) 100 Mg Tablet, 100 MG PO BID Discontinued Reason: No Longer Taking Prescribed by: JOSE PERLA on 06/03/20 1428 Last Action: Discontinued Hyoscyamine Sulfate (Levsin-Sl) 0.125 Mg Tab.subl, 0.125 MG SL Q4H PRN for SPASMS Discontinued Reason: No Longer Taking Prescribed by: NIKHIL LANGLEY on 12/08/182256 Last Action: Discontinued Ibuprofen (Ibuprofen) 600 Mg Tablet, 600 MG PO Q6H Discontinued Reason: No Longer Taking Prescribed by: JUANI WELSH on 05/11/21 185 Last Action: Discontinued Ondansetron (Ondansetron Odt) 8 Mg Tab.rapdis, 8 MG PO Q6H PRN for NAUSEA/VOMITING Discontinued Reason: No Longer Taking Prescribed by: NIKHIL LANGLEY on 12/08/182256 Last Action: Discontinued Ondansetron (Ondansetron Odt) 4 Mg Tab.rapdis, 4 MG PO Q4H PRN for NAUSEA/VOMITING Discontinued Reason: No Longer Taking Prescribed by: JOSE PERLA on 03/06/19 115 Last Action: Discontinued Ondansetron (Ondansetron Odt) 4 Mg Tab.rapdis, 4 MG PO Q6H PRN for NAUSEA/VOMITING Discontinued Reason: No Longer Taking Prescribed by: EMEKA MCCLURE on 05/07/19 1901 Last Action: Discontinued Prednisone (Prednisone) 20 Mg Tab, (Reported) Discontinued Reason: No Longer Taking Entered as Reported by: BRANDEE ALCANTARA on 03/06/19 0914 Last Action: Discontinued Review of Systems Review of Systems Constitutional: see HPI EENTM: see HPI Respiratory: no symptoms reported Cardiovascular: no symptoms reported Genitourinary: no symptoms reported Musculoskeletal: no symptoms reported Skin: no symptoms reported Psychiatric/Neurological: No Symptoms Reported Endocrine: No Symptoms Reported Past Tdflsjs-Mqqkav-Lrrcmd Hx Patient Social History Tobacco Use?: No Alcohol Use?: No Immunizations Up To Date Tetanus Booster (TDap): Less than 5yrs PED Vaccines UTD: No First/Initial COVID19 Vaccinat: UNKNOWN DATE Second COVID19 Vaccination Nacho: UNKNOWN DATE Third COVID19 Vaccination Date: UNKNOWN DATE 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 Past Medical History Surgery/Hospitalization HX: HX MISCARRIAGE Surgeries: No (gastric sleeve) Section, Gallbladder Respiratory: No Cardiac: No Neurological: No Reproductive Disorders: No 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 oz. 111.021646nt; 51.00 BMI Method:Stated General Appearance: WD/WN, no apparent distress HEENT: PERRL/EOMI, normal ENT inspection Neck: non-tender, full range of motion Respiratory: no respiratory distress, no accessory muscle use Gastrointestinal: normal bowel sounds, non tender, soft Back: No CVA tenderness (R), No CVA tenderness (L) Extremities: normal range of motion, non-tender Neurologic/Psychiatric: alert, normal mood/affect, oriented x 3 Skin: normal color, warm/dry Progress/Results/Core Measures Suspected Sepsis SIRS Temperature: Pulse: 86 Respiratory Rate: 16 Blood Pressure 140 /113 Mean: 122 Results/Orders Lab Results Laboratory Tests Test 05/28/21 10:23 Range/Units Urine Color YELLOW Urine Clarity SL CLOUDY Urine pH 7.0 5-9 Urine Specific [place] <=1.005 1.016-1.022 Urine Protein NEGATIVE NEGATIVE Urine Glucose (UA) NEGATIVE NEGATIVE Urine Ketones NEGATIVE NEGATIVE Urine Nitrite NEGATIVE NEGATIVE Urine Bilirubin NEGATIVE NEGATIVE Urine Urobilinogen 0.2 < = 1.0 MG/DL Urine Leukocyte Esterase 3+ H NEGATIVE Urine RBC (Auto) TRACE-L H NEGATIVE Urine RBC RARE /HPF Urine WBC 25-50 H /HPF Urine Squamous Epithelial Cells 10-25 H /HPF Urine Crystals NONE /LPF Urine Bacteria MODERATE H /HPF Urine Casts NONE /LPF Urine Mucus NEGATIVE /LPF Urine Culture Indicated YES Urine Test NEGATIVE NEGATIVE My Orders Orders - TEMITOPE DUENAS APRN Ua Culture If Indicated (05/28/21 10:30) Hcg,Qualitative Urine (05/28/21 10:30) Urine Culture (05/28/21 10:23) Vital Signs/I&O 05/28/21 10:20 Temp 36.7 Pulse 86 Resp 16 B/P (MAP) 140/113 (122) Pulse Ox 100 O2 Delivery Room Air Capillary Refill : Less Than 3 Seconds Blood Pressure Mean: 122 Departure Impression Primary Impression: Urinary tract infection Disposition: 01 HOME, SELF-CARE Condition: Stable Departure-Patient Inst. Decision time for Depature: 11:07 Referrals: [facility] (PCP) Primary Care Physician LANA JASMINE (Family) Primary Care Physician Patient Instructions: Urinary Tract Infection, Adult (DC) Add. Discharge Instructions: 1. Start the new antibiotic today. Stop the cephalexin. Continue the Diflucan. Follow-up with your doctor first of next week and return to ER for any worsening symptoms. All discharge instructions reviewed with patient and/or family. Voiced understanding. Scripts Fluconazole (Diflucan) 150 Mg Tablet 150 MG PO DAILY, #4 TAB Prov: TEMITOPE DUENAS APRN 05/28/21 Cefdinir (Cefdinir) 300 Mg Capsule 300 MG PO BID, #14 CAP 0 Refills Prov: TEMITOPE DUENAS APRN 05/28/21 Work/School Note: Work Release Form Date Seen in the Emergency Department: May 28, 2021 Return to Work: May 29, 2021 TEMITOPE DUENAS APRN May 28, 2021 11:02
[2021-05-28] MEDS ORDERED: FLUC150T PO (11:09)
[2021-05-28] MEDS ORDERED: CEFD300C3 PO (11:09)
[2021-05-28 11:18] VITALS: BP 127/92
== END 2021-05-28 11:18 | disposition home or self-care (01) ==
LOC: EDUNIT# 10:03 → ER 10:06
DX: N39.0 Urinary tract infection, site not specified (principal); Z97.5 Presence of (intrauterine) contraceptive device; Z88.0 Allergy status to penicillin; Z32.02 Encounter for pregnancy test, result negative
CPT/HCPCS: 81000; 84703; 87088; 99281

== ENCOUNTER 2021-06-08 15:23 | Emergency (ER) | payer MEDICAID ==
[~2021-06-08] VITALS: Ht 160 cm; Wt 126.0 kg
[~2021-06-08 15:23] MED LIST changes: +CEFD300C3 PO; +CEPH500C; +FLUC150T PO; +MEDR150V
[2021-06-08] MEDS ORDERED: DICYCLOMINE 10 MG/ML (BENTYL) 2 ML AMP IM STA (15:56)
--- NOTE | 2021-06-08 15:59 | ED Abdominal Pain ---
General Stated Complaint: STOMACH CRAMPS/BLOOD IN STOOL/BACK PAIN/NAUSEA/SOA Source of Information: Patient Exam Limitations: No Limitations History of Present Illness Date Seen by Provider: Jun 08, 2021 Time Seen by Provider: 15:48 Initial Comments Patient is a 25-year-old female who presents to the emergency room with 1 day of lower abdominal stomach cramping, diarrhea and blood in her stool. Patient was at work she started having some low back pain nausea and feeling short of b reath. She denies fevers or chills. No burning with urination or abnormal vaginal discharge. Recently treated in the last 2 weeks for urinary tract infection. She has Depo-Provera on board, last injection the end of March beginning april. No concern for STI. Nothing really makes the cramping any better or worse. She has not really taken any medications for it. No fa sergio history of inflammatory bowel disorders. She has never had a colonoscopy. No known sick contacts. She states she just had one episode today of bloody stool. All other review of systems reviewed and negative except as stated. Timing/Duration: 4-6 Hours Severity/Quality: Moderate, Cramping Location: Suprapubic Radiation: No Radiation Activities at Onset: Other (working) Associated Symptoms: Nausea/Vomiting (nausea without vomiting) Allergies and Home Medications Allergies Coded Allergies: Penicillins (Verified Allergy, Unknown, 12/08/18) pt states she is not sure if she has ever had a reaction, but states her mom is allergic to penicillin so she was told to list it as an allergy Patient Home Medication List Home Medication List Reviewed: Yes Alprazolam (Xanax) 0.25 Mg Tablet, 0.25 MG PO BID PRN for ANXIETY Prescribed by: TEMITOPE DUENAS on 07/02/19 2200 Cefdinir (Cefdinir) 300 Mg Capsule, 300 MG PO BID Prescribed by: TEMITOPE DUENAS on 05/28/21 1109 Cephalexin (Cephalexin) 500 Mg Capsule, (Reported) Entered as Reported by: IVAN TRACEY on 05/28/21 1035 Fluconazole (Diflucan) 150 Mg Tablet, 150 MG PO DAILY Prescribed by: TEMITOPE DUENAS on 05/28/21 1109 Medroxyprogesterone Acetate (Depo-Provera) 150 Mg/1 Ml Vial, (Reported) Entered as Reported by: IVAN TRACEY on 05/28/21 1035 Naproxen (Naproxen) 500 Mg Tablet, (Reported) Entered as Reported by: BRANDEE ALCANTARA on 03/06/19 0914 Review of Systems Review of Systems Constitutional: see HPI EENTM: No Symptoms Reported Respiratory: No Symptoms Reported Cardiovascular: No Symptoms Reported Gastrointestinal: Abdominal Pain, Diarrhea, Nausea, Rectal Bleeding Genitourinary: Burning Musculoskeletal: no symptoms reported Skin: no symptoms reported Psychiatric/Neurological: No Symptoms Reported All Other Systems Reviewed Negative Unless Noted: Yes Past Appnkhi-Njlivi-Vjxofu Hx Immunizations Up To Date Tetanus Booster (TDap): Less than 5yrs PED Vaccines UTD: No First/Initial COVID19 Vaccinat: UNKNOWN DATE Second COVID19 Vaccination Nacho: UNKNOWN DATE Third COVID19 Vaccination Date: UNKNOWN DATE Past Medical History Surgery/Hospitalization HX: HX MISCARRIAGE Surgeries: No (gastric sleeve) Section, Gallbladder Respiratory: No Cardiac: No Neurological: No Reproductive Disorders: No 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 oz. [id number]; 51.00 BMI Method:Stated General Appearance: WD/WN, no apparent distress HEENT: PERRL/EOMI Neck: normal inspection Respiratory: lungs clear, normal breath sounds, no respiratory distress, no accessory muscle use Cardiovascular: regular rate, rhythm (90's) Gastrointestinal: normal bowel sounds, soft, tenderness (bilateral lower quadrants) Rectal: normal exam, heme positive stool Extremities: normal range of motion, non-tender, normal inspection Neurologic/Psychiatric: alert, normal mood/affect, oriented x 3 Skin: normal color, warm/dry Progress/Results/Core Measures Results/Orders Lab Results Laboratory Tests Test 06/08/21 16:18 06/08/21 16:20 Range/Units White Blood Count 7.7 4.3-11.0 10^3/uL Red Blood Count 4.41 3.80-5.11 10^6/uL Hemoglobin 12.1 11.5-16.0 g/dL Hematocrit 39 35-52 % Mean Corpuscular Volume 88 80-99 fL Mean Corpuscular Hemoglobin 27 25-34 pg Mean Corpuscular Hemoglobin Concent 31 L 32-36 g/dL Red Cell Distribution Width 13.9 10.0-14.5 % Platelet Count 230 130-400 10^3/uL Mean Platelet Volume 11.2 9.0-12.2 fL Immature Granulocyte % (Auto) 0 % Neutrophils (%) (Auto) 59 42-75 % Lymphocytes (%) (Auto) 35 12-44 % Monocytes (%) (Auto) 6 0-12 % Eosinophils (%) (Auto) 0 0-10 % Basophils (%) (Auto) 0 0-10 % Neutrophils # (Auto) 4.5 1.8-7.8 10^3/uL Lymphocytes # (Auto) 2.7 1.0-4.0 10^3/uL Monocytes # (Auto) 0.5 0.0-1.0 10^3/uL Eosinophils # (Auto) 0.0 0.0-0.3 10^3/uL Basophils # (Auto) 0.0 0.0-0.1 10^3/uL Immature Granulocyte # (Auto) 0.0 0.0-0.1 10^3/uL Sodium Level 139 135-145 MMOL/L Potassium Level 3.6 3.6-5.0 MMOL/L Chloride Level 109 H 98-107 MMOL/L Carbon Dioxide Level 22 21-32 MMOL/L Anion Gap 8 5-14 MMOL/L Blood Urea Nitrogen 10 7-18 MG/DL Creatinine 0.68 0.60-1.30 MG/DL Estimat Glomerular Filtration Rate 125 BUN/Creatinine Ratio 15 Glucose Level 88 70-105 MG/DL Calcium Level 8.9 8.5-10.1 MG/DL Corrected Calcium 9.0 8.5-10.1 MG/DL Total Bilirubin 0.3 0.1-1.0 MG/DL Aspartate Amino Transf (AST/SGOT) 12 5-34 U/L Alanine Aminotransferase (ALT/SGPT) 10 0-55 U/L Alkaline Phosphatase 64 40-136 U/L Total Protein 7.2 6.4-8.2 GM/DL Albumin 3.9 3.2-4.5 GM/DL Urine Color YELLOW Urine Clarity CLEAR Urine pH 6.0 5-9 Urine Specific [place] 1.020 1.016-1.022 Urine Protein NEGATIVE NEGATIVE Urine Glucose (UA) NEGATIVE NEGATIVE Urine Ketones NEGATIVE NEGATIVE Urine Nitrite NEGATIVE NEGATIVE Urine Bilirubin NEGATIVE NEGATIVE Urine Urobilinogen 0.2 < = 1.0 MG/DL Urine Leukocyte Esterase NEGATIVE NEGATIVE Urine RBC (Auto) NEGATIVE NEGATIVE Urine RBC NONE /HPF Urine WBC 5-10 H /HPF Urine Squamous Epithelial Cells 25-50 H /HPF Urine Crystals NONE /LPF Urine Bacteria FEW H /HPF Urine Casts NONE /LPF Urine Mucus NEGATIVE /LPF Urine Culture Indicated YES My Orders Orders - MINH RENO MD Ed Iv/Invasive Line Start (06/08/21 15:56) Cbc With Automated Diff (06/08/21 15:56) Comprehensive Metabolic Panel (06/08/21 15:56) Ua Culture If Indicated (06/08/21 15:56) Urine Bedside (06/08/21 15:56) Dicyclomine Injection (Bentyl Injection) (06/08/21 15:56) Ondansetron Injection (Zofran Injectio (06/08/21 16:00) Ns Iv 1000 Ml (Sodium Chloride 0.9%) (06/08/21 16:00) Fecal Occult Bedside (06/08/21 15:57) Urine Culture (06/08/21 16:20) Lidocaine 2% Viscous 15 Ml (Xylocaine Vi (06/08/21 17:15) Medications Given in ED Current Medications Medications Dose Ordered Sig/Catrachita Route Start Time Stop Time Status Last Admin Dose Admin Ondansetron HCl 8 mg ONCE ONCE IVP 06/08/21 16:00 06/08/21 16:01 DC 06/08/21 16:19 8 MG Progress Progress Note : Time: 17:09 Progress Note Patient reevaluated, states that her cramping is better but she has burning in the epigastric area. We will give her a GI cocktail. I have reviewed her laboratory studies with her, everything is within normal limits. Her exam is improved. Nausea is better. We will send her home with a prescription for nausea medications and Bentyl. Recommend follow-up with general surgery for colonoscopy/further evaluation and management of the bloody stool. Likely just an enteritis that has caused a little bloody stool. Will also recommend clear liquids for the next 24 hours. Return precautions given. She verbalized understanding. All questions are sought and answered Departure Impression Primary Impression: Enteritis Additional Impression: Blood in the stool Disposition: 01 HOME, SELF-CARE Condition: Stable Departure-Patient Inst. Decision time for Depature: 17:13 Referrals: [facility] (PCP) Primary Care Physician LANA JASMINE (Family) Primary Care Physician MARISA KEYES DO Patient Instructions: Bloody Stools, Adult (DC) Add. Discharge Instructions: Drink plenty of fluids to stay well-hydrated. Use the Bentyl, every 6 hours as needed for abdominal cramping. You can take it approximately 30 minutes before meals. Zofran every 8 hours as needed for nausea. Return to the emergency room for any worsening abdominal pain especially with fever, increasing amounts of blood in your stool or any other emergent concerning symptoms. I have given you contact information for Dr. Keyes, he is the general surgeon on-call that you would see for possible further evaluation of bloody stool, to include a colonoscopy. Scripts Ondansetron (Ondansetron Odt) 8 Mg Tab.rapdis 8 MG PO Q8H PRN for nausea, #20 TAB Prov: MINH RENO MD 06/08/21 Dicyclomine HCl (Dicyclomine HCl) 20 Mg Tablet 20 MG PO Q6H PRN for abdominal cramping, #60 TAB Prov: MINH RENO MD 06/08/21 MINH RENO MD Jun 08, 2021 15:59
[2021-06-08] MEDS ORDERED: NS IV 1000 ML 1,000 ML IV SCH (16:00)
[2021-06-08] MEDS ORDERED: ONDANSETRON 4 MG/2 ML (SDV) Z0FRAN IVP ONE (16:00)
[2021-06-08 16:25] LABS: BILIRUBIN,URINE NEGATIVE (NEGATIVE); CLARITY,URINE CLEAR; COLOR,URINE YELLOW; GLUCOSE, URINE (UA) NEGATIVE (NEGATIVE); KETONES,URINE NEGATIVE (NEGATIVE); LEUKOCYTE ESTERASE ,URINE NEGATIVE (NEGATIVE); NITRITE,URINE NEGATIVE (NEGATIVE); PROTEIN,URINE NEGATIVE (NEGATIVE)
[2021-06-08 16:29] LABS: BASOPHILS % (AUTO) 0 % (0-10); EOSINOPHILS % (AUTO) 0 % (0-10); HEMATOCRIT 39 % (35-52); HEMOGLOBIN 12.1 g/dL (11.5-16.0); LYMPHOCYTES # (AUTO) 2.7 10^3/uL (1.0-4.0); LYMPHOCYTES % (AUTO) 35 % (12-44); MEAN CORPUSCULAR HEMOGLOBIN 27 pg (25-34); MEAN CORPUSCULAR HGB CONC 31 g/dL (32-36); MEAN CORPUSCULAR VOLUME 88 fL (80-99); MEAN PLATELET VOLUME 11.2 fL (9.0-12.2); MONOCYTES # (AUTO) 0.5 10^3/uL (0.0-1.0); MONOCYTES % (AUTO) 6 % (0-12); NEUTROPHILS # (AUTO) 4.5 10^3/uL (1.8-7.8); NEUTROPHILS % (AUTO) 59 % (42-75); PLATELET COUNT 230 10^3/uL (130-400); WHITE BLOOD COUNT 7.7 10^3/uL (4.3-11.0)
[2021-06-08 16:34] LABS: BACTERIA,URINE FEW /HPF; SQUAMOUS EPITHELIAL CELL,UR 25-50 /HPF
[2021-06-08 16:39] LABS: ALBUMIN 3.9 GM/DL (3.2-4.5); POTASSIUM 3.6 MMOL/L (3.6-5.0)
[2021-06-08 16:40] LABS: CALCIUM 8.9 MG/DL (8.5-10.1)
[2021-06-08 16:42] LABS: TOTAL PROTEIN 7.2 GM/DL (6.4-8.2)
[2021-06-08 16:43] LABS: BILIRUBIN,TOTAL 0.3 MG/DL (0.1-1.0)
[2021-06-08 16:45] LABS: CREATININE SERUM 0.68 MG/DL (0.60-1.30)
[2021-06-08] MEDS ORDERED: LIDOCAINE 2% VISCOUS 15 ML UDC PO ONE (17:15)
[2021-06-08] MEDS ORDERED: ANTACID SUSP 30 ML UDC (MYLANTA) PO ONE (17:15)
[2021-06-08] MEDS ORDERED: SUCRALFATE 1 GM (CARAFATE) TAB PO ONE (17:15)
[2021-06-08] MEDS ORDERED: DICY20TA PO (17:21)
[2021-06-08] MEDS ORDERED: ONDA8TAB13 PO (17:21)
[2021-06-08 17:39] VITALS: BP 152/92
== END 2021-06-08 17:33 | disposition home or self-care (01) ==
LOC: EDUNIT# 15:23 → ER 15:25
DX: K52.9 Noninfective gastroenteritis and colitis, unspecified (principal); K92.1 Melena
CPT/HCPCS: 36415; 80053; 81000; 82274; 84703; 85025; 87088

== ENCOUNTER 2021-08-17 19:13 | Emergency (ER) | payer MEDICAID ==
[~2021-08-17] VITALS: Ht 160 cm; Wt 126.0 kg
[~2021-08-17 19:13] MED LIST changes: +DICY20TA PO
[2021-08-17 20:36] VITALS: BP 148/96
[2021-08-17] MEDS ORDERED: MECLIZINE 25 MG (ANTIVERT) TAB PO ONE (20:45)
--- NOTE | 2021-08-17 20:47 | ED Chest Pain ---
General Chief Complaint: Dizziness/Syncope Stated Complaint: SOB,HEART PALPATIONS, N Nursing Triage Note: PT PRESENTS WITH REPORT OF NAUSEA, DIZZINESS, PALPITATIONS, WEAKNESS, sob, BURNING WITH URINATION THAT ALL STARTED TWO HOURS AGO Source: patient Exam Limitations: no limitations (ELIZABETH PETERSON) History of Present Illness Date Seen by Provider: August 17, 2021 Time Seen by Provider: 20:46 Initial Comments Patient is a 25-year-old female who presents ED with multiple complaints. Chest pain, dizziness, heart palpitations that started around 4:00 today while sitting at home. Reports a sharp intermittent pain in the chest with heart palpitations. Associate shortness of breath without cough. She states she started feeling dizzy and lightheaded felt like the room was spinning. That was constant for about 2 hours which has improved. She reports a mild ear ringing. No recent URI. She did have some pressure to the right side of her head took Excedrin migraine with some improvement. History of migraines and states the head pain feels similar. She also reports burning with urination that started today. She is not concerned for . No vaginal discharge or vaginal bleeding. No family history of sudden cardiac .. No recent travels or surgery or currently on oral contraceptives. Denies fever, sore throat, abdominal pain, cough. (ELIZABETH PETERSON) Allergies and Home Medications Allergies Coded Allergies: Penicillins (Verified Allergy, Unknown, 12/08/18) pt states she is not sure if she has ever had a reaction, but states her mom is allergic to penicillin so she was told to list it as an allergy Patient Home Medication List Home Medication List Reviewed: Yes (ELIZABETH PETERSON) Alprazolam (Xanax) 0.25 Mg Tablet, 0.25 MG PO BID PRN for ANXIETY Prescribed by: TEMITOPE DUENAS on 07/02/19 2200 Cefdinir (Cefdinir) 300 Mg Capsule, 300 MG PO BID Prescribed by: TEMITOPE DUENAS on 05/28/21 1109 Cephalexin (Cephalexin) 500 Mg Capsule, (Reported) Entered as Reported by: IVAN TRACEY on 05/28/21 1035 Dicyclomine HCl (Dicyclomine HCl) 20 Mg Tablet, 20 MG PO Q6H PRN for abdominal cramping Prescribed by: MINH RENO on 06/08/21 1721 Fluconazole (Diflucan) 150 Mg Tablet, 150 MG PO DAILY Prescribed by: TEMITOPE DUENAS on 05/28/21 1109 Medroxyprogesterone Acetate (Depo-Provera) 150 Mg/1 Ml Vial, (Reported) Entered as Reported by: IVAN TRACEY on 05/28/21 1035 Naproxen (Naproxen) 500 Mg Tablet, (Reported) Entered as Reported by: BRANDEE ALCANTARA on 03/06/19 0914 Ondansetron (Ondansetron Odt) 8 Mg Tab.rapdis, 8 MG PO Q8H PRN for nausea Prescribed by: MINH RENO on 06/08/21 1721 Review of Systems Review of Systems Constitutional: No chills, No diaphoresis, No dizziness, No fever, No malaise, No weakness EENTM: No Eye Pain, No Eye Tearing, No Ear Drainage, No Ear Pain, No Throat Pain, No Throat Swelling Respiratory: Denies Cough, Denies Orthopnea; Shortness of Air; Denies SOA With Exertion Cardiovascular: Chest Pain; Denies Edema, Denies Irregular Heart Rate, Denies Lightheadedness Gastrointestinal: Denies Abdominal Pain, Denies Diarrhea, Denies Nausea, Denies Vomiting Genitourinary: Denies Burning, Denies Discharge, Denies Drainage, Denies Frequency Musculoskeletal: No back pain, No joint pain, No joint swelling, No muscle pain, No muscle stiffness Skin: No change in color, No change in hair/nails (ELIZABETH PETERSON) All Other Systems Reviewed Negative Unless Noted: Yes (ELIZABETH PETERSON) Past Vqtgmcw-Gvhekl-Oxbyxh Hx Patient Social History Tobacco Use?: No Substance use?: Yes Substance type: Marijuana Alcohol Use?: No (ELIZABETH PETERSON) Immunizations Up To Date Tetanus Booster (TDap): Less than 5yrs PED Vaccines UTD: No Influenza Vaccine Up-to-Date: Yes; Up-to-Date First/Initial COVID19 Vaccinat: UNKOWN DATE Second COVID19 Vaccination Nacho: UNKNOWN DATE Third COVID19 Vaccination Date: UNKNOWN DATE (ELIZABETH PETERSON) Past Medical History Surgery/Hospitalization HX: GASTRIC SLEEVE, GALLBLADDER, APPENDECTOMY, CSECTION, COLONOSCOPY Surgeries: No (gastric sleeve) Section, Gallbladder Respiratory: No Cardiac: No Neurological: No Reproductive Disorders: 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 oz. 111.954677eu; 49.00 BMI Method:Stated General Appearance: No Apparent Distress, WD/WN HEENT: PERRL/EOMI, TMs Normal, Normal ENT Inspection, Pharynx Normal Neck: Full Range of Motion, Normal Inspection, Non Tender, Supple Respiratory: Chest Non Tender, Lungs Clear, Normal Breath Sounds, No Accessory Muscle Use Cardiovascular: Regular Rate, Rhythm, No Edema, No Gallop, No JVD Gastrointestinal: Normal Bowel Sounds, No Organomegaly, No Pulsatile Mass, Non Tender, Soft Extremity: Normal Capillary Refill, Normal Inspection, Normal Range of Motion, Non Tender Neurologic/Psychiatric: Alert, Oriented x3, No Motor/Sensory Deficits Skin: Normal Color, Warm/Dry (ELIZABETH PETERSON) Progress/Results/Core Measures Results/Orders Lab Results Laboratory Tests Test 08/17/21 20:55 08/17/21 21:03 Range/Units Urine Color YELLOW Urine Clarity CLOUDY Urine pH 6.5 5-9 Urine Specific [place] 1.020 1.016-1.022 Urine Protein NEGATIVE NEGATIVE Urine Glucose (UA) NEGATIVE NEGATIVE Urine Ketones NEGATIVE NEGATIVE Urine Nitrite NEGATIVE NEGATIVE Urine Bilirubin NEGATIVE NEGATIVE Urine Urobilinogen 0.2 < = 1.0 MG/DL Urine Leukocyte Esterase NEGATIVE NEGATIVE Urine RBC (Auto) NEGATIVE NEGATIVE Urine RBC NONE /HPF Urine WBC NONE /HPF Urine Squamous Epithelial Cells 5-10 /HPF Urine Crystals NONE /LPF Urine Bacteria LARGE H /HPF Urine Casts NONE /LPF Urine Mucus LARGE H /LPF Urine Culture Indicated YES Urine Test NEGATIVE NEGATIVE White Blood Count 6.6 4.3-11.0 10^3/uL Red Blood Count 4.76 3.80-5.11 10^6/uL Hemoglobin 13.0 11.5-16.0 g/dL Hematocrit 41 35-52 % Mean Corpuscular Volume 85 80-99 fL Mean Corpuscular Hemoglobin 27 25-34 pg Mean Corpuscular Hemoglobin Concent 32 32-36 g/dL Red Cell Distribution Width 13.2 10.0-14.5 % Platelet Count 246 130-400 10^3/uL Mean Platelet Volume 11.3 9.0-12.2 fL Immature Granulocyte % (Auto) 0 % Neutrophils (%) (Auto) 52 42-75 % Lymphocytes (%) (Auto) 40 12-44 % Monocytes (%) (Auto) 7 0-12 % Eosinophils (%) (Auto) 0 0-10 % Basophils (%) (Auto) 1 0-10 % Neutrophils # (Auto) 3.5 1.8-7.8 10^3/uL Lymphocytes # (Auto) 2.7 1.0-4.0 10^3/uL Monocytes # (Auto) 0.5 0.0-1.0 10^3/uL Eosinophils # (Auto) 0.0 0.0-0.3 10^3/uL Basophils # (Auto) 0.0 0.0-0.1 10^3/uL Immature Granulocyte # (Auto) 0.0 0.0-0.1 10^3/uL Sodium Level 137 135-145 MMOL/L Potassium Level 3.9 3.6-5.0 MMOL/L Chloride Level 105 98-107 MMOL/L Carbon Dioxide Level 21 21-32 MMOL/L Anion Gap 11 5-14 MMOL/L Blood Urea Nitrogen 7 7-18 MG/DL Creatinine 0.75 0.60-1.30 MG/DL Estimat Glomerular Filtration Rate 115 BUN/Creatinine Ratio 9 Glucose Level 84 70-105 MG/DL Calcium Level 9.0 8.5-10.1 MG/DL Corrected Calcium 8.9 8.5-10.1 MG/DL Magnesium Level 2.0 1.6-2.4 MG/DL Total Bilirubin 0.5 0.1-1.0 MG/DL Aspartate Amino Transf (AST/SGOT) 14 5-34 U/L Alanine Aminotransferase (ALT/SGPT) 14 0-55 U/L Alkaline Phosphatase 61 40-136 U/L Troponin I < 0.028 <0.028 NG/ML Total Protein 7.1 6.4-8.2 GM/DL Albumin 4.1 3.2-4.5 GM/DL (JOSE CHRISTIAN MD) My Orders Orders - JOSE CHRISTIAN MD Monitor-Rhythm Ecg Trace Only (08/17/21 19:55) (JOSE CHRISTIAN MD) Medications Given in ED Current Medications Medications Dose Ordered Sig/Catrachita Route Start Time Stop Time Status Last Admin Dose Admin Meclizine HCl 25 mg ONCE ONCE PO 08/17/21 20:45 08/17/21 20:46 DC 08/17/21 20:55 25 MG (JOSE CHRISTIAN MD) Vital Signs/I&O 08/17/21 08/17/21 20:36 21:57 Pulse 98 92 Resp 18 18 B/P (MAP) 148/96 (113) 146/91 Pulse Ox 97 100 O2 Delivery Room Air Room Air (JOSE CHRISTIAN MD) Blood Pressure Mean: 113 Departure Communication (PCP) Patient was not tachycardic or hypoxic. She had a CT angio in April that was unremarkable. No recent travels or surgeries, leg swelling or on control. EKG normal sinus rhythm. No evidence of ST elevation depression abnormal arrhythmia. Initial troponin negative. Lab work otherwise unremarkable. Chest pain substernal sharp without radiation. No abdominal pain vomiting. She states she had nausea dizziness with some urinary symptoms as well. She reports history of benign positional vertigo. Was given meclizine with improvement of dizziness. No focal neural deficits or neurological red flag findings. Patient with a low heart score. Chest x-ray was negative for pneumonia, pneumothorax. Heart palpitations have improved. She denies of any excessive caffeine use, energy drinks. Denies increased stress. She is scheduled to follow-up with GI tomorrow urology on for history of urinary tract infections. She did have some bacteria in her urine without significant UTI. She states she will follow-up with urology. Cultures pending. Was not treated at this time. Recommend outpatient follow-up discussed potential Holter monitor with pcp. If any worsening symptoms return back to ED. (ELIZABETH PETERSON) Impression Primary Impression: Chest pain Disposition: 01 HOME, SELF-CARE Condition: Stable Departure-Patient Inst. Referrals: [facility] (PCP) Primary Care Physician [facility] (Family) Primary Care Physician ANAYA PORTILLO MD Patient Instructions: Chest Pain, Adult ED Add. Discharge Instructions: Recommend follow-up with your primary care physician to discuss Holter monitor. All discharge instructions reviewed with patient and/or family. Voiced understanding. ATTENDING PHYSICIAN NOTE: I was physically present as attending physician in the emergency department during the care of this patient, but I was not directly involved in the decision making or delivery of care for this patient. (JOSE CHRISTIAN MD) ELIZABETH PETERSON August 17, 2021 20:47 JOSE CHRISTIAN MD August 18, 2021 05:21
[2021-08-17 21:03] LABS: BILIRUBIN,URINE NEGATIVE (NEGATIVE); CLARITY,URINE CLOUDY; COLOR,URINE YELLOW; GLUCOSE, URINE (UA) NEGATIVE (NEGATIVE); KETONES,URINE NEGATIVE (NEGATIVE); LEUKOCYTE ESTERASE ,URINE NEGATIVE (NEGATIVE); NITRITE,URINE NEGATIVE (NEGATIVE); PH,URINE 6.5 (5-9); PROTEIN,URINE NEGATIVE (NEGATIVE)
[2021-08-17 21:08] LABS: BASOPHILS % (AUTO) 1 % (0-10); EOSINOPHILS % (AUTO) 0 % (0-10); HEMATOCRIT 41 % (35-52); LYMPHOCYTES # (AUTO) 2.7 10^3/uL (1.0-4.0); LYMPHOCYTES % (AUTO) 40 % (12-44); MEAN CORPUSCULAR HEMOGLOBIN 27 pg (25-34); MEAN CORPUSCULAR HGB CONC 32 g/dL (32-36); MEAN CORPUSCULAR VOLUME 85 fL (80-99); MEAN PLATELET VOLUME 11.3 fL (9.0-12.2); MONOCYTES # (AUTO) 0.5 10^3/uL (0.0-1.0); MONOCYTES % (AUTO) 7 % (0-12); NEUTROPHILS # (AUTO) 3.5 10^3/uL (1.8-7.8); NEUTROPHILS % (AUTO) 52 % (42-75); PLATELET COUNT 246 10^3/uL (130-400); WHITE BLOOD COUNT 6.6 10^3/uL (4.3-11.0)
[2021-08-17 21:19] LABS: BACTERIA,URINE LARGE /HPF
--- NOTE | 2021-08-17 21:31 | Diagnostic Imaging Report ---
INDICATION: Nausea, dizziness, palpitations, weakness.. TECHNIQUE: Single view chest 9:26 PM. CORRELATION STUDY: 05/11/2021 FINDINGS: The heart size, mediastinal configuration and pulmonary vascularity are within normal limits. The lungs are clear with no consolidating infiltrate. There is no significant effusion or pneumothorax. IMPRESSION: 1. Negative appearing single view chest. Dictated by: Dictated on workstation # [id number]
[2021-08-17 21:32] LABS: ALBUMIN 4.1 GM/DL (3.2-4.5); POTASSIUM 3.9 MMOL/L (3.6-5.0)
[2021-08-17 21:34] LABS: TOTAL PROTEIN 7.1 GM/DL (6.4-8.2)
[2021-08-17 21:36] LABS: BILIRUBIN,TOTAL 0.5 MG/DL (0.1-1.0)
[2021-08-17 21:38] LABS: CREATININE SERUM 0.75 MG/DL (0.60-1.30)
== END 2021-08-17 22:28 | disposition home or self-care (01) ==
LOC: EDUNIT# 19:13 → ER 19:17
DX: R07.89 Other chest pain (principal); Z32.02 Encounter for pregnancy test, result negative
CPT/HCPCS: 36415; 71045; 80053; 81000; 83735; 84484; 84703; 85025; 87088; 93005; 93041

== ENCOUNTER 2021-09-22 19:18 | Emergency (ER) | payer MEDICAID ==
[~2021-09-22] VITALS: Ht 162 cm; Wt 126.0 kg
[2021-09-22 19:30] VITALS: BP 140/107
--- NOTE | 2021-09-22 19:42 | ED General ---
General Chief Complaint: Cardiac/General Problems Stated Complaint: CHEST PAIN, NAUSEA Nursing Triage Note: PT PRESENTS WITH C/O HEART PALPITATIONS WITH CHEST PAIN AND NAUSEA THAT BEGAN 1.5 HOURS AGO Source of Information: Patient Exam Limitations: No Limitations History of Present Illness Date Seen by Provider: Sep 22, 2021 Time Seen by Provider: 19:31 Initial Comments Patient is a 25-year-old female who presents to the emergency department today with a chief complaint of feeling palpitations over the course of the last few hours at home and chest discomfort with nausea. She feels lightheaded and dizzy. She had a similar episode a couple of days ago but it did not last this long. She has a history of Jake's thyroiditis, she has been on the same dose of levothyroxine since approximately May 2020. She states she is in the process of trying to find a new float tender. She cannot recall the last time her thyroid levels have been checked. She states that she is always cold. She is nauseous. No diarrhea. She had COVID on September 09. No current fevers chills, URI symptoms. No productive cough. No shortness of breath. No diarrhea. No urinary complaints. She had a Depo-Provera shot in March 2021 and did not get a repeat in June. She thinks she might be trying to start her period as she has noted a little clear pinkish discharge in the last couple of days. She is sexually active. She states she took a home test 3 days ago and it was negative. No gulk-ekt-fxyiazy stimulants or supplements other than possibly elderberry. All other review of systems reviewed and negative except as stated Timing/Duration: 4-6 Hours Severity: Moderate Modifying Factors: worse with Movement; improves with Rest Associated Systoms: Nausea/Vomiting, Weakness, Other (dizzy) Allergies and Home Medications Allergies Coded Allergies: Penicillins (Verified Allergy, Unknown, 12/08/18) pt states she is not sure if she has ever had a reaction, but states her mom is allergic to penicillin so she was told to list it as an allergy codeine (Verified Allergy, Unknown, 09/22/21) promethazine (Verified Allergy, Unknown, 09/22/21) Patient Home Medication List Home Medication List Reviewed: Yes Alprazolam (Xanax) 0.25 Mg Tablet, 0.25 MG PO BID PRN for ANXIETY Prescribed by: TEMITOPE DUENAS on 07/02/19 2200 Cefdinir (Cefdinir) 300 Mg Capsule, 300 MG PO BID Prescribed by: TEMITOPE DUENAS on 05/28/21 110 Cephalexin (Cephalexin) 500 Mg Capsule, (Reported) Entered as Reported by: IVAN TRACEY on 05/28/21 1035 Dicyclomine HCl (Dicyclomine HCl) 20 Mg Tablet, 20 MG PO Q6H PRN for abdominal cramping Prescribed by: MINH RENO on 06/08/21 1721 Fluconazole (Diflucan) 150 Mg Tablet, 150 MG PO DAILY Prescribed by: TEMITOPE DUENAS on 05/28/21 1109 Medroxyprogesterone Acetate (Depo-Provera) 150 Mg/1 Ml Vial, (Reported) Entered as Reported by: IVAN TRACEY on 05/28/21 1035 Naproxen (Naproxen) 500 Mg Tablet, (Reported) Entered as Reported by: BRANDEE ALCANTARA on 03/06/19 0914 Ondansetron (Ondansetron Odt) 8 Mg Tab.rapdis, 8 MG PO Q8H PRN for nausea Prescribed by: MINH RENO on 06/08/21 1721 Review of Systems Review of Systems Constitutional: see HPI EENTM: no symptoms reported Respiratory: no symptoms reported Cardiovascular: no symptoms reported Gastrointestinal: nausea Genitourinary: no symptoms reported Musculoskeletal: no symptoms reported Skin: no symptoms reported Psychiatric/Neurological: Other (dizziness) All Other Systems Reviewed Negative Unless Noted: Yes Past Mhfuqjw-Otjsgv-Tmireq Hx Patient Social History Tobacco Use?: No Substance use?: Yes Substance type: Marijuana Alcohol Use?: No Immunizations Up To Date Tetanus Booster (TDap): Less than 5yrs PED Vaccines UTD: No Influenza Vaccine Up-to-Date: Yes; Up-to-Date First/Initial COVID19 Vaccinat: unknown date Second COVID19 Vaccination Nacho: unknown date Third COVID19 Vaccination Date: UNKNOWN DATE Past Medical History Surgery/Hospitalization HX: GASTRIC SLEEVE, GALLBLADDER, APPENDECTOMY, CSECTION, COLONOSCOPY Surgeries: No (gastric sleeve) Section, Gallbladder Respiratory: No Cardiac: No Neurological: No 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 oz. 111.799194ey; 48.00 BMI Method:Stated General Appearance: WD/WN, Obese Eyes: Bilateral Eye Normal Inspection, Bilateral Eye PERRL, Bilateral Eye EOMI HEENT: PERRL/EOMI Neck: Normal Inspection Respiratory: Lungs Clear, Normal Breath Sounds, No Accessory Muscle Use, No Respiratory Distress Cardiovascular: Regular Rate, Rhythm (101), Normal Peripheral Pulses Gastrointestinal: Normal Bowel Sounds, Non Tender, Soft Extremity: Normal Capillary Refill, Normal Inspection, Normal Range of Motion, Non Tender, No Calf Tenderness, No Pedal Edema Neurologic/Psychiatric: Alert, Oriented x3, No Motor/Sensory Deficits, Depressed Affect (tearful), Other (no nystagmus) Skin: Normal Color, Warm/Dry Progress/Results/Core Measures Suspected Sepsis SIRS Temperature: Pulse: 103 Respiratory Rate: 18 Laboratory Tests 09/22/21 19:50: White Blood Count 8.2 Blood Pressure 140 /107 Mean: 93 Laboratory Tests 09/22/21 19:50: Creatinine 0.74, Platelet Count 248 Results/Orders Lab Results Laboratory Tests Test 09/22/21 19:50 09/22/21 21:50 Range/Units White Blood Count 8.2 4.3-11.0 10^3/uL Red Blood Count 4.38 3.80-5.11 10^6/uL Hemoglobin 11.9 11.5-16.0 g/dL Hematocrit 37 35-52 % Mean Corpuscular Volume 85 80-99 fL Mean Corpuscular Hemoglobin 27 25-34 pg Mean Corpuscular Hemoglobin Concent 32 32-36 g/dL Red Cell Distribution Width 13.1 10.0-14.5 % Platelet Count 248 130-400 10^3/uL Mean Platelet Volume 11.1 9.0-12.2 fL Immature Granulocyte % (Auto) 0 % Neutrophils (%) (Auto) 52 42-75 % Lymphocytes (%) (Auto) 39 12-44 % Monocytes (%) (Auto) 8 0-12 % Eosinophils (%) (Auto) 0 0-10 % Basophils (%) (Auto) 1 0-10 % Neutrophils # (Auto) 4.2 1.8-7.8 10^3/uL Lymphocytes # (Auto) 3.2 1.0-4.0 10^3/uL Monocytes # (Auto) 0.7 0.0-1.0 10^3/uL Eosinophils # (Auto) 0.0 0.0-0.3 10^3/uL Basophils # (Auto) 0.0 0.0-0.1 10^3/uL Immature Granulocyte # (Auto) 0.0 0.0-0.1 10^3/uL Sodium Level 141 135-145 MMOL/L Potassium Level 3.7 3.6-5.0 MMOL/L Chloride Level 110 H 98-107 MMOL/L Carbon Dioxide Level 21 21-32 MMOL/L Anion Gap 10 5-14 MMOL/L Blood Urea Nitrogen 7 7-18 MG/DL Creatinine 0.74 0.60-1.30 MG/DL Estimat Glomerular Filtration Rate 117 BUN/Creatinine Ratio 9 Glucose Level 85 70-105 MG/DL Calcium Level 8.9 8.5-10.1 MG/DL Thyroid Stimulating Hormone (TSH) 1.57 0.35-4.94 UIU/ML Free Thyroxine 1.05 0.70-1.48 NG/DL Urine Test NEGATIVE NEGATIVE My Orders Orders - MINH RENO MD Ed Iv/Invasive Line Start (09/22/21 19:42) Ekg Tracing (09/22/21 19:42) Cbc With Automated Diff (09/22/21 19:42) Hcg,Qualitative Urine (09/22/21 19:42) Basic Metabolic Panel (09/22/21 19:42) Thyroid Stimulating Hormone (09/22/21 19:42) Free T4 (Free Thyroxine) (09/22/21 19:42) Ns Iv 1000 Ml (Sodium Chloride 0.9%) (09/22/21 19:45) Meclizine Tablet (Antivert Tablet) (09/22/21 19:45) Ondansetron Injection (Zofran Injectio (09/22/21 19:45) Ua Culture If Indicated (09/22/21 22:04) Medications Given in ED Current Medications Medications Dose Ordered Sig/Catrachita Route Start Time Stop Time Status Last Admin Dose Admin Meclizine HCl 25 mg ONCE ONCE PO 09/22/21 19:45 09/22/21 19:46 DC 09/22/21 19:54 25 MG Ondansetron HCl 4 mg ONCE ONCE IVP 09/22/21 19:45 09/22/21 19:46 DC 09/22/21 19:54 4 MG Vital Signs/I&O 09/22/21 09/22/21 09/22/21 09/22/21 19:30 19:36 20:23 20:54 Pulse 103 96 89 85 Resp 18 18 18 18 B/P (MAP) 140/107 (118) 133/74 150/66 140/81 Pulse Ox 100 100 100 100 O2 Delivery Room Air Room Air Room Air Room Air Capillary Refill : Less Than 3 Seconds Blood Pressure Mean: 93 Progress Note : Time: 23:21 Progress Note Patient seen and evaluated, chief complaint of palpitations, nausea and generally not feeling well. No significant findings on physical examination or laboratory work-up. Her vitals have been stable as long as she is laying down without any activity her heart rate rests in the 80s. She does get a little tachycardic when up and about. She was fluid resuscitated with 1 L of normal saline. Reassurance provided that there is no evidence of infection or acute need for hospitalization. I recommended follow-up with her primary care physician as well as Dr. Keys her delivery professional. She states that he told her she was too young to be placed on beta-blockers. She had canceled an appointment but states that she will reschedule. No clinical or objective findings to warrant further work-up from the emergency department. Continue Zofran, continue oral fluids. Return precautions discussed. All questions are sought and answered Departure Impression Primary Impression: Palpitations Disposition: 01 HOME, SELF-CARE Condition: Stable Departure-Patient Inst. Decision time for Depature: 23:23 Referrals: [facility] [place] (PCP) Primary Care Physician [facility] (Family) Primary Care Physician Patient Instructions: Palpitations Add. Discharge Instructions: Drink lots of fluids to stay well-hydrated. Monitor yourself for fever, worsening palpitations, pain, vomiting. Return to the emergency department for any new, concerning or emergent complaints. Please follow-up tomorrow with [facility] as well as Dr. Keys. Scripts Ondansetron (Ondansetron Odt) 4 Mg Tab.rapdis 4 MG PO Q8H PRN for NAUSEA/VOMITING, #20 TAB 0 Refills Prov: MINH RENO MD 09/22/21 Copy Copies To 1: VALENTIN TSE KATHRYN M MD Sep 22, 2021 19:41
[2021-09-22] MEDS ORDERED: ONDANSETRON 4 MG/2 ML (SDV) Z0FRAN IVP ONE (19:45)
[2021-09-22] MEDS ORDERED: NS IV 1000 ML 1,000 ML IV SCH (19:45)
[2021-09-22] MEDS ORDERED: MECLIZINE 25 MG (ANTIVERT) TAB PO ONE (19:45)
[2021-09-22 19:59] LABS: BASOPHILS % (AUTO) 1 % (0-10); EOSINOPHILS % (AUTO) 0 % (0-10); HEMATOCRIT 37 % (35-52); HEMOGLOBIN 11.9 g/dL (11.5-16.0); LYMPHOCYTES # (AUTO) 3.2 10^3/uL (1.0-4.0); LYMPHOCYTES % (AUTO) 39 % (12-44); MEAN CORPUSCULAR HEMOGLOBIN 27 pg (25-34); MEAN CORPUSCULAR HGB CONC 32 g/dL (32-36); MEAN CORPUSCULAR VOLUME 85 fL (80-99); MEAN PLATELET VOLUME 11.1 fL (9.0-12.2); MONOCYTES # (AUTO) 0.7 10^3/uL (0.0-1.0); MONOCYTES % (AUTO) 8 % (0-12); NEUTROPHILS # (AUTO) 4.2 10^3/uL (1.8-7.8); NEUTROPHILS % (AUTO) 52 % (42-75); PLATELET COUNT 248 10^3/uL (130-400); WHITE BLOOD COUNT 8.2 10^3/uL (4.3-11.0)
[2021-09-22 20:26] LABS: CALCIUM 8.9 MG/DL (8.5-10.1); CREATININE SERUM 0.74 MG/DL (0.60-1.30)
[2021-09-22 20:48] LABS: FREE T4 (FREE THYROXINE) 1.05 NG/DL (0.70-1.48)
[2021-09-22 21:02] LABS: POTASSIUM 3.7 MMOL/L (3.6-5.0)
[2021-09-22 22:50] LABS: BILIRUBIN,URINE NEGATIVE (NEGATIVE); CLARITY,URINE SL CLOUDY; COLOR,URINE YELLOW; GLUCOSE, URINE (UA) NEGATIVE (NEGATIVE); KETONES,URINE NEGATIVE (NEGATIVE); LEUKOCYTE ESTERASE ,URINE NEGATIVE (NEGATIVE); NITRITE,URINE NEGATIVE (NEGATIVE); PH,URINE 6.5 (5-9); PROTEIN,URINE NEGATIVE (NEGATIVE)
[2021-09-22 23:20] LABS: BACTERIA,URINE MODERATE /HPF; WBC,URINE 0-2 /HPF
[2021-09-22] MEDS ORDERED: ONDA4TAB11 PO (23:24)
== END 2021-09-22 23:29 | disposition home or self-care (01) ==
LOC: EDUNIT# 19:18 → ER 19:21
DX: R00.2 Palpitations (principal); R00.0 Tachycardia, unspecified; R11.0 Nausea; Z97.5 Presence of (intrauterine) contraceptive device; Z86.16 Personal history of COVID-19; Z32.02 Encounter for pregnancy test, result negative
CPT/HCPCS: 36415; 80048; 81000; 84439; 84443; 84703; 85025; 87088; 93005

== ENCOUNTER 2021-10-05 15:49 | Emergency (ER) | payer MEDICAID ==
[~2021-10-05] VITALS: Ht 152.5 cm; Wt 125.6 kg
--- NOTE | 2021-10-05 17:41 | ED EENT ---
History of Present Illness General Chief Complaint: Dental Problems/Pain Stated Complaint: R SIDE JAW PAIN Nursing Triage Note: PT AMB TO ED BY POV WITH C/O R JAW PAIN. PT REPORTS SHE WOKE UP FROM A NAP AT 1430 WITH SEVERE JAW PAIN. REPORTS NO PAIN PRIOR TO NAP. PT IS CRYING UPON ARRIVAL, REPORTS IT HURTS TO TALK. DENIES ANY OTHER SX AT THIS TIME. PT TOOK ALIEVE AT 1434 AND TYLENOL AT 1503. Source: patient Exam Limitations: no limitations History of Present Illness Date Seen by Provider: Oct 05, 2021 Time Seen by Provider: 17:35 Initial Comments This is a well-appearing 26-year-old female who presented the ER with complaints of right lower jaw pain that started upon awakening from a nap this afternoon. States around 1430 this afternoon she woke with sudden onset of severe jaw pain. She had no pain or issues prior to her nap. States that she is having significant pain that radiates up into her ear. She is having difficulty time talking. She does have a broken tooth that is very sensitive, she made a follow-up appointment with her dentist that is scheduled tomorrow. She took Aleve at 1434 and Tylenol at 1503 however she is still having significant pain. No fever, chills, nausea, vomiting, abdominal pain. Allergies and Home Medications Allergies Coded Allergies: Penicillins (Verified Allergy, Unknown, 12/08/18) pt states she is not sure if she has ever had a reaction, but states her mom is allergic to penicillin so she was told to list it as an allergy codeine (Verified Allergy, Unknown, 09/22/21) promethazine (Verified Allergy, Unknown, 09/22/21) Patient Home Medication List Home Medication List Reviewed: Yes Alprazolam (Xanax) 0.25 Mg Tablet, 0.25 MG PO BID PRN for ANXIETY Prescribed by: TEMITOPE DUENAS on 07/02/19 2200 Cefdinir (Cefdinir) 300 Mg Capsule, 300 MG PO BID Prescribed by: TEMITOPE DUENAS on 05/28/21 1109 Cephalexin (Cephalexin) 500 Mg Capsule, (Reported) Entered as Reported by: IVAN TRACEY on 05/28/21 1035 Clindamycin HCl (Clindamycin HCl) 300 Mg Capsule, 300 MG PO TID Prescribed by: SOHAM CHAPIN on 10/05/21 1809 Dicyclomine HCl (Dicyclomine HCl) 20 Mg Tablet, 20 MG PO Q6H PRN for abdominal cramping Prescribed by: MINH RENO on 06/08/21 172 Fluconazole (Diflucan) 150 Mg Tablet, 150 MG PO DAILY Prescribed by: TEMITOPE DUENAS on 05/28/21 1109 Medroxyprogesterone Acetate (Depo-Provera) 150 Mg/1 Ml Vial, (Reported) Entered as Reported by: IVAN TRACEY on 05/28/21 1035 Naproxen (Naproxen) 500 Mg Tablet, (Reported) Entered as Reported by: BRANDEE ALCANTARA on 03/06/19 0914 Ondansetron (Ondansetron Odt) 8 Mg Tab.rapdis, 8 MG PO Q8H PRN for nausea Prescribed by: MINH RENO on 06/08/21 1721 Ondansetron (Ondansetron Odt) 4 Mg Tab.rapdis, 4 MG PO Q8H PRN for NAUSEA/VOMITING Prescribed by: MINH RENO on 09/22/21 2324 Review of Systems Review of Systems Constitutional: no symptoms reported Eyes: No Symptoms Reported Ears: See HPI Nose: no symptoms reported Mouth: see HPI Throat: no symptoms reported Respiratory: no symptoms reported Cardiovascular: no symptoms reported Gastrointestinal: no symptoms reported Musculoskeletal: no symptoms reported Skin: no symptoms reported Hematologic/Lymphatic: No Symptoms Reported Past Elfprkt-Xjagep-Pdhkcx Hx Patient Social History Tobacco Use?: No Use of E-Cig and/or Vaping dev: No Substance use?: No Alcohol Use?: No Pt feels they are or have been: No Immunizations Up To Date Tetanus Booster (TDap): Less than 5yrs PED Vaccines UTD: No Influenza Vaccine Up-to-Date: No; Not Current First/Initial COVID19 Vaccinat: 2020 Second COVID19 Vaccination Nacho: 2020 Third COVID19 Vaccination Date: 2020 COVID19 Vaccine 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 Past Medical History Surgery/Hospitalization HX: GASTRIC SLEEVE, CHOLECYSTECTOMY, APPENDECTOMY, CSECTION, COLONOSCOPY HASHIMOTOS, CELIAC Surgeries: No (gastric sleeve) Section, Gallbladder Respiratory: No Cardiac: No Neurological: No Reproductive Disorders: No 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 oz. 111.753189sp; 54.00 BMI Method:Stated General Appearance: WD/WN, no apparent distress Eyes: bilateral eye normal inspection, bilateral eye PERRL, bilateral eye EOMI Ears: bilateral ear auricle normal, bilateral ear canal normal, bilateral ear TM normal Nose: normal inspection; No discharge Mouth/Throat: normal mouth inspection, pharynx normal, dental tenderness (Right lower tooth border.); No excessive drooling, No foreign body, No mandibular swelling, No trismus, No uvula swelling, No voice changes Neck: non-tender, full range of motion, supple, normal inspection Cardiovascular: regular rate, rhythm, no murmur Respiratory: lungs clear, normal breath sounds Gastrointestinal: normal bowel sounds, non tender, soft Neurologic/Psychiatric: no motor/sensory deficits, alert, normal mood/affect, oriented x 3 Skin: normal color, warm/dry Progress/Results/Core Measures Results/Orders My Orders Orders - SOHAM CHAPIN APRN Ketorolac Injection (Toradol Injection) (10/05/21 17:45) Hydrocodone/Apap 5/325 Tablet (Lortab 5 (10/05/21 17:45) Clindamycin Capsule (Cleocin Capsule) (10/05/21 17:45) Rx-Hydrocodone/Apap 5-325 Mg (Rx-Vicodin (10/05/21 18:15) Vital Signs/I&O Departure Impression Primary Impression: Pain, dental Additional Impression: Cracked tooth Disposition: HOME, SELF-CARE Condition: Stable Departure-Patient Inst. Decision time for Depature: 18:06 Referrals: KIP PRADO MD FACP [facility] (PCP) Primary Care Physician Patient Instructions: Dental Pain ED Add. Discharge Instructions: Plan: 1. Keep follow up tomorrow with your dentist as scheduled. 2. Take antibiotics and pain medication as directed and complete full course. 3. May take Ibuprofen as needed for pain 600mg every 6 hours. Take with food. 4. Return for any new, concerning, or worsening symptoms. All discharge instructions reviewed with patient and/or family. Voiced understanding. Scripts Clindamycin HCl (Clindamycin HCl) 300 Mg Capsule 300 MG PO TID, #21 CAP 0 Refills Prov: SOHAM CHAPIN APRN 10/05/21 SOHAM CHAPIN APRN Oct 05, 2021 17:41
[2021-10-05] MEDS ORDERED: HYDROcodone/APAP 5 MG/325 MG (LORTAB) TAB PO ONE (17:45)
[2021-10-05] MEDS ORDERED: CLINDAMYCIN 150 MG (CLEOCIN) CAP PO ONE (17:45)
[2021-10-05] MEDS ORDERED: KETOROLAC 60 MG/2 ML VIAL IM ONE (17:45)
[2021-10-05] MEDS ORDERED: CLIN-144 PO (18:09)
[2021-10-05 18:18] VITALS: BP 162/84
== END 2021-10-05 18:18 | disposition home or self-care (01) ==
LOC: EDUNIT# 15:49 → ER 15:54
DX: K03.81 Cracked tooth (principal)
CPT/HCPCS: 99284

== ENCOUNTER 2021-10-11 09:59 | Emergency (ER) | payer MEDICAID ==
[~2021-10-11] VITALS: Ht 162 cm; Wt 125.0 kg
[~2021-10-11 09:59] MED LIST changes: +CLIN-144 PO
[2021-10-11 10:10] VITALS: BP 119/86
[2021-10-11] MEDS ORDERED: HYDROcodone/APAP 7.5 MG/325 MG (LORTAB, LORCET PLUS) TABLET PO ONE (11:15)
[2021-10-11] MEDS ORDERED: ACHD5005 PO (11:19)
--- NOTE | 2021-10-11 11:20 | ED General ---
General Chief Complaint: Dental Problems/Pain Stated Complaint: DENTAL PAIN Nursing Triage Note: PT TO ED W/ C/O DENTAL PAIN X1 WK. PT REPORTS WAS SEEN LAST WEEK IN THIS ED FOR SAME C/O ET TREATED W/ PAIN MEDS AT THAT TIME. PT STATES SHE F/U W/ HER DENTIST THE NEXT DAY ET THE TOOTH WAS PULLED AT THAT TIME. PT STATES PAIN DID NOT IMPROVE ET WAS SEEN AGAIN ON TUESDAY FOR SAME C/O ET DX W/ DRY SOCKET WHICH WAS PACKED BY HER DENTIST AT THAT TIME. PT CONTINUES TO DENY IMPROVEMENT OF PAIN AT THIS TIME. PT ALSO C/O SORE THROAT BUT REPORTS HER STREP ET COVID WERE "NEGATIVE AT THE URGENT CARE IN [place] LAST TUESDAY". Source of Information: Patient Exam Limitations: No Limitations (CAROLYN MORRISSEY) History of Present Illness Date Seen by Provider: Oct 11, 2021 Time Seen by Provider: 11:14 Initial Comments This is a 26-year-old female who presents to the emergency room for evaluation of right lower dental pain. She states that she has been having pain for little over 1 week and that her dentist recently extracted one of her premolars. She states that they started her on clindamycin but the pain has been persistent since the procedure. The dentist did put in a packing which is still present. The patient has been taking Tylenol and ibuprofen without symptomatic relief. She denies any fever, swelling, headache, blurry vision or difficulty swallowing. Timing/Duration: 1 Week Severity: Moderate (CAROLYN MORRISSEY) Allergies and Home Medications Allergies Coded Allergies: Penicillins (Verified Allergy, Unknown, 12/08/18) pt states she is not sure if she has ever had a reaction, but states her mom is allergic to penicillin so she was told to list it as an allergy codeine (Verified Allergy, Unknown, 09/22/21) promethazine (Verified Allergy, Unknown, 09/22/21) Patient Home Medication List Home Medication List Reviewed: Yes (CAROLYN MORRISSEY) Alprazolam (Xanax) 0.25 Mg Tablet, 0.25 MG PO BID PRN for ANXIETY Prescribed by: TEMITOPE DUENAS on 07/02/19 2200 Cefdinir (Cefdinir) 300 Mg Capsule, 300 MG PO BID Prescribed by: TEMITOPE DUENAS on 05/28/21 1109 Cephalexin (Cephalexin) 500 Mg Capsule, (Reported) Entered as Reported by: IVAN TRACEY on 05/28/21 1035 Clindamycin HCl (Clindamycin HCl) 300 Mg Capsule, 300 MG PO TID Prescribed by: SOHAM CHAPIN on 10/05/21 1809 Dicyclomine HCl (Dicyclomine HCl) 20 Mg Tablet, 20 MG PO Q6H PRN for abdominal cramping Prescribed by: MINH RENO on 06/08/21 1721 Fluconazole (Diflucan) 150 Mg Tablet, 150 MG PO DAILY Prescribed by: TEMITOPE DUENAS on 05/28/21 1109 Hydrocodone/Acetaminophen (Hydrocodone-Acetamin 5-325 mg) 5 Mg-325 Mg Tablet, 1 TAB PO Q4H PRN for PAIN-MODERATE (5-7) Prescribed by: William Morrissey on 10/11/21 1119 Medroxyprogesterone Acetate (Depo-Provera) 150 Mg/1 Ml Vial, (Reported) Entered as Reported by: IVAN TRACEY on 05/28/21 1035 Naproxen (Naproxen) 500 Mg Tablet, (Reported) Entered as Reported by: BRANDEE ALCANTARA on 03/06/19 0914 Ondansetron (Ondansetron Odt) 8 Mg Tab.rapdis, 8 MG PO Q8H PRN for nausea Prescribed by: MINH RENO on 06/08/21 1721 Ondansetron (Ondansetron Odt) 4 Mg Tab.rapdis, 4 MG PO Q8H PRN for NAUSEA/VOMITING Prescribed by: MINH RENO on 09/22/21 2324 Review of Systems Review of Systems Constitutional: no symptoms reported EENTM: other (Abdominal pain) Respiratory: no symptoms reported Cardiovascular: no symptoms reported Gastrointestinal: no symptoms reported Genitourinary: no symptoms reported Musculoskeletal: no symptoms reported (CAROLYN MORRISSEY) Past Kcgotgs-Nmqqot-Jvxcck Hx Immunizations Up To Date Tetanus Booster (TDap): Less than 5yrs PED Vaccines UTD: No First/Initial COVID19 Vaccinat: 2020 Second COVID19 Vaccination [place]: 2020 Third COVID19 Vaccination Date: 2020 (CAROLYN MORRISSEY) Past Medical History Surgery/Hospitalization HX: GASTRIC SLEEVE, CHOLECYSTECTOMY, APPENDECTOMY, CSECTION, COLONOSCOPY HASHIMOTOS, CELIAC Surgeries: No (gastric sleeve) Section, Gallbladder Respiratory: No Cardiac: No Neurological: No 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 oz. 111.544683lv; 47.00 BMI Method:Stated General Appearance: No Apparent Distress, WD/WN Eyes: Bilateral Eye Normal Inspection, Bilateral Eye PERRL, Bilateral Eye EOMI HEENT: PERRL/EOMI, TMs Normal, Normal ENT Inspection, Pharynx Normal, Other (Recent dental extraction of the right first premolar. Mild erythema to the periapical recess. No significant swelling noted. No active drainage or overlying facial cellulitis.) Neck: Full Range of Motion Respiratory: Chest Non Tender, Lungs Clear Cardiovascular: Regular Rate, Rhythm Gastrointestinal: Non Tender, Soft Neurologic/Psychiatric: Alert, Oriented x3, nutrition club ambassador II-XII Norm as Tested (CAROLYN MORRISSEY) Progress/Results/Core Measures Suspected Sepsis SIRS Temperature: Pulse: 102 Respiratory Rate: 20 Blood Pressure 119 /86 Mean: 97 (CAROLYN MORRISSEY) Results/Orders Medications Given in ED Current Medications Medications Dose Ordered Sig/Catrachita Route Start Time Stop Time Status Last Admin Dose Admin Acetaminophen/ Hydrocodone Bitart 1 ea ONCE ONCE PO 10/11/21 11:15 10/11/21 11:16 DC 10/11/21 11:20 1 EA (JOSE CHRISTIAN MD) Vital Signs/I&O 10/11/21 10:10 Temp 36.7 Pulse 102 Resp 20 B/P (MAP) 119/86 (97) Pulse Ox 100 O2 Delivery Room Air (JOSE CHRISTIAN MD) Vital Signs/I&O Capillary Refill : Less Than 3 Seconds (CAROLYN MORRISSEY) Blood Pressure Mean: 97 Departure Communication (Admissions) Patient is afebrile, nontoxic and in no distress. There is no evidence or suspi cion of a periapical abscess, submandibular abscess, retropharyngeal abscess or other emergent condition. There may be some component of dry socket but I recommended patient see her dentist tomorrow for further treatment since it is currently packed. We will continue the antibiotics that she is currently on and also add a light pain reliever. Patient was counseled to not take Tylenol in conjunction with the hydrocodone with acetaminophen. We discussed detailed home care and return precautions and she is in agreement to the care plan. (CAROLYN MORRISSEY) Impression Primary Impression: Pain, dental Disposition: 01 HOME, SELF-CARE Condition: Stable Departure-Patient Inst. Decision time for Depature: 11:18 (CAROLYN MORRISSEY) Referrals: [facility] [place] (PCP) Primary Care Physician LANA JASMINE (Family) Primary Care Physician Patient Instructions: Dental Pain (DC) Add. Discharge Instructions: Please follow-up with your dentist tomorrow as discussed All discharge instructions reviewed with patient and/or family. Voiced und erstanding. Scripts Hydrocodone/Acetaminophen (Hydrocodone-Acetamin 5-325 mg) 5 Mg-325 Mg Tablet 1 TAB PO Q4H PRN for PAIN-MODERATE (5-7), #12 TAB Prov: CAROLYN MORRISSEY 10/11/21 ATTENDING PHYSICIAN NOTE: I was physically present as attending physician in the emergency department during the care of this patient, but I was not directly involved in the decision making or delivery of care for this patient. (JOSE CHRISTIAN MD) CAROLYN MORRISSEY Oct 11, 2021 11:20 JOSE CHRISTIAN MD Oct 11, 2021 19:33
== END 2021-10-11 11:23 | disposition home or self-care (01) ==
LOC: EDUNIT# 09:59 → ER 10:01
DX: K08.89 Other specified disorders of teeth and supporting structures (principal)
CPT/HCPCS: 99283

== ENCOUNTER → 2021-10-13 | Outpatient (CLI) | payer MEDICAID ==
[~2021-10-13] MED LIST changes: +ACHD5005 PO; +ATROPINE INJECTION 1 MG/10 ML SYR (ABBOTT) ONE; +NS IV 1000 ML 0 ML ONE; +NS IV 1000 ML 1,000 ML IV SCH
== END ==
LOC: CARD 08:00
PROVIDERS: ATTEND Internal Medicine Cardiovascular Disease
DX: R55 Syncope and collapse (principal); R00.2 Palpitations
CPT/HCPCS: 93225; 93226

== ENCOUNTER 2021-11-03 01:23 | Emergency (ER) | payer MEDICAID ==
[~2021-11-03 01:23] MED LIST changes: -ATROPINE INJECTION 1 MG/10 ML SYR (ABBOTT) ONE; -NS IV 1000 ML 0 ML ONE; -NS IV 1000 ML 1,000 ML IV SCH
[2021-11-03 01:45] VITALS: BP 154/76
[2021-11-03] MEDS ORDERED: ACETAMINOPHEN 500 MG TAB (TYLENOL) PO ONE (02:00)
[2021-11-03] MEDS ORDERED: PROCHLORPERAZINE 10 MG/2ML INJ (COMPAZINE) IM ONE (02:00)
[2021-11-03] MEDS ORDERED: diphenhydrAMINE 50 MG/ML INJ (BENADRYL) IM ONE (02:00)
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
[2021-11-03 02:45] LABS: CLARITY,URINE CLEAR; COLOR,URINE YELLOW; GLUCOSE, URINE (UA) NEGATIVE (NEGATIVE); KETONES,URINE 1+ (NEGATIVE); LEUKOCYTE ESTERASE ,URINE NEGATIVE (NEGATIVE); NITRITE,URINE NEGATIVE (NEGATIVE); PROTEIN,URINE NEGATIVE (NEGATIVE)
[2021-11-03 02:53] LABS: BACTERIA,URINE TRACE /HPF; BILIRUBIN,URINE 1+ (NEGATIVE); SQUAMOUS EPITHELIAL CELL,UR 25-50 /HPF
[2021-11-03] MEDS ORDERED: PANTOPRAZOLE 40 MG (PROTONIX) TAB PO ONE (03:15)
[2021-11-03] MEDS ORDERED: KETOROLAC 30 MG/ML VIAL IM ONE (03:15)
== END 2021-11-03 03:24 | disposition home or self-care (01) ==
LOC: EDUNIT# 01:23 → ER 01:26
DX: R51.9 Headache, unspecified (principal); E11.9 Type 2 diabetes mellitus without complications
CPT/HCPCS: 81000; 82947

== ENCOUNTER 2021-11-12 10:08 | Emergency (ER) | payer MEDICAID ==
[~2021-11-12] VITALS: Ht 162.5 cm; Wt 122.4 kg
--- NOTE | 2021-11-12 10:49 | ED General ---
General Chief Complaint: General Problems/Pain Stated Complaint: BODYACHE - SOA - ABD PAIN - BACK PAIN Nursing Triage Note: pt amb to rm 8 with c/o abd and back pain, n, and body aches since 11/11/21. denies fever Source of Information: Patient Exam Limitations: No Limitations History of Present Illness Date Seen by Provider: Nov 12, 2021 Time Seen by Provider: 10:42 Initial Comments Patient is a 26-year-old female who presents to the emergency department today with a chief complaint of myalgias, a little shortness of breath, mild runny nose and subjective fever onset yesterday. She endorses a little epigastric discomfort and some low back pain. She denies dysuria, urgency or frequency. No vomiting. She did have some cheese and crackers this morning. No black or bloody stools. No vomiting. She is COVID vaccinated, Moderna with a Moderna booster. She states that she had COVID in August. She is not sure if she has been around anybody else with COVID She took some ibuprofen for her symptoms last night and believes that it may have helped. She has had gastric sleeve surgery and has problems with acid reflux. She is on Protonix daily. She was diagnosed with a left otitis media yesterday and is on day 2 of azithromycin. All other review of systems reviewed and negative except as stated Timing/Duration: 1-2 Days Severity: Mild Associated Systoms: Fever/Chills (subjective), Malaise, Shortness of Air Allergies and Home Medications Allergies Coded Allergies: Penicillins (Verified Allergy, Unknown, 12/08/18) pt states she is not sure if she has ever had a reaction, but states her mom is allergic to penicillin so she was told to list it as an allergy codeine (Verified Allergy, Unknown, 09/22/21) promethazine (Verified Allergy, Unknown, 09/22/21) Patient Home Medication List Home Medication List Reviewed: Yes Alprazolam (Xanax) 0.25 Mg Tablet, 0.25 MG PO BID PRN for ANXIETY Prescribed by: TEMITOPE DUENAS on 07/02/19 2200 Cefdinir (Cefdinir) 300 Mg Capsule, 300 MG PO BID Prescribed by: TEMITOPE DUENAS on 05/28/21 1109 Cephalexin (Cephalexin) 500 Mg Capsule, (Reported) Entered as Reported by: IVAN TRACEY on 05/28/21 1035 Clindamycin HCl (Clindamycin HCl) 300 Mg Capsule, 300 MG PO TID Prescribed by: SOHAM CHAPIN on 10/05/21 1809 Dicyclomine HCl (Dicyclomine HCl) 20 Mg Tablet, 20 MG PO Q6H PRN for abdominal cramping Prescribed by: MINH RENO on 06/08/21 1721 Fluconazole (Diflucan) 150 Mg Tablet, 150 MG PO DAILY Prescribed by: TEMITOPE DUENAS on 05/28/21 1109 Hydrocodone/Acetaminophen (Hydrocodone-Acetamin 5-325 mg) 5 Mg-325 Mg Tablet, 1 TAB PO Q4H PRN for PAIN-MODERATE (5-7) Prescribed by: William Morrissey on 10/11/21 1119 Medroxyprogesterone Acetate (Depo-Provera) 150 Mg/1 Ml Vial, (Reported) Entered as Reported by: IVAN TRACEY on 05/28/21 1035 Naproxen (Naproxen) 500 Mg Tablet, (Reported) Entered as Reported by: BRANDEE ALCANTARA on 03/06/19 0914 Ondansetron (Ondansetron Odt) 8 Mg Tab.rapdis, 8 MG PO Q8H PRN for nausea Prescribed by: MINH RENO on 06/08/21 1721 Ondansetron (Ondansetron Odt) 4 Mg Tab.rapdis, 4 MG PO Q8H PRN for NAUSEA/VOMITING Prescribed by: MINH RENO on 09/22/21 2461 Review of Systems Review of Systems Constitutional: see HPI EENTM: ear pain (ear feels "full" on the left), nose congestion (slightly runny nose) Respiratory: short of breath Cardiovascular: no symptoms reported Gastrointestinal: nausea (mild) Genitourinary: no symptoms reported Musculoskeletal: muscle cramps (myalgias) Skin: no symptoms reported Psychiatric/Neurological: No Symptoms Reported All Other Systems Reviewed Negative Unless Noted: Yes Past Hfamxbx-Wzvwjr-Tqgnsi Hx Immunizations Up To Date Tetanus Booster (TDap): Less than 5yrs PED Vaccines UTD: No First/Initial COVID19 Vaccinat: 2020 Second COVID19 Vaccination Nacho: 2020 Third COVID19 Vaccination Date: 2020 Past Medical History Surgery/Hospitalization HX: GASTRIC SLEEVE, CHOLECYSTECTOMY, APPENDECTOMY, CSECTION, COLONOSCOPY HASHIMOTOS, CELIAC Surgeries: No (gastric sleeve) Section, Gallbladder Respiratory: No Cardiac: No Neurological: No 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 oz. 111.522978im; 46.00 BMI Method:Stated General Appearance: No Apparent Distress, WD/WN Eyes: Bilateral Eye Normal Inspection, Bilateral Eye PERRL, Bilateral Eye EOMI HEENT: PERRL/EOMI, Normal ENT Inspection, Pharynx Normal, TM Abnormal (L) (slightly injected left TM) Neck: Full Range of Motion, Normal Inspection, Supple Respiratory: Lungs Clear, Normal Breath Sounds, No Accessory Muscle Use, No Respiratory Distress, Other (oxygen sats 99% RA) Cardiovascular: Regular Rate, Rhythm (90's), Normal Peripheral Pulses Gastrointestinal: Normal Bowel Sounds, Soft, Tenderness (slight epigastric tenderness) Extremity: Normal Capillary Refill, Normal Inspection, Normal Range of Motion, Non Tender, No Calf Tenderness, No Pedal Edema Neurologic/Psychiatric: Alert, Oriented x3, No Motor/Sensory Deficits, Normal 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, 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 Norm as Tested Skin: Normal Color, Warm/Dry Progress/Results/Core Measures Suspected Sepsis SIRS Temperature: Pulse: 101 Respiratory Rate: 14 Blood Pressure 124 /91 Mean: 102 Results/Orders Lab Results Laboratory Tests Test 11/12/21 10:53 Range/Units SARS-CoV-2 RNA (RT-PCR) Not Detected Not Detecte My Orders Orders - MINH RENO MD Covid 19 Inhouse Test (11/12/21 10:56) Isolation Central Supply Req (11/12/21 10:56) Vital Signs/I&O 11/12/21 11/12/21 10:30 11:43 Temp 36.7 36.7 Pulse 101 101 Resp 14 14 B/P (MAP) 124/91 (102) 124/91 Pulse Ox 100 100 O2 Delivery Room Air Room Air Capillary Refill : Less Than 3 Seconds Blood Pressure Mean: 102 Progress Note : Time: 11:38 Progress Note Patient's COVID test today is negative. Her vital signs have been stable, she exhibits no increased work of breathing signs of respiratory distress or concerns for sepsis. I have advised her to drink plenty of fluids and to continue her daily home medications. Return precautions have been provided. She verbalized understanding. All questions are sought and answered. Departure Impression Primary Impression: Viral syndrome Disposition: 01 HOME, SELF-CARE Condition: Stable Departure-Patient Inst. Decision time for Depature: 11:39 Referrals: [facility] (PCP) Primary Care Physician LANA JASMINE (Family) Primary Care Physician Patient Instructions: Viral Syndrome (DC) Add. Discharge Instructions: Drink plenty of fluids to stay well-hydrated. Continue your daily home medications as previously prescribed. Follow-up with your primary care physician as needed. Return to the emergency department for any new, concerning or emergent complaints. Copy Copies To 1: VALENTIN TSE KATHRYN M MD Nov 12, 2021 10:49
[2021-11-12 11:43] VITALS: BP 124/91
== END 2021-11-12 11:43 | disposition home or self-care (01) ==
LOC: EDUNIT# 10:08 → ER 10:09
DX: B34.9 Viral infection, unspecified (principal); Z88.0 Allergy status to penicillin; Z79.899 Other long term (current) drug therapy; Z86.16 Personal history of COVID-19; Z20.822 Contact with and (suspected) exposure to COVID-19
CPT/HCPCS: 87636; 99283

== ENCOUNTER 2021-12-16 14:57 | Emergency (ER) | payer MEDICAID ==
[~2021-12-16] VITALS: Ht 162 cm; Wt 121.3 kg
[2021-12-16 15:12] LABS: BILIRUBIN,URINE NEGATIVE (NEGATIVE); CLARITY,URINE CLEAR; GLUCOSE, URINE (UA) NEGATIVE (NEGATIVE); KETONES,URINE TRACE (NEGATIVE); LEUKOCYTE ESTERASE ,URINE TRACE (NEGATIVE); NITRITE,URINE NEGATIVE (NEGATIVE); PROTEIN,URINE 2+ (NEGATIVE)
[2021-12-16] MEDS ORDERED: ONDANSETRON 4 MG/2 ML (SDV) Z0FRAN IVP STA (15:44)
[2021-12-16] MEDS ORDERED: NS IV 1000 ML 1,000 ML IV SCH (15:45)
[2021-12-16 15:51] LABS: BASOPHILS % (AUTO) 0 % (0-10); EOSINOPHILS % (AUTO) 1 % (0-10); HEMATOCRIT 39 % (35-52); HEMOGLOBIN 12.5 g/dL (11.5-16.0); LYMPHOCYTES # (AUTO) 1.3 10^3/uL (1.0-4.0); LYMPHOCYTES % (AUTO) 16 % (12-44); MEAN CORPUSCULAR HEMOGLOBIN 27 pg (25-34); MEAN CORPUSCULAR HGB CONC 32 g/dL (32-36); MEAN CORPUSCULAR VOLUME 83 fL (80-99); MEAN PLATELET VOLUME 11.5 fL (9.0-12.2); MONOCYTES # (AUTO) 0.7 10^3/uL (0.0-1.0); MONOCYTES % (AUTO) 8 % (0-12); NEUTROPHILS # (AUTO) 6.3 10^3/uL (1.8-7.8); NEUTROPHILS % (AUTO) 76 % (42-75); PLATELET COUNT 242 10^3/uL (130-400); WHITE BLOOD COUNT 8.3 10^3/uL (4.3-11.0)
--- NOTE | 2021-12-16 15:53 | ED Syncope ---
General Chief Complaint: Dizziness/Syncope Stated Complaint: FAINTED, NAUSEA Nursing Triage Note: patient states today she "passed out" at work. denies injury. states she is nauseated and has upper abdominal pain. patient also states she started having vaginal bleeding today. states 1 pad every two hours. History of Present Illness Date Seen by Provider: Dec 16, 2021 Time Seen by Provider: 15:19 Initial Comments 26 year old female reports fainting at work today. No head, neck or back injury/pain. She had not ate or drank anything all day. She must abide by gluten free foods and didn't pack anything. 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 She had no menses since Mar 2021, didn't obtain her Depo Provera shot in June. Began spotting today. Had UTI in Apr that was resistant to Macrobid, required Levaquin to treat. Timing/Prior Episodes: Remote History Loss of Consciousness: Dazed Current Symptoms: Back to Normal; No Blurred Vision, No Chest Pain, No Diaphoresis, No Dizziness, No Headache, No Injury, No Lightheadedness, No Loss o f Bladder Control, No Loss of Bowel Control; Nausea Allergies and Home Medications Allergies Coded Allergies: Penicillins (Verified Allergy, Unknown, 12/08/18) pt states she is not sure if she has ever had a reaction, but states her mom is allergic to penicillin so she was told to list it as an allergy codeine (Verified Allergy, Unknown, 09/22/21) promethazine (Verified Allergy, Unknown, 09/22/21) Patient Home Medication List Home Medication List Reviewed: Yes Alprazolam (Xanax) 0.25 Mg Tablet, 0.25 MG PO BID PRN for ANXIETY Prescribed by: TEMITOPE DUENAS on 07/02/19 2200 Cefdinir (Cefdinir) 300 Mg Capsule, 300 MG PO BID Prescribed by: TEMITOPE DUENAS on 05/28/21 1109 Cephalexin (Cephalexin) 500 Mg Capsule, (Reported) Entered as Reported by: IVAN TRACEY on 05/28/21 1035 Clindamycin HCl (Clindamycin HCl) 300 Mg Capsule, 300 MG PO TID Prescribed by: SOHAM CHAPIN on 10/05/21 1809 Dicyclomine HCl (Dicyclomine HCl) 20 Mg Tablet, 20 MG PO Q6H PRN for abdominal cramping Prescribed by: MINH RENO on 06/08/21 1721 Fluconazole (Diflucan) 150 Mg Tablet, 150 MG PO DAILY Prescribed by: TEMITOPE DUENAS on 05/28/21 1109 Hydrocodone/Acetaminophen (Hydrocodone-Acetamin 5-325 mg) 5 Mg-325 Mg Tablet, 1 TAB PO Q4H PRN for PAIN-MODERATE (5-7) Prescribed by: William Morrissey on 10/11/21 1119 Levofloxacin (Levofloxacin) 500 Mg Tablet, 500 MG PO DAILY Prescribed by: ELIZABETH LÓPEZ on 12/16/21 1722 Medroxyprogesterone Acetate (Depo-Provera) 150 Mg/1 Ml Vial, (Reported) Entered as Reported by: IVAN TRACEY on 05/28/21 1035 Naproxen (Naproxen) 500 Mg Tablet, (Reported) Entered as Reported by: BRANDEE ALCANTARA on 03/06/19 0914 Ondansetron (Ondansetron Odt) 8 Mg Tab.rapdis, 8 MG PO Q8H PRN for nausea Prescribed by: MINH RENO on 06/08/21 1721 Ondansetron (Ondansetron Odt) 4 Mg Tab.rapdis, 4 MG PO Q8H PRN for NAUSEA/VOMITING Prescribed by: MINH RENO on 09/22/21 2324 Discontinued Medications Nitrofurantoin Monohyd/M-Cryst (Macrobid 100 mg Capsule) 100 Mg Capsule, 1 TAB PO BID Prescribed by: EILZABETH LÓPEZ on 12/16/21 1716 Review of Systems Constitutional: see HPI, malaise Gastrointestinal: see HPI; No abdominal pain; nausea; No vomiting : No Control/STD Prophylaxis: Depo Provera All Other Systems Reviewed Negative Unless Noted: Yes Past Mnibgvq-Qfbpfj-Lrwasl Hx Immunizations Up To Date Tetanus Booster (TDap): Less than 5yrs PED Vaccines UTD: No First/Initial COVID19 Vaccinat: 2019 Second COVID19 Vaccination Nacho: 2019 Third COVID19 Vaccination Date: 2020 COVID19 Vaccine Family Caseworker: Terri Past Medical History Surgery/Hospitalization HX: GASTRIC SLEEVE, CHOLECYSTECTOMY, APPENDECTOMY, CSECTION, COLONOSCOPY HASHIMOTOS, CELIAC Surgeries: No (gastric sleeve) Section, Gallbladder Respiratory: No Cardiac: No Neurological: No Reproductive Disorders: 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 oz. 111.574256lz; 46.00 BMI Method:Stated General Appearance: No Apparent Distress, WD/WN Cardiovascular: Regular Rate, Rhythm, No Edema, No Murmur, Normal Peripheral Pulses Respiratory: Chest Non Tender, Lungs Clear, Normal Breath Sounds Gastrointestinal: Normal Bowel Sounds, Non Tender, Soft; No Distended, No Guarding, No Rebound, No Tenderness Extremities: Normal Capillary Refill, Normal Inspection, Normal Range of Motion Neurologic/Psychiatric: Alert, Oriented x3, No Motor/Sensory Deficits, Normal Mood/Affect Cranial Nerves: Normal Hearing, Normal Speech, PERRL Coordination/Gait: Normal Finger to Nose, Normal Gait Skin: Normal Color, Warm/Dry Progress/Results/Core Measures Results/Orders Lab Results Laboratory Tests Test 12/16/21 15:00 12/16/21 15:10 Range/Units Urine Color RED H Urine Clarity CLEAR Urine pH 5.0 5-9 Urine Specific [place] >=1.030 1.016-1.022 Urine Protein 2+ H NEGATIVE Urine Glucose (UA) NEGATIVE NEGATIVE Urine Ketones TRACE H NEGATIVE Urine Nitrite NEGATIVE NEGATIVE Urine Bilirubin NEGATIVE NEGATIVE Urine Urobilinogen 0.2 < = 1.0 MG/DL Urine Leukocyte Esterase TRACE H NEGATIVE Urine RBC (Auto) 3+ H NEGATIVE Urine RBC TNTC H /HPF Urine WBC 2-5 /HPF Urine Squamous Epithelial Cells 5-10 /HPF Urine Renal Epithelial Cells 0-2 /HPF Urine Crystals NONE /LPF Urine Bacteria FEW H /HPF Urine Casts NONE /LPF Urine Mucus MODERATE H /LPF Urine Culture Indicated YES White Blood Count 8.3 4.3-11.0 10^3/uL Red Blood Count 4.67 3.80-5.11 10^6/uL Hemoglobin 12.5 11.5-16.0 g/dL Hematocrit 39 35-52 % Mean Corpuscular Volume 83 80-99 fL Mean Corpuscular Hemoglobin 27 25-34 pg Mean Corpuscular Hemoglobin Concent 32 32-36 g/dL Red Cell Distribution Width 13.2 10.0-14.5 % Platelet Count 242 130-400 10^3/uL Mean Platelet Volume 11.5 9.0-12.2 fL Immature Granulocyte % (Auto) 0 % Neutrophils (%) (Auto) 76 H 42-75 % Lymphocytes (%) (Auto) 16 12-44 % Monocytes (%) (Auto) 8 0-12 % Eosinophils (%) (Auto) 1 0-10 % Basophils (%) (Auto) 0 0-10 % Neutrophils # (Auto) 6.3 1.8-7.8 10^3/uL Lymphocytes # (Auto) 1.3 1.0-4.0 10^3/uL Monocytes # (Auto) 0.7 0.0-1.0 10^3/uL Eosinophils # (Auto) 0.0 0.0-0.3 10^3/uL Basophils # (Auto) 0.0 0.0-0.1 10^3/uL Immature Granulocyte # (Auto) 0.0 0.0-0.1 10^3/uL Sodium Level 142 135-145 MMOL/L Potassium Level 3.7 3.6-5.0 MMOL/L Chloride Level 107 98-107 MMOL/L Carbon Dioxide Level 23 21-32 MMOL/L Anion Gap 12 5-14 MMOL/L Blood Urea Nitrogen 8 7-18 MG/DL Creatinine 0.72 0.60-1.30 MG/DL Estimat Glomerular Filtration Rate 120 BUN/Creatinine Ratio 11 Glucose Level 94 70-105 MG/DL Calcium Level 9.0 8.5-10.1 MG/DL Corrected Calcium 8.9 8.5-10.1 MG/DL Total Bilirubin 0.5 0.1-1.0 MG/DL Aspartate Amino Transf (AST/SGOT) 20 5-34 U/L Alanine Aminotransferase (ALT/SGPT) 21 0-55 U/L Alkaline Phosphatase 71 40-136 U/L Total Protein 7.5 6.4-8.2 GM/DL Albumin 4.1 3.2-4.5 GM/DL Amylase Level 49 25-125 U/L Lipase 7 L 8-78 U/L Serum Test, Qualitative NEGATIVE NEGATIVE My Orders Orders - RENEELIZABETH Urine Bedside (12/16/21 15:00) Ua Culture If Indicated (12/16/21 15:00) Ondansetron Injection (Zofran Injectio (12/16/21 15:44) Amylase (12/16/21 15:44) Cbc With Automated Diff (12/16/21 15:44) Comprehensive Metabolic Panel (12/16/21 15:44) Hcg,Qualitative Serum (12/16/21 15:44) Lipase (12/16/21 15:44) Ed Iv/Invasive Line Start (12/16/21 15:44) Ns Iv 1000 Ml (Sodium Chloride 0.9%) (12/16/21 15:45) Urine Culture (12/16/21 15:00) Vital Signs/I&O 12/16/21 15:19 Temp 36.9 Pulse 105 Resp 18 B/P (MAP) 121/96 (104) Pulse Ox 100 O2 Delivery Room Air Blood Pressure Mean: 104 Progress Progress Note : Time: 15:19 Progress Note Patient seen and evaluated, will obtain labs, normal saline 1 L per IV and Zofran 8 mg IV. 1615, patient reports improvement in symptoms. She has had no vomiting since admission. She reports nausea do may improve. Reassured her that both urine and serum hCG are negative. 1650 IV fluids infused. Discharge instructions and return precautions reviewed with the patient. All questions answered Departure Impression Primary Impression: UTI (urinary tract infection) Qualified Codes: N30.01 - Acute cystitis with hematuria Additional Impression: Weakness Disposition: HOME, SELF-CARE Condition: Improved Departure-Patient Inst. Decision time for Depature: 16:50 Referrals: [facility] (PCP) Primary Care Physician LANA JASMINE (Family) Primary Care Physician Patient Instructions: Syncope (Fainting) (DC), Urinary Tract Infection, Adult (DC) Add. Discharge Instructions: Increase water intake, 16 ounces every 2 hours while awake. Eat small frequent meals. Take antibiotics as prescribed. Follow-up with your primary care provider if symptoms are not improving or wor sen. Return to the emergency department for new, urgent healthcare needs. All discharge instructions reviewed with patient and/or family. Voiced understanding. Scripts Levofloxacin (Levofloxacin) 500 Mg Tablet 500 MG PO DAILY, #7 TAB 0 Refills Prov: ELIZABETH LÓPEZ 12/16/21 ELIZABETH LÓPEZ Dec 16, 2021 15:53
[2021-12-16 15:57] LABS: ALBUMIN 4.1 GM/DL (3.2-4.5); POTASSIUM 3.7 MMOL/L (3.6-5.0)
[2021-12-16 16:00] LABS: TOTAL PROTEIN 7.5 GM/DL (6.4-8.2)
[2021-12-16 16:01] LABS: BILIRUBIN,TOTAL 0.5 MG/DL (0.1-1.0)
[2021-12-16 16:03] LABS: CREATININE SERUM 0.72 MG/DL (0.60-1.30)
[2021-12-16 16:14] LABS: COLOR,URINE RED; RBC,URINE TNTC /HPF
[2021-12-16 16:27] LABS: BACTERIA,URINE FEW /HPF; RENAL EPITHELIAL CELLS,URINE 0-2 /HPF
[2021-12-16] MEDS ORDERED: NITR-65 PO (17:16)
[2021-12-16] MEDS ORDERED: LEVO500T81 PO (17:22)
[2021-12-16 17:34] VITALS: BP 124/85
== END 2021-12-16 17:35 | disposition home or self-care (01) ==
LOC: EDUNIT# 14:57 → ER 14:59
DX: N39.0 Urinary tract infection, site not specified (principal); R53.1 Weakness
CPT/HCPCS: 36415; 80053; 81000; 82150; 83690; 84703; 85025; 87088

== ENCOUNTER 2022-03-10 21:17 | Emergency (ER) | payer MEDICAID ==
[~2022-03-10] VITALS: Ht 160 cm; Wt 120.6 kg
[~2022-03-10 21:17] MED LIST changes: +LEVO-55 PO; +NITR-65 PO
[2022-03-10 21:23] VITALS: BP 138/79
--- NOTE | 2022-03-10 23:11 | ED GI ---
General Chief Complaint: Abdominal/GI Problems Stated Complaint: CONSTIPATED Nursing Triage Note: PT AMB TO ED BY POV WITH C/O CONSTIPATION. PT REPORTS LAST BM TUESDAY. PT HAS TRIED MIRALAX, PRUNE JUICE, AND COFFEE. PT IS NAUSEOUS, DENIES VOMITING. Source of Information: Patient Exam Limitations: No Limitations History of Present Illness Date Seen by Provider: Mar 10, 2022 Time Seen by Provider: 22:17 Initial Comments Here with report of constipation. Patient states that she is not had a bowel movement since Tuesday. She has tried MiraLAX and prune juice as well as coffee but is not having results. Has had some problems with constipation previously. Denies significant abdominal pain. She did buy a sodium phosphate enema but has not used it as she was not sure about if that was okay or not. Denies fever or chills. Timing/Duration: 4-5 Days Severity/Quality: Moderate, Full Location: Other (Abdominal fullness) Radiation: No Radiation Modifying Factors: Improves With Resting Associated Symptoms: No Fever/Chills, No Nausea/Vomiting, No Shortness of Air, No Weakness Allergies and Home Medications Allergies Coded Allergies: Penicillins (Verified Allergy, Unknown, 12/08/18) pt states she is not sure if she has ever had a reaction, but states her mom is allergic to penicillin so she was told to list it as an allergy codeine (Verified Allergy, Unknown, 09/22/21) promethazine (Verified Allergy, Unknown, 09/22/21) Patient Home Medication List Home Medication List Reviewed: Yes Alprazolam (Xanax) 0.25 Mg Tablet, 0.25 MG PO BID PRN for ANXIETY Prescribed by: TEMITOPE DUENAS on 07/02/19 2200 Cefdinir (Cefdinir) 300 Mg Capsule, 300 MG PO BID Prescribed by: TEMITOPE DUENAS on 05/28/21 1109 Cephalexin (Cephalexin) 500 Mg Capsule, (Reported) Entered as Reported by: IVAN TRACEY on 05/28/21 1035 Clindamycin HCl (Clindamycin HCl) 300 Mg Capsule, 300 MG PO TID Prescribed by: SOHAM CHAPIN on 10/05/21 1809 Dicyclomine HCl (Dicyclomine HCl) 20 Mg Tablet, 20 MG PO Q6H PRN for abdominal cramping Prescribed by: MINH RENO on 06/08/21 1721 Fluconazole (Diflucan) 150 Mg Tablet, 150 MG PO DAILY Prescribed by: TEMITOPE DUENAS on 05/28/21 1109 Hydrocodone/Acetaminophen (Hydrocodone-Acetamin 5-325 mg) 5 Mg-325 Mg Tablet, 1 TAB PO Q4H PRN for PAIN-MODERATE (5-7) Prescribed by: William Morrissey on 10/11/21 1119 Levofloxacin (Levofloxacin) 500 Mg Tablet, 500 MG PO DAILY Prescribed by: ELIZABETH LÓPEZ on 12/16/21 1722 Medroxyprogesterone Acetate (Depo-Provera) 150 Mg/1 Ml Vial, (Reported) Entered as Reported by: IVAN TRACEY on 05/28/21 1035 Naproxen (Naproxen) 500 Mg Tablet, (Reported) Entered as Reported by: BRANDEE ALCANTARA on 03/06/19 0914 Ondansetron (Ondansetron Odt) 8 Mg Tab.rapdis, 8 MG PO Q8H PRN for nausea Prescribed by: MINH RENO on 06/08/21 1721 Ondansetron (Ondansetron Odt) 4 Mg Tab.rapdis, 4 MG PO Q8H PRN for NAUSEA/VOMITING Prescribed by: MINH RENO on 09/22/21 2324 Review of Systems Review of Systems Constitutional: see HPI; No chills, No fever Respiratory: No Symptoms Reported Gastrointestinal: See HPI, Abdominal Pain, Constipated; Denies Nausea, Denies Vomiting Genitourinary: No Symptoms Reported Musculoskeletal: no symptoms reported Past Dimzmvd-Hxkbyz-Nfochu Hx Patient Social History Tobacco Use?: No Use of E-Cig and/or Vaping dev: No Substance use?: No Alcohol Use?: No Pt feels they are or have been: No Immunizations Up To Date Tetanus Booster (TDap): Less than 5yrs PED Vaccines UTD: No Influenza Vaccine Up-to-Date: Yes; Up-to-Date First/Initial COVID19 Vaccinat: 2019 Second COVID19 Vaccination Nacho: 2019 Third COVID19 Vaccination Date: 2020 Past Medical History Surgery/Hospitalization HX: GASTRIC SLEEVE, CHOLECYSTECTOMY, APPENDECTOMY, CSECTION, COLONOSCOPY HASHIMOTOS, CELIAC Surgeries: No (gastric sleeve) Section, Gallbladder Respiratory: No Cardiac: No Neurological: No 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 oz. 111.423469xv; 47.00 BMI Method:Stated General Appearance: WD/WN, no apparent distress Neck: full range of motion, supple Respiratory: lungs clear, normal breath sounds Cardiovascular: regular rate, rhythm, no murmur Gastrointestinal: normal bowel sounds, non tender, soft Neurologic/Psychiatric: alert, oriented x 3 Skin: normal color, warm/dry Progress/Results/Core Measures Results/Orders My Orders Orders - DANICA STEPHEN MD Acute Abd Series (03/10/22 22:22) Vital Signs/I&O 03/10/22 21:23 Temp 36.4 Pulse 87 Resp 18 B/P (MAP) 138/79 (98) Pulse Ox 100 O2 Delivery Room Air Blood Pressure Mean: 98 Progress Progress Note : Progress Note Seen and evaluated. Acute abdominal series ordered. Discussed rectal exam which patient will prefer her not do at this point if possible. I did discuss with her about following up with her women's health doctor for further evaluation as well and she states that she will. Monitor patient. 2305: Acute abdominal series interpreted by me shows constipation but otherwise no findings concerning for obstruction. I did discuss at length with the patient regarding [id number] therapy and discussed the sodium phosphate enema. She will do and continue but increase her MiraLAX. She feels more comfortable now. Discharged home with return precautions. Patient verbalized understanding instructions and agreement with plan. Diagnostic Imaging Diagonstic Imaging: Xray Plain Films/CT/US/NM/MRI: abdomen Comments Acute abdominal series shows constipation but otherwise no acute findings. Reviewed: Reviewed by Me Departure Impression Primary Impression: Constipation Qualified Codes: K59.00 - Constipation, unspecified Disposition: 01 HOME, SELF-CARE Condition: Stable Departure-Patient Inst. Decision time for Depature: 23:09 Referrals: [facility] (PCP) Primary Care Physician LANA JASMINE (Family) Primary Care Physician Patient Instructions: Constipation, Adult (DC) Add. Discharge Instructions: All discharge instructions reviewed with patient and/or family. Voiced understanding. Use the sodium phosphate enema per package directions. If you get good results then you may continue MiraLAX 1 capful daily for a few days and then as needed after that. If you do not get good results, increase MiraLAX to 1 capful twice daily for 3 days and then decrease to 1 capful daily thereafter to keep stools soft. You may increase or decrease dose to keep stools in normal range. You may also try [id number] Dulcolax suppository per package directions if you are not getting good results after enema. Follow-up with your doctor later this week for recheck and further evaluation. Return for worse pain, swelling, increasing abdominal pain, fever, weakness or other concerns as needed. DANICA STEPHEN MD Mar 10, 2022 23:11
--- NOTE | 2022-03-11 08:02 | Diagnostic Imaging Report ---
INDICATION: Constipation, abdominal pain TECHNIQUE: Single view chest with supine and upright radiograph of the abdomen. CORRELATION STUDY: Chest 08/17/2021 FINDINGS: Frontal radiograph of the chest demonstrates no acute abnormality. Cholecystectomy clips. There are gas-filled loops of small bowel present. There is moderate stool within the colon. Distal colonic fecal loading present. Cholecystectomy clips in the right upper quadrant. No differentiating air-fluid levels. IMPRESSION: 1. Negative for acute cardiopulmonary abnormality. 2. Prominent gas-filled loops of small bowel. May reflect mild ileus. High degree obstructive process does not appear to be present. Moderate stool retention. Dictated by: Dictated on workstation # [id number]
== END 2022-03-10 23:20 | disposition home or self-care (01) ==
LOC: EDUNIT# 21:17 → ER 21:19
DX: K59.00 Constipation, unspecified (principal)
CPT/HCPCS: 74022

== ENCOUNTER 2022-04-19 14:36 | Emergency (ER) | payer MEDICAID ==
[~2022-04-19] VITALS: Ht 162 cm; Wt 121.0 kg
--- NOTE | 2022-04-19 15:10 | ED EENT ---
History of Present Illness General Chief Complaint: Oral/Throat Problems Stated Complaint: STREP + | SHAKING | Nursing Triage Note: PT PRESENTS TO ED VIA POV FROM HOME WITH COMPLAINTS OF SORE THROAT, BODY ACHES, FEVER, AND CHEST PAINS. PT WAS SEEN AT URGENT CARE IN [place] AND TESTED POSITIVE FOR STREP AND PLACED ON CLINDAMYCIN. PT TESTED NEGATIVE FOR FLU AND COVID. History of Present Illness Date Seen by Provider: Apr 19, 2022 Time Seen by Provider: 14:45 Initial Comments 26 year old female presents shaking with complaints of Strep Pharyngitis. Taking Clindamycin as prescribed; alternating Tylenol and Ibuprofen. 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 Has not been doing salt water gargles. Reports she is able to eat and drink. History of anxiety with panic attacks, not currently on medications as she reports her PCP left [facility]. Timing/Duration: last week Severity: moderate Location: throat Prearrival Treatment: over the counter meds, prescription meds Associated Symptoms: No cough, No facial pain/swelling; fever, malaise, sore throat; No voice change Allergies and Home Medications Allergies Coded Allergies: Penicillins (Verified Allergy, Unknown, 12/08/18) pt states she is not sure if she has ever had a reaction, but states her mom is allergic to penicillin so she was told to list it as an allergy codeine (Verified Allergy, Unknown, 09/22/21) promethazine (Verified Allergy, Unknown, 09/22/21) Patient Home Medication List Home Medication List Reviewed: Yes Alprazolam (Xanax) 0.25 Mg Tablet, 0.25 MG PO BID PRN for ANXIETY Prescribed by: TEMITOPE DUENAS on 07/02/19 2200 Azithromycin (Azithromycin) 250 Mg Tablet, 250 MG PO UD Prescribed by: ELIZABETH LÓPEZ on 04/19/22 1553 Cefdinir (Cefdinir) 300 Mg Capsule, 300 MG PO BID Prescribed by: TEMITOPE DUENAS on 05/28/21 1109 Cephalexin (Cephalexin) 500 Mg Capsule, (Reported) Entered as Reported by: IVAN TRACEY on 05/28/21 1035 Clindamycin HCl (Clindamycin HCl) 300 Mg Capsule, 300 MG PO TID Prescribed by: SOHAM CHAPIN on 10/05/21 1809 Dicyclomine HCl (Dicyclomine HCl) 20 Mg Tablet, 20 MG PO Q6H PRN for abdominal cramping Prescribed by: MINH RENO on 06/08/21 1721 Fluconazole (Diflucan) 150 Mg Tablet, 150 MG PO DAILY Prescribed by: TEMITOPE DUENAS on 05/28/21 1109 Hydrocodone/Acetaminophen (Hydrocodone-Acetamin 5-325 mg) 5 Mg-325 Mg Tablet, 1 TAB PO Q4H PRN for PAIN-MODERATE (5-7) Prescribed by: William Morrissey on 10/11/21 1119 Levofloxacin (Levofloxacin) 500 Mg Tablet, 500 MG PO DAILY Prescribed by: ELIZABETH LÓPEZ on 12/16/21 1722 Medroxyprogesterone Acetate (Depo-Provera) 150 Mg/1 Ml Vial, (Reported) Entered as Reported by: IVAN TRACEY on 05/28/21 1035 Naproxen (Naproxen) 500 Mg Tablet, (Reported) Entered as Reported by: BRANDEE ALCANTARA on 03/06/19 0914 Ondansetron (Ondansetron Odt) 8 Mg Tab.rapdis, 8 MG PO Q8H PRN for nausea Prescribed by: MINH RENO on 06/08/21 1721 Ondansetron (Ondansetron Odt) 4 Mg Tab.rapdis, 4 MG PO Q8H PRN for NAUSEA/VOMITING Prescribed by: MINH RENO on 09/22/21 2324 Prednisone (Prednisone) 20 Mg Tab, 40 MG PO DAILY Prescribed by: ELIZABETH LÓPEZ on 04/19/22 1553 Review of Systems Review of Systems Constitutional: see HPI, chills, fever, malaise Eyes: No Symptoms Reported, See HPI Ears: No Symptoms Reported, See HPI Nose: no symptoms reported, see HPI Mouth: no symptoms reported, see HPI Throat: see HPI, pain, swelling; denies neck stiffness; painful swallowing (but tolerating soft foods/drinks) Respiratory: no symptoms reported, see HPI Cardiovascular: no symptoms reported, see HPI Gastrointestinal: see HPI, nausea (at times, no vomiting, No complaints at this time. ) All Other Systems Reviewed Negative Unless Noted: Yes Past Tpuxqmx-Wwsnbn-Zkmpvz Hx Immunizations Up To Date Tetanus Booster (TDap): Less than 5yrs PED Vaccines UTD: No First/Initial COVID19 Vaccinat: 2020 Second COVID19 Vaccination Nacho: 2019 Third COVID19 Vaccination Date: 2020 Past Medical History Surgery/Hospitalization HX: GASTRIC SLEEVE, CHOLECYSTECTOMY, APPENDECTOMY, CSECTION, COLONOSCOPY HASHIMOTOS, CELIAC Surgeries: No (gastric sleeve) Section, Gallbladder Respiratory: No Cardiac: No Neurological: No Reproductive Disorders: No WELDER EXPLOSION History: IUD Genitourinary: No Gastrointestinal: No Musculoskeletal: No Endocrine: No HEENT: No Cancer: No Psychosocial: No Integumentary: No Blood Disorders: No Family Medical History Reviewed Nursing Family Hx No Pertinent Family Hx Bariatric Surgery Physical Exam Vital Signs Vital Signs - First Documented 04/19/22 14:43 Temp 36.4 Pulse 106 Resp 18 B/P (MAP) 130/85 (100) Pulse Ox 100 Height, Weight, BMI Height: 5'4.00" Weight: 246lbs. oz. 111.277120sz; 46.00 BMI Method:Stated General Appearance: mild distress Ears: bilateral ear auricle normal, bilateral ear canal normal, bilateral ear TM normal Nose: normal inspection; No active bleeding, No discharge Mouth/Throat: normal mouth inspection; No dental tenderness; tonsillar exudate, tonsillar swelling, other (Oral Mucosa pink and moist, no tonsilar abscess noted. ) Neck: full range of motion, supple, normal inspection, lymphadenopathy (R), lymphadenopathy (L) Cardiovascular: normal peripheral pulses, regular rate, rhythm, other (patient reports chest pain; when palpating strenum patient complains of extreme pain. She has similar reproducable pain with palpation of UEs and LEs. ) Respiratory: lungs clear, normal breath sounds Gastrointestinal: normal bowel sounds, non tender, soft Neurologic/Psychiatric: no motor/sensory deficits, alert, normal mood/affect, oriented x 3 Skin: normal color, warm/dry; No rash Progress/Results/Core Measures Results/Orders My Orders Orders - ELIZABETH LÓPEZ Ekg Tracing (04/19/22 15:03) Vital Signs/I&O 04/19/22 14:43 Temp 36.4 Pulse 106 Resp 18 B/P (MAP) 130/85 (100) Pulse Ox 100 Blood Pressure Mean: 100 Progress Progress Note : Time: 14:45 Progress Note patient assessed, will check EKG as patient is demanding EKG for the chest wall pain. Explained this is due to anxiety. She is allergic to PCN and tried Keflex fur UTI and it did not work. 1500 Assured patient EKG is normal. She is no longer shaking. 1530 patient denies any new complaints, taking ice chips. Discharge instructions and return precautions reviewed. Initial ECG Impression Date: Apr 19, 2022 Initial ECG Impression Time: 15:08 Initial ECG Rate: 95 Initial ECG Rhythm: Normal Sinus Initial ECG Intervals: Normal Initial ECG Intervals NC 198, QRS D 91, QT 345, QTc 398. [place] P 14, R 53, T6. Initial ECG Impression: Normal Initial ECG Comparisson: Unchanged Departure Impression Primary Impression: Acute pharyngitis Qualified Codes: J02.0 - Streptococcal pharyngitis Additional Impression: Anxiety Disposition: 01 HOME, SELF-CARE Condition: Improved Departure-Patient Inst. Decision time for Depature: 15:30 Referrals: [facility]/ (PCP/Family) Primary Care Physician Patient Instructions: Strep Throat (DC) Add. Discharge Instructions: Mix 1 cup of warm water with 1 teaspoon of salt and gargle every 4 hours. Continue to take Tylenol and ibuprofen alternating every 4 hours. Stop the clindamycin and start the new antibiotic as prescribed. Take the steroids as prescribed. Follow-up at [facility] walk-in if symptoms or not improving or worsen. Return to the emergency department for new, urgent healthcare needs. All discharge instructions reviewed with patient and/or family. Voiced understanding. Scripts Prednisone (Prednisone) 20 Mg Tab 40 MG PO DAILY, #6 TAB 0 Refills Prov: ELIZABETH LÓPEZ 04/19/22 Azithromycin (Azithromycin) 250 Mg Tablet 250 MG PO UD, #6 TAB 0 Refills TAKE 2 TABLETS ON DAY ONE THEN TAKE 1 TABLET DAILY FOR FOUR MORE DAYS Prov: ELIZABETH LÓPEZ 04/19/22 ELIZABETH LÓPEZ Apr 19, 2022 15:10
[2022-04-19] MEDS ORDERED: PRD20T PO (15:53)
[2022-04-19] MEDS ORDERED: AZIT250T12 PO (15:53)
[2022-04-19 16:04] VITALS: BP 115/79
== END 2022-04-19 16:03 | disposition home or self-care (01) ==
LOC: EDUNIT# 14:36 → ER 14:39
DX: J02.0 Streptococcal pharyngitis (principal); F41.9 Anxiety disorder, unspecified; R07.89 Other chest pain; Z88.0 Allergy status to penicillin
CPT/HCPCS: 93005

== ENCOUNTER → 2022-05-08 | Outpatient (CLI) | payer MEDICAID ==
[~2022-05-08] MED LIST changes: +AZIT250T12 PO; +PRD20T PO
== END ==
LOC: LAB 11:44
PROVIDERS: ATTEND Obstetrics & Gynecology
DX: Z32.00 Encounter for pregnancy test, result unknown (principal)
CPT/HCPCS: 36415; 84702

== ENCOUNTER 2022-05-17 17:51 | Emergency (ER) | payer MEDICAID ==
[~2022-05-17] VITALS: Ht 162.6 cm; Wt 122.0 kg
[2022-05-17 18:31] LABS: BILIRUBIN,URINE NEGATIVE (NEGATIVE); CLARITY,URINE CLEAR; COLOR,URINE YELLOW; GLUCOSE, URINE (UA) NEGATIVE (NEGATIVE); KETONES,URINE NEGATIVE (NEGATIVE); LEUKOCYTE ESTERASE ,URINE NEGATIVE (NEGATIVE); NITRITE,URINE NEGATIVE (NEGATIVE); PROTEIN,URINE NEGATIVE (NEGATIVE)
--- NOTE | 2022-05-17 18:53 | ED GU-Female ---
General Chief Complaint: OB < 20 WEEKS Stated Complaint: 5 WEEKS , CRAMPING, LOW BACK PAIN Nursing Triage Note: PT AMB TO ED BY POV WITH C/O ABD CRAMPING. PT REPORTS SHE IS APPROX 5 WKS AND HAS HAD SOME LIGHT CRAMPING AND LIGHT PINK SPOTTING BEGINNING TODAY. LMP APR 09, . Source: patient Exam Limitations: no limitations (EMILY MCGRATH APRN) History of Present Illness Date Seen by Provider: May 17, 2022 Time Seen by Provider: 18:25 Initial Comments 26-year-old female presents with lower abdominal and lower back cramping starting this morning, reports she also has had light pink spotting since this morning. States she is approximately 5 weeks and 4 days, last menstrual cycle was 04/09/2022. Patient has not seen OB yet or had an ultrasound completed. She had an hCG drawn here on 05/08/2022 which was 148. She denies any fevers/chills, headache, cough, chest pain, shortness of air. Reports some nausea, no vomiting. Reports some constipation. Denies vaginal discharge. Denies dysuria. Reports she had high blood pressure with her first and had a at 38 weeks and 4 days due to high blood pressure. Reports her other pregnancies ended in a miscarriage around 4 to 6 weeks. Past medical history includes Jake's, interstitial cystitis, and celiac disease. Currently takes levothyroxine and . Timing/Duration: this morning Severity/Quality: cramping Location: suprapubic Radiation: back (EMILY MCGRATH APRN) Allergies and Home Medications Allergies Coded Allergies: Penicillins (Verified Allergy, Unknown, 12/08/18) pt states she is not sure if she has ever had a reaction, but states her mom is allergic to penicillin so she was told to list it as an allergy codeine (Verified Allergy, Unknown, 09/22/21) promethazine (Verified Allergy, Unknown, 09/22/21) Patient Home Medication List Home Medication List Reviewed: Yes (EMILY MCGRATH APRN) Alprazolam (Xanax) 0.25 Mg Tablet, 0.25 MG PO BID PRN for ANXIETY Prescribed by: TEMITOPE DUENAS on 07/02/19 2200 Azithromycin (Azithromycin) 250 Mg Tablet, 250 MG PO UD Prescribed by: ELIZABETH LÓPEZ on 04/19/22 1553 Cefdinir (Cefdinir) 300 Mg Capsule, 300 MG PO BID Prescribed by: TEMITOPE DUENAS on 05/28/21 1109 Cephalexin (Cephalexin) 500 Mg Capsule, (Reported) Entered as Reported by: IVAN TRACEY on 05/28/21 1035 Clindamycin HCl (Clindamycin HCl) 300 Mg Capsule, 300 MG PO TID Prescribed by: SOHAM CHAPIN on 10/05/21 1809 Dicyclomine HCl (Dicyclomine HCl) 20 Mg Tablet, 20 MG PO Q6H PRN for abdominal cramping Prescribed by: MINH RENO on 06/08/21 172 Ferrous Sulfate (Iron) 325 Mg (65 Mg Iron) Tablet, 325 MG PO UD Prescribed by: Emily Mcgrath on 05/17/22 204 Fluconazole (Diflucan) 150 Mg Tablet, 150 MG PO DAILY Prescribed by: TEMITOPE DUENAS on 05/28/21 1109 Hydrocodone/Acetaminophen (Hydrocodone-Acetamin 5-325 mg) 5 Mg-325 Mg Tablet, 1 TAB PO Q4H PRN for PAIN-MODERATE (5-7) Prescribed by: William Morrissey on 10/11/21 1119 Levofloxacin (Levofloxacin) 500 Mg Tablet, 500 MG PO DAILY Prescribed by: ELIZABEHT LÓPEZ on 12/16/21 1722 Medroxyprogesterone Acetate (Depo-Provera) 150 Mg/1 Ml Vial, (Reported) Entered as Reported by: IVAN TRACEY on 05/28/21 1035 Naproxen (Naproxen) 500 Mg Tablet, (Reported) Entered as Reported by: BRANDEE ALCANTARA on 03/06/19 0914 Ondansetron (Ondansetron Odt) 8 Mg Tab.rapdis, 8 MG PO Q8H PRN for nausea Prescribed by: MINH RENO on 06/08/21 1721 Ondansetron (Ondansetron Odt) 4 Mg Tab.rapdis, 4 MG PO Q8H PRN for NAUSEA/VOMITING Prescribed by: MINH RENO on 09/22/21 2324 Prednisone (Prednisone) 20 Mg Tab, 40 MG PO DAILY Prescribed by: ELIZABETH LÓPEZ on 04/19/22 1553 Review of Systems Review of Systems Constitutional: see HPI (EMILY MCGRATH APRN) Past Oluleyt-Akvzbg-Jgfoqc Hx Patient Social History Tobacco Use?: No Use of E-Cig and/or Vaping dev: No Substance use?: No Alcohol Use?: No Pt feels they are or have been: No (EMILY MCGRATH APRN) Immunizations Up To Date Tetanus Booster (TDap): Less than 5yrs PED Vaccines UTD: No Influenza Vaccine Up-to-Date: Yes; Up-to-Date First/Initial COVID19 Vaccinat: 2019 Second COVID19 Vaccination Nacho: 2019 Third COVID19 Vaccination Date: 2020 (EMILY MCGRATH APRN) Past Medical History Surgery/Hospitalization HX: GASTRIC SLEEVE, CHOLECYSTECTOMY, APPENDECTOMY, CSECTION, COLONOSCOPY HASHIMOTOS, CELIAC Surgeries: No (gastric sleeve) Section, Gallbladder Respiratory: No Cardiac: No Neurological: No Last Menstrual Period: Apr 09, 2022 Reproductive Disorders: No GLOVE PRESSER History: IUD Genitourinary: No Gastrointestinal: No Musculoskeletal: No Endocrine: No HEENT: No Cancer: No Psychosocial: No Integumentary: No Blood Disorders: No (EMILY MCGRATH APRN) Family Medical History No Pertinent Family Hx Bariatric Surgery (EMILY MCGRATH APRN) Physical Exam Vital Signs Vital Signs - First Documented 05/17/22 18:05 Temp 35.6 Pulse 103 Resp 18 B/P (MAP) 147/84 (105) Pulse Ox 100 O2 Delivery Room Air (TAMMY,GRECIA K DO) Vital Signs Capillary Refill : Less Than 3 Seconds (EMILY MCGRATH APRN) Height, Weight, BMI Height: 5'4.00" Weight: 246lbs. oz. 111.555375vq; 46.00 BMI Method:Stated General Appearance: WD/WN, no apparent distress Neck: supple, normal inspection Cardiovascular: regular rate, rhythm, no edema, no gallop, no JVD Respiratory: lungs clear, normal breath sounds, no respiratory distress, no accessory muscle use Gastrointestinal: soft, tenderness (Lower abdomen) Pelvic: normal external exam, no cerv. motion tender, no masses; No discharge, No vaginal bleeding; other (Tenderness to palpation of right external) Extremities: normal range of motion, normal inspection Neurologic/Psychiatric: alert, normal mood/affect, oriented x 3 Skin: normal color, warm/dry (EMILY MCGRATH APRN) Progress/Results/Core Measures Suspected Sepsis SIRS Temperature: Pulse: 103 Respiratory Rate: 18 Laboratory Tests 05/17/22 18:43: White Blood Count 6.9 Blood Pressure 147 /84 Mean: 105 Laboratory Tests 05/17/22 18:43: Creatinine 0.65, Platelet Count 235, Total Bilirubin 0.2 (EMILY MCGRATH APRN) Results/Orders Lab Results Laboratory Tests Test 05/17/22 18:13 05/17/22 18:43 05/17/22 20:33 Range/Units Urine Color YELLOW Urine Clarity CLEAR Urine pH 6.0 5-9 Urine Specific [place] >=1.030 1.016-1.022 Urine Protein NEGATIVE NEGATIVE Urine Glucose (UA) NEGATIVE NEGATIVE Urine Ketones NEGATIVE NEGATIVE Urine Nitrite NEGATIVE NEGATIVE Urine Bilirubin NEGATIVE NEGATIVE Urine Urobilinogen 0.2 < = 1.0 MG/DL Urine Leukocyte Esterase NEGATIVE NEGATIVE Urine RBC (Auto) NEGATIVE NEGATIVE Urine RBC NONE /HPF Urine WBC RARE /HPF Urine Squamous Epithelial Cells 10-25 H /HPF Urine Crystals NONE /LPF Urine Bacteria FEW H /HPF Urine Casts NONE /LPF Urine Mucus MODERATE H /LPF Urine Culture Indicated NO White Blood Count 6.9 4.3-11.0 10^3/uL Red Blood Count 4.20 3.80-5.11 10^6/uL Hemoglobin 10.0 L 11.5-16.0 g/dL Hematocrit 32 L 35-52 % Mean Corpuscular Volume 77 L 80-99 fL Mean Corpuscular Hemoglobin 24 L 25-34 pg Mean Corpuscular Hemoglobin Concent 31 L 32-36 g/dL Red Cell Distribution Width 15.0 H 10.0-14.5 % Platelet Count 235 130-400 10^3/uL Mean Platelet Volume 11.8 9.0-12.2 fL Immature Granulocyte % (Auto) 0 % Neutrophils (%) (Auto) 45 42-75 % Lymphocytes (%) (Auto) 46 H 12-44 % Monocytes (%) (Auto) 6 0-12 % Eosinophils (%) (Auto) 3 0-10 % Basophils (%) (Auto) 0 0-10 % Neutrophils # (Auto) 3.1 1.8-7.8 10^3/uL Lymphocytes # (Auto) 3.2 1.0-4.0 10^3/uL Monocytes # (Auto) 0.4 0.0-1.0 10^3/uL Eosinophils # (Auto) 0.2 0.0-0.3 10^3/uL Basophils # (Auto) 0.0 0.0-0.1 10^3/uL Immature Granulocyte # (Auto) 0.0 0.0-0.1 10^3/uL Sodium Level 137 135-145 MMOL/L Potassium Level 3.9 3.6-5.0 MMOL/L Chloride Level 107 98-107 MMOL/L Carbon Dioxide Level 21 21-32 MMOL/L Anion Gap 9 5-14 MMOL/L Blood Urea Nitrogen 7 7-18 MG/DL Creatinine 0.65 0.60-1.30 MG/DL Estimat Glomerular Filtration Rate 126 BUN/Creatinine Ratio 11 Glucose Level 79 70-105 MG/DL Calcium Level 9.1 8.5-10.1 MG/DL Corrected Calcium 9.0 8.5-10.1 MG/DL Total Bilirubin 0.2 0.1-1.0 MG/DL Aspartate Amino Transf (AST/SGOT) 20 5-34 U/L Alanine Aminotransferase (ALT/SGPT) 22 0-55 U/L Alkaline Phosphatase 65 40-136 U/L Total Protein 7.4 6.4-8.2 GM/DL Albumin 4.1 3.2-4.5 GM/DL Thyroid Stimulating Hormone (TSH) 7.52 H 0.35-4.94 UIU/ML Human Chorionic Gonadotropin, Quant 7976 H <5 MIU/ML (TAMMYGRECIA K DO) Vital Signs/I&O 05/17/22 05/17/22 18:05 21:39 Temp 35.6 Pulse 103 92 Resp 18 18 B/P (MAP) 147/84 (105) 145/86 Pulse Ox 100 100 O2 Delivery Room Air Room Air (ALLISON MUNOZA K DO) Vital Signs/I&O Capillary Refill : Less Than 3 Seconds (EMILY MCGRATH APRN) Blood Pressure Mean: 105 Progress Note #1: Time: 18:54 Progress Note Patient seen and evaluated, sitting comfortably on the bed, no acute distress. Based on exam and symptoms differential diagnosis includes but is not limited to threatened miscarriage, ectopic , subchorionic hemorrhage, molar pr egnancy, hemorrhagic cystitis, PID. Work-up initiated, CBC, CMP, hCG, UA, TSH, ultrasound. Patient declined any pain medicine at this time. Progress Note #2: Time: 19:35 Progress Note Labs reviewed, CBC shows low hemoglobin 10.0, low hematocrit 32, low MCV 77, low MCH 24, low MCHC 31. Will prescribe oral iron supplements. CMP grossly normal. hCG 7976, previous was 148 on 05/08. Urine positive for few bacteria, likely an unclean sample due to 10-25 squamous epithelial cells. Will not treat for urinary tract infection since she is negative for leukocytes, nitrites, WBCs. Patient to ultrasound at this time. Progress Note #3: Time: 20:37 Progress Note Pelvic exam completed, no vaginal bleeding noted. Will wait for wet prep results. Ultrasound reviewed, intrauterine noted, measuring at 5 weeks 3 days no pole at this time, no detected heartbeat. hCG levels slightly lower than 5 weeks 3 days, patient informed. Progress Note #4: Time: 21:09 Progress Note TSH elevated at 7.52. Will instruct patient to follow-up with her primary care provider regarding this. Discharge directions and return precautions provided. (EMILY MCGRATH APRN) Diagnostic Imaging Diagonstic Imaging: Ultrasound Plain Films/CT/US/NM/MRI: pelvis Comments [facility], [place] NAME: TRAVON CLAIRE [facility] REC#: [id number] PT STATUS: REG ER : 1995 PHYSICIAN: EMILY MCGRATH APRN ADMIT DATE: 05/17/22/ER Draft Date of Exam:05/17/22 US OB<14 WKS SNGLE W/TRANSVAG INDICATION: Vaginal bleeding. FINDINGS: The uterus measures 8.6 x 5.3 x 6.3 cm. There is a gestational sac measuring 0.8 cm. This correlates with a gestational age of 5 weeks 3 days. Both ovaries are normal in size, morphology and demonstrates normal blood flow. heartrate is not visualized. Yolk sac is visualized. IMPRESSION: Findings suspect for a very early intrauterine gestation of 5 weeks 3 days. Heart rate is not yet detected. Estimated date of confinement by today's ultrasound is January 14, 2023. Recommend correlation with beta hCG and follow-up ultrasound as clinically warranted. Dictated on workstation # [id number] Dict: 05/17/222025 Trans: 05/17/222030 ACB [id number] Interpreted by: JUANITO MASON MD Electronically signed by: (EMILY MCGRATH APRN) Departure Impression Primary Impression: Iron deficiency anemia Disposition: HOME, SELF-CARE Condition: Stable Departure-Patient Inst. Referrals: [facility] [place] (PCP/Family) Primary Care Physician Patient Instructions: Anemia Caused by Low Iron Add. Discharge Instructions: Call your OB and schedule a follow-up appointment. Take the iron supplement as prescribed. Your TSH level was elevated at 7.52, please follow-up with your primary care provider to see about increasing your levothyroxine. Return for severe pain, heavy vaginal bleeding (greater than 1 pad per hour or large clots), lightheadedness, shortness of breath, high fever, or any other new, concerning, or worsening symptoms. All discharge instructions reviewed with patient and/or family. Voiced u nderstanding. Scripts Ferrous Sulfate (Iron) 325 Mg (65 Mg Iron) Tablet 325 MG PO UD, #12 TAB 0 Refills Take 1 tablet on Tuesday, Tuesday, and Tuesday Prov: EMILY MCGRATH APRN 05/17/22 I WAS PHYSICALLY PRESENT ER PHYSICIAN, BUT I WAS NOT INVOLVED IN ANY DECISION MAKING OR ANY CARE OF THIS PATIENT, AND I AM NOT COLLABORATING PHYSICIAN. (GRECIA MUNOZ DO) EMILY MCGRATH APRN May 17, 2022 18:53 GRECIA MUNOZ DO May 18, 2022 05:29
[2022-05-17 18:56] LABS: BASOPHILS % (AUTO) 0 % (0-10); EOSINOPHILS # (AUTO) 0.2 10^3/uL (0.0-0.3); EOSINOPHILS % (AUTO) 3 % (0-10); HEMATOCRIT 32 % (35-52); LYMPHOCYTES # (AUTO) 3.2 10^3/uL (1.0-4.0); LYMPHOCYTES % (AUTO) 46 % (12-44); MEAN CORPUSCULAR HEMOGLOBIN 24 pg (25-34); MEAN CORPUSCULAR HGB CONC 31 g/dL (32-36); MEAN CORPUSCULAR VOLUME 77 fL (80-99); MEAN PLATELET VOLUME 11.8 fL (9.0-12.2); MONOCYTES # (AUTO) 0.4 10^3/uL (0.0-1.0); MONOCYTES % (AUTO) 6 % (0-12); NEUTROPHILS # (AUTO) 3.1 10^3/uL (1.8-7.8); NEUTROPHILS % (AUTO) 45 % (42-75); PLATELET COUNT 235 10^3/uL (130-400); WHITE BLOOD COUNT 6.9 10^3/uL (4.3-11.0)
[2022-05-17 19:04] LABS: BACTERIA,URINE FEW /HPF; WBC,URINE RARE /HPF
[2022-05-17 19:05] LABS: ALBUMIN 4.1 GM/DL (3.2-4.5); POTASSIUM 3.9 MMOL/L (3.6-5.0)
[2022-05-17 19:07] LABS: CALCIUM 9.1 MG/DL (8.5-10.1)
[2022-05-17 19:08] LABS: TOTAL PROTEIN 7.4 GM/DL (6.4-8.2)
[2022-05-17 19:10] LABS: BILIRUBIN,TOTAL 0.2 MG/DL (0.1-1.0)
[2022-05-17 19:11] LABS: CREATININE SERUM 0.65 MG/DL (0.60-1.30)
--- NOTE | 2022-05-17 20:31 | Diagnostic Imaging Report ---
INDICATION: Vaginal bleeding. FINDINGS: The uterus measures 8.6 x 5.3 x 6.3 cm. There is a gestational sac measuring 0.8 cm. This correlates with a gestational age of 5 weeks 3 days. Both ovaries are normal in size, morphology and demonstrates normal blood flow. heartrate is not visualized. Yolk sac is visualized. IMPRESSION: Findings suspect for a very early intrauterine gestation of 5 weeks 3 days. Heart rate is not yet detected. Estimated date of confinement by today's ultrasound is January 14, 2023. Recommend correlation with beta hCG and follow-up ultrasound as clinically warranted. Dictated by: Dictated on workstation # [id number]
[2022-05-17] MEDS ORDERED: FERR-84 PO (20:44)
[2022-05-17 21:39] VITALS: BP 145/86
== END 2022-05-17 21:39 | disposition home or self-care (01) ==
LOC: EDUNIT# 17:51 → ER 17:53
DX: O99.011 Anemia complicating pregnancy, first trimester (principal); D50.9 Iron deficiency anemia, unspecified; Z3A.01 Less than 8 weeks gestation of pregnancy
CPT/HCPCS: 36415; 76801; 76817; 80053; 81000; 84443; 84702; 84703; 85025; 86900; 86901; 87210; 87491; 87591

== ENCOUNTER 2022-06-08 07:07 | Emergency (ER) | payer MEDICAID ==
[~2022-06-08] VITALS: Ht 163 cm; Wt 122.0 kg
[~2022-06-08 07:07] MED LIST changes: +FERR-84 PO
[2022-06-08] MEDS ORDERED: MECLIZINE 25 MG (ANTIVERT) TAB PO ONE (08:00)
[2022-06-08] MEDS ORDERED: LACTATED RINGERS 1,000 ML IV ONE (08:00)
--- NOTE | 2022-06-08 08:08 | ED GI ---
General Chief Complaint: Abdominal/GI Problems Stated Complaint: 8 WEEKS PREG | VOMITING | NAUSEA Nursing Triage Note: Patient ambulatory to ER w c/o vomitting for 1 week and having lower abdominal cramping. Patient states she is 8 weeks 4 days and her first appt with Dr. Daley at [facility] is tuesday [phone]. hx of miscarriages. Patient denies any bleeding or discharge at this time. Source of Information: Patient Exam Limitations: No Limitations History of Present Illness Date Seen by Provider: Jun 08, 2022 Time Seen by Provider: 07:40 Initial Comments This 26-year-old 4 para 1 at about 8 weeks gestational age presents to the emergency room with complaints of persistent nausea and vomiting for about 1 week. She has had some lower abdominal cramping as well. She denies any vaginal discharge or bleeding. She did have some dysuria yesterday. She reports an ultrasound performed at the [facility] in [place] demonstrated a viable intrauterine . Her datapower developer is Dr. Daley at [facility] in [place]. Maryanne Ney is her primary care provider at [facility]. LMP was April 09, 2023. She took Zofran last night at 1900 but states that was not very effective. She reports allergy to Phenergan and does not want any medication in that category of antiemetics including Compazine. She states Benadryl makes her feel dysphoric. Allergies and Home Medications Allergies Coded Allergies: Penicillins (Verified Allergy, Unknown, 12/08/18) pt states she is not sure if she has ever had a reaction, but states her mom is allergic to penicillin so she was told to list it as an allergy codeine (Verified Allergy, Unknown, 09/22/21) promethazine (Verified Allergy, Unknown, 09/22/21) Patient Home Medication List Home Medication List Reviewed: Yes Alprazolam (Xanax) 0.25 Mg Tablet, 0.25 MG PO BID PRN for ANXIETY Prescribed by: TEMITOPE DUENAS on 07/02/19 2200 Azithromycin (Azithromycin) 250 Mg Tablet, 250 MG PO UD Prescribed by: ELIZABETH LÓPEZ on 04/19/22 1553 Cefdinir (Cefdinir) 300 Mg Capsule, 300 MG PO BID Prescribed by: TEMITOPE DUENAS on 05/28/21 1109 Cephalexin (Cephalexin) 500 Mg Capsule, (Reported) Entered as Reported by: IVAN TRACEY on 05/28/21 1035 Cephalexin (Cephalexin) 500 Mg Tablet, 500 MG PO TID Prescribed by: JOSE PERLA on 06/08/22 1002 Clindamycin HCl (Clindamycin HCl) 300 Mg Capsule, 300 MG PO TID Prescribed by: SOHAM CHAPIN on 10/05/21 1809 Dicyclomine HCl (Dicyclomine HCl) 20 Mg Tablet, 20 MG PO Q6H PRN for abdominal cramping Prescribed by: MINH RENO on 06/08/21 1721 Doxylamine Succinate (Unisom) 25 Mg Tablet, 25 MG PO HS PRN for NAUSEA/VOMITING Prescribed by: JOSE PERLA on 06/08/22 1002 Ferrous Sulfate (Iron) 325 Mg (65 Mg Iron) Tablet, 325 MG PO UD Prescribed by: Emily Barnes on 05/17/22 2044 Fluconazole (Diflucan) 150 Mg Tablet, 150 MG PO DAILY Prescribed by: TEMITOPE DUENAS on 05/28/21 1109 Hydrocodone/Acetaminophen (Hydrocodone-Acetamin 5-325 mg) 5 Mg-325 Mg Tablet, 1 TAB PO Q4H PRN for PAIN-MODERATE (5-7) Prescribed by: William Morrissey on 10/11/21 1119 Levofloxacin (Levofloxacin) 500 Mg Tablet, 500 MG PO DAILY Prescribed by: ELIZABETH LÓPEZ on 12/16/21 1722 Medroxyprogesterone Acetate (Depo-Provera) 150 Mg/1 Ml Vial, (Reported) Entered as Reported by: IVAN TARCEY on 05/28/21 1035 Naproxen (Naproxen) 500 Mg Tablet, (Reported) Entered as Reported by: BRANDEE ALCANTARA on 03/06/19 0914 Ondansetron (Ondansetron Odt) 8 Mg Tab.rapdis, 8 MG PO Q8H PRN for nausea Prescribed by: MINH RENO on 06/08/21 1721 Ondansetron (Ondansetron Odt) 4 Mg Tab.rapdis, 4 MG PO Q8H PRN for NAUSEA/VOMITING Prescribed by: MINH RENO on 09/22/21 2324 Prednisone (Prednisone) 20 Mg Tab, 40 MG PO DAILY Prescribed by: ELIZABETH LÓPEZ on 04/19/22 1553 Pyridoxine HCl (Vitamin B-6) 25 Mg Tablet, 25 MG PO HS PRN for NAUSEA/VOMITING Prescribed by: JOSE PERLA on 06/08/22 1002 Review of Systems Review of Systems Constitutional: no symptoms reported EENTM: No Symptoms Reported Respiratory: No Symptoms Reported Cardiovascular: No Symptoms Reported Gastrointestinal: See HPI Genitourinary: See HPI Musculoskeletal: no symptoms reported Skin: no symptoms reported Psychiatric/Neurological: No Symptoms Reported Endocrine: No Symptoms Reported Hematologic/Lymphatic: No Symptoms Reported Past Gydalkf-Oloqyn-Xdzklp Hx Patient Social History Tobacco Use?: No Substance use?: No Alcohol Use?: No Immunizations Up To Date Tetanus Booster (TDap): Less than 5yrs PED Vaccines UTD: No First/Initial COVID19 Vaccinat: 2019 Second COVID19 Vaccination Nacho: 2019 COVID19 Vaccination Date: 2020 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 Past Medical History Surgery/Hospitalization HX: GASTRIC SLEEVE, CHOLECYSTECTOMY, APPENDECTOMY, CSECTION, COLONOSCOPY HASHIMOTOS, CELIAC Surgeries: Yes Abdominal (Gastric sleeve, EGD, colonoscopy), Appendectomy, Bladder Surgery (Cystoscopy with bladder stretching), Section, Gallbladder Respiratory: No Cardiac: No Neurological: No Last Menstrual Period: Apr 09, 2022 Reproductive Disorders: No 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 oz. 111.805659sn; 45.00 BMI Method:Stated General Appearance: WD/WN, no apparent distress HEENT: normal ENT inspection Neck: normal inspection Respiratory: lungs clear, normal breath sounds, no respiratory distress Cardiovascular: regular rate, rhythm, no edema Gastrointestinal: normal bowel sounds, soft, tenderness (Minimally tender in the suprapubic region) Extremities: normal inspection Neurologic/Psychiatric: no motor/sensory deficits, alert, normal mood/affect, oriented x 3 Skin: normal color, warm/dry Progress/Results/Core Measures Results/Orders Lab Results Laboratory Tests Test 06/08/22 08:10 06/08/22 09:00 Range/Units White Blood Count 6.8 4.3-11.0 10^3/uL Red Blood Count 4.45 3.80-5.11 10^6/uL Hemoglobin 10.4 L 11.5-16.0 g/dL Hematocrit 33 L 35-52 % Mean Corpuscular Volume 74 L 80-99 fL Mean Corpuscular Hemoglobin 23 L 25-34 pg Mean Corpuscular Hemoglobin Concent 31 L 32-36 g/dL Red Cell Distribution Width 14.6 H 10.0-14.5 % Platelet Count 255 130-400 10^3/uL Mean Platelet Volume 11.3 9.0-12.2 fL Immature Granulocyte % (Auto) 0 % Neutrophils (%) (Auto) 63 42-75 % Lymphocytes (%) (Auto) 28 12-44 % Monocytes (%) (Auto) 8 0-12 % Eosinophils (%) (Auto) 0 0-10 % Basophils (%) (Auto) 0 0-10 % Neutrophils # (Auto) 4.3 1.8-7.8 10^3/uL Lymphocytes # (Auto) 1.9 1.0-4.0 10^3/uL Monocytes # (Auto) 0.6 0.0-1.0 10^3/uL Eosinophils # (Auto) 0.0 0.0-0.3 10^3/uL Basophils # (Auto) 0.0 0.0-0.1 10^3/uL Immature Granulocyte # (Auto) 0.0 0.0-0.1 10^3/uL Sodium Level 135 135-145 MMOL/L Potassium Level 3.7 3.6-5.0 MMOL/L Chloride Level 105 98-107 MMOL/L Carbon Dioxide Level 22 21-32 MMOL/L Anion Gap 8 5-14 MMOL/L Blood Urea Nitrogen 5 L 7-18 MG/DL Creatinine 0.60 0.60-1.30 MG/DL Estimat Glomerular Filtration Rate 128 BUN/Creatinine Ratio 8 Glucose Level 84 70-105 MG/DL Calcium Level 8.8 8.5-10.1 MG/DL Corrected Calcium 9.0 8.5-10.1 MG/DL Magnesium Level 1.9 1.6-2.4 MG/DL Total Bilirubin 0.4 0.1-1.0 MG/DL Aspartate Amino Transf (AST/SGOT) 15 5-34 U/L Alanine Aminotransferase (ALT/SGPT) 10 0-55 U/L Alkaline Phosphatase 60 40-136 U/L Total Protein 6.6 6.4-8.2 GM/DL Albumin 3.7 3.2-4.5 GM/DL Human Chorionic Gonadotropin, Quant [id number] H <5 MIU/ML Urine Color YELLOW Urine Clarity CLEAR Urine pH 8.0 5-9 Urine Specific [place] 1.015 L 1.016-1.022 Urine Protein NEGATIVE NEGATIVE Urine Glucose (UA) NEGATIVE NEGATIVE Urine Ketones NEGATIVE NEGATIVE Urine Nitrite NEGATIVE NEGATIVE Urine Bilirubin NEGATIVE NEGATIVE Urine Urobilinogen 0.2 < = 1.0 MG/DL Urine Leukocyte Esterase 2+ H NEGATIVE Urine RBC (Auto) NEGATIVE NEGATIVE Urine RBC NONE /HPF Urine WBC 5-10 H /HPF Urine Squamous Epithelial Cells 10-25 H /HPF Urine Crystals NONE /LPF Urine Bacteria MODERATE H /HPF Urine Casts NONE /LPF Urine Mucus NEGATIVE /LPF Urine Culture Indicated YES Micro Results Microbiology 06/08/22 Urine Culture - Final, Complete Gram Pos Mixed Bacterial Beba My Orders Orders - JOSE CHRISTIAN MD Lactated Ringers (Lr 1000 Ml Iv Solution (06/08/22 08:00) Ed Iv/Invasive Line Start (06/08/22 07:55) Cbc With Automated Diff (06/08/22 07:55) Comprehensive Metabolic Panel (06/08/22 07:55) Hcg,Quantitative (06/08/22 07:55) Magnesium (06/08/22 07:55) Ua Culture If Indicated (06/08/22 07:55) Meclizine Tablet (Antivert Tablet) (06/08/22 08:00) Urine Culture (06/08/22 09:00) Medications Given in ED Vital Signs/I&O 06/08/22 06/08/22 07:23 10:06 Temp 36.9 Pulse 99 84 Resp 18 20 B/P (MAP) 138/65 (89) 135/80 Pulse Ox 99 100 O2 Delivery Room Air Room Air Blood Pressure Mean: 89 Progress Progress Note #1: Time: 08:09 Progress Note Patient is requesting treatment for nausea and vomiting but seems fairly resistant to using antiemetic medications. She was offered meclizine but feels like she may not be able to swallow a pill. She was offered Reglan IV as an alt ernative. She does not want to try Reglan, although she does not recall having any negative experiences with Reglan in the past. She elects to try the meclizine. In the meantime, we will hydrate her with IV fluids and check basic labs and UA. Progress Note #2: Progress Note HCG was appropriate for GA. UA was possibly suggestive of UTI vs contamination. Labs were otherwise unremarkable. She had improvement in symptoms with meclizine and IV fluids. Keflex was prescribed for UTI and doxylamine and vitamin B6 were prescribed for nausea. Discharge instructions were reviewed with patient. Departure Impression Primary Impression: Nausea/vomiting in Additional Impression: Urinary tract infection Qualified Codes: N39.0 - Urinary tract infection, site not specified Disposition: 01 HOME, SELF-CARE Condition: Improved Departure-Patient Inst. Decision time for Depature: 09:54 Referrals: [facility] (PCP/Family) Primary Care Physician Patient Instructions: Nausea and Vomiting of Add. Discharge Instructions: Drink plenty of clear liquids to stay well-hydrated. Complete your antibiotics as prescribed. For controlling nausea you may use meclizine as prescribed. Alternatively, you may try a nightly treatment of doxylamine and vitamin B6 at bedtime. Follow-up with your primary care provider or datapower developer on or Tuesday to review urine culture results. Eat small quantities of healthy foods often throughout the day. This eating pattern tends to reduce nausea. Return to care if you have worsening symptoms despite following these instructions. All discharge instructions reviewed with patient and/or family. Voiced understanding. Scripts Pyridoxine HCl (Vitamin B-6) 25 Mg Tablet 25 MG PO HS PRN for NAUSEA/VOMITING, #30 TAB Take with doxylamine at bedtime to prevent nausea and vomiting associated with throughout the next day. Prov: JOSE CHRISTIAN MD 06/08/22 Doxylamine Succinate (Unisom) 25 Mg Tablet 25 MG PO HS PRN for NAUSEA/VOMITING, #30 TAB Use nightly in combination with vitamin B6 to prevent associated nausea and vomiting. Prov: JOSE CHRISTIAN MD 06/08/22 Cephalexin (Cephalexin) 500 Mg Tablet 500 MG PO TID, #21 TAB Prov: JOSE CHRISTIAN MD 06/08/22 JOSE CHRISTIAN MD Jun 08, 2022 08:08
[2022-06-08 08:22] LABS: BASOPHILS % (AUTO) 0 % (0-10); EOSINOPHILS % (AUTO) 0 % (0-10); HEMATOCRIT 33 % (35-52); HEMOGLOBIN 10.4 g/dL (11.5-16.0); LYMPHOCYTES # (AUTO) 1.9 10^3/uL (1.0-4.0); LYMPHOCYTES % (AUTO) 28 % (12-44); MEAN CORPUSCULAR HEMOGLOBIN 23 pg (25-34); MEAN CORPUSCULAR HGB CONC 31 g/dL (32-36); MEAN CORPUSCULAR VOLUME 74 fL (80-99); MEAN PLATELET VOLUME 11.3 fL (9.0-12.2); MONOCYTES # (AUTO) 0.6 10^3/uL (0.0-1.0); MONOCYTES % (AUTO) 8 % (0-12); NEUTROPHILS # (AUTO) 4.3 10^3/uL (1.8-7.8); NEUTROPHILS % (AUTO) 63 % (42-75); PLATELET COUNT 255 10^3/uL (130-400); WHITE BLOOD COUNT 6.8 10^3/uL (4.3-11.0)
[2022-06-08 08:31] LABS: ALBUMIN 3.7 GM/DL (3.2-4.5); POTASSIUM 3.7 MMOL/L (3.6-5.0)
[2022-06-08 08:32] LABS: CALCIUM 8.8 MG/DL (8.5-10.1)
[2022-06-08 08:33] LABS: TOTAL PROTEIN 6.6 GM/DL (6.4-8.2)
[2022-06-08 08:35] LABS: BILIRUBIN,TOTAL 0.4 MG/DL (0.1-1.0)
[2022-06-08 08:37] LABS: CREATININE SERUM 0.6 MG/DL (0.60-1.30)
[2022-06-08 08:40] LABS: MAGNESIUM 1.9 MG/DL (1.6-2.4)
[2022-06-08 09:11] LABS: BILIRUBIN,URINE NEGATIVE (NEGATIVE); CLARITY,URINE CLEAR; COLOR,URINE YELLOW; GLUCOSE, URINE (UA) NEGATIVE (NEGATIVE); KETONES,URINE NEGATIVE (NEGATIVE); LEUKOCYTE ESTERASE ,URINE 2+ (NEGATIVE); NITRITE,URINE NEGATIVE (NEGATIVE); PROTEIN,URINE NEGATIVE (NEGATIVE)
[2022-06-08 09:23] LABS: BACTERIA,URINE MODERATE /HPF
[2022-06-08] MEDS ORDERED: DOXY25TA56 PO (10:02)
[2022-06-08] MEDS ORDERED: CEPH500T PO (10:02)
[2022-06-08] MEDS ORDERED: PYRI25TA3 PO (10:02)
[2022-06-08 10:06] VITALS: BP 135/80
== END 2022-06-08 10:06 | disposition home or self-care (01) ==
LOC: EDUNIT# 07:07 → ER 07:09
DX: O23.41 Unspecified infection of urinary tract in pregnancy, first trimester (principal); N39.0 Urinary tract infection, site not specified; Z90.49 Acquired absence of other specified parts of digestive tract; Z88.0 Allergy status to penicillin; Z3A.08 8 weeks gestation of pregnancy
CPT/HCPCS: 36415; 80053; 81000; 83735; 84702; 85025; 87088; 99283

== ENCOUNTER 2022-08-12 00:50 | Emergency (ER) | payer MEDICAID ==
[~2022-08-12] VITALS: Ht 162.5 cm; Wt 121.9 kg
[~2022-08-12 00:50] MED LIST changes: +CEPH500T PO; +DOXY25TA56 PO; +PYRI25TA3 PO
--- NOTE | 2022-08-12 01:15 | ED General ---
General Stated Complaint: 16WKS PREG,CELESTIN Source of Information: Patient History of Present Illness Date Seen by Provider: Aug 12, 2022 Time Seen by Provider: 01:05 Initial Comments PT ARRIVES VIA POV FROM HOME PT IS 16 WEEKS, 6 DAYS --SHE IS AB 2 SHE HAS HAD A HEADACHE SINCE 1400 THIS AFTERNOON HEADACHE MOVES AROUND FROM ONE SABIANIST TO THE OTHER, TO FOREHEAD AND FRONTAL SCALP NOTHING WORSENS OR IMPROVES HEADACHE SHE HAS NOT TAKEN ANY TYLENOL OR ANYTHING FOR HER HEADACHE, SHE TRIED RESTING AND IT DID NOT HELP HEADACHE NO VISION CHANGES NO DIZZINESS OR SYNCOPE NO PARESTHESIAS OR MOTOR DEFICITS NO NAUSEA/VOMITING NO NECK PAIN OR STIFFNESS NO FEVER OR RECENT ILLNESS NO SINUS PAIN OR DRAINAGE HAS HAD SOME MILD INTERMITTENT, MID LOWER ABDOMINAL CRAMPING. NOT AT THIS TIME. NO VAGINAL BLEEDING OR DISCHARGE SHE HAD PRE-ECLAMPSIA WITH PRIOR SHE HAS NOT HAD ANY PROBLEMS WITH THIS . HER NEXT OB APPOINTMENT IS 08/20/[address] Anselmo DANGELO AT [place]. PT HAS HISTORY OF HEADACHES. SHE HAS HAD A MULTITUDE OF ER VISITS FOR VARIOUS COMPLAINTS, MOSTLY VARIOUS PAIN COMPLAINTS, INCLUDING CHRONIC HEADACHE COMPLAINTS. PCP [facility] MANAGER: DR. FILEMON DANGELO, [place] Allergies and Home Medications Allergies Coded Allergies: Penicillins (Verified Allergy, Unknown, 12/08/18) pt states she is not sure if she has ever had a reaction, but states her mom is allergic to penicillin so she was told to list it as an allergy codeine (Verified Allergy, Unknown, 09/22/21) promethazine (Verified Allergy, Unknown, 09/22/21) Patient Home Medication List Home Medication List Reviewed: Yes Alprazolam (Xanax) 0.25 Mg Tablet, 0.25 MG PO BID PRN for ANXIETY Prescribed by: TEMITOPE DUENAS on 07/02/19 2200 Azithromycin (Azithromycin) 250 Mg Tablet, 250 MG PO UD Prescribed by: ELIZABETH LÓPEZ on 04/19/22 1553 Cefdinir (Cefdinir) 300 Mg Capsule, 300 MG PO BID Prescribed by: TEMITOPE DUENAS on 05/28/21 1109 Cephalexin (Cephalexin) 500 Mg Capsule, (Reported) Entered as Reported by: IVAN TRACEY on 05/28/21 1035 Cephalexin (Cephalexin) 500 Mg Tablet, 500 MG PO TID Prescribed by: JOSE PERLA on 06/08/22 1002 Clindamycin HCl (Clindamycin HCl) 300 Mg Capsule, 300 MG PO TID Prescribed by: SOHAM CHAPIN on 10/05/21 1809 Dicyclomine HCl (Dicyclomine HCl) 20 Mg Tablet, 20 MG PO Q6H PRN for abdominal cramping Prescribed by: MINH RENO on 06/08/21 1721 Doxylamine Succinate (Unisom) 25 Mg Tablet, 25 MG PO HS PRN for NAUSEA/VOMITING Prescribed by: JOSE PERLA on 06/08/22 1002 Ferrous Sulfate (Iron) 325 Mg (65 Mg Iron) Tablet, 325 MG PO UD Prescribed by: Emily Barnes on 05/17/22 204 Fluconazole (Diflucan) 150 Mg Tablet, 150 MG PO DAILY Prescribed by: TEMITOPE DUENAS on 05/28/21 1109 Hydrocodone/Acetaminophen (Hydrocodone-Acetamin 5-325 mg) 5 Mg-325 Mg Tablet, 1 TAB PO Q4H PRN for PAIN-MODERATE (5-7) Prescribed by: William Morrissey on 10/11/21 1119 Levofloxacin (Levofloxacin) 500 Mg Tablet, 500 MG PO DAILY Prescribed by: ELIZABETH LÓPEZ on 12/16/21 1722 Medroxyprogesterone Acetate (Depo-Provera) 150 Mg/1 Ml Vial, (Reported) Entered as Reported by: IVAN TRACEY on 05/28/21 1035 Naproxen (Naproxen) 500 Mg Tablet, (Reported) Entered as Reported by: BRANDEE ALCANTARA on 03/06/19 0914 Nitrofurantoin Monohyd/M-Cryst (Macrobid 100 mg Capsule) 100 Mg Capsule, 1 TAB PO BID Prescribed by: GRECIA MUNOZ on 08/12/22 0215 Ondansetron (Ondansetron Odt) 8 Mg Tab.rapdis, 8 MG PO Q8H PRN for nausea Prescribed by: MINH RENO on 06/08/21 172 Ondansetron (Ondansetron Odt) 4 Mg Tab.rapdis, 4 MG PO Q8H PRN for NAUS EA/VOMITING Prescribed by: MINH RENO on 09/22/21 2324 Prednisone (Prednisone) 20 Mg Tab, 40 MG PO DAILY Prescribed by: ELIZABETH LÓPEZ on 04/19/22 1553 Pyridoxine HCl (Vitamin B-6) 25 Mg Tablet, 25 MG PO HS PRN for NAUSEA/VOMITING Prescribed by: JOSE PERLA on 06/08/22 1002 Review of Systems Review of Systems Constitutional: no symptoms reported; No chills, No diaphoresis, No dizziness, No fever, No malaise, No weakness EENTM: no symptoms reported Respiratory: no symptoms reported Cardiovascular: no symptoms reported Gastrointestinal: see HPI Genitourinary: no symptoms reported : Yes Musculoskeletal: no symptoms reported Skin: no symptoms reported Psychiatric/Neurological: See HPI, Headache Hematologic/Lymphatic: No Symptoms Reported Immunological/Allergic: no symptoms reported Past Jbnmnhb-Lvvshk-Arzjey Hx Patient Social History Tobacco Use?: No Substance use?: No Alcohol Use?: No Immunizations Up To Date Tetanus Booster (TDap): Less than 5yrs PED Vaccines UTD: No First/Initial COVID19 Vaccinat: 2019 Second COVID19 Vaccination Nacho: 2019 Third COVID19 Vaccination Date: 2020 Past Medical History Surgery/Hospitalization HX: GASTRIC SLEEVE, CHOLECYSTECTOMY, APPENDECTOMY, CSECTION, COLONOSCOPY HASHIMOTOS, CELIAC Surgeries: Yes Abdominal, Appendectomy, Bladder Surgery, Section, Gallbladder Respiratory: No Cardiac: No Neurological: Yes Headaches /Migraines : Yes Reproductive Disorders: No Genitourinary: Yes (Interstitial cystitis) Gastrointestinal: Yes (Post gastric sleeve, celiac disease; S/P EVANS AND APPY) Gall Bladder Disease Musculoskeletal: No Endocrine: Yes (Jake's thyroiditis; MORBID OBESITY) HEENT: No Cancer: No Psychosocial: Yes Anxiety Integumentary: No Blood Disorders: Yes (Iron deficiency anemia) Family Medical History No Pertinent Family Hx Bariatric Surgery Physical Exam Vital Signs Vital Signs - First Documented 08/12/22 08/12/22 01:03 02:24 Temp 36.8 Pulse 105 Resp 20 B/P (MAP) 145/82 (103) Pulse Ox 100 O2 Delivery Room Air Capillary Refill : Height, Weight, BMI Height: 5'4.00" Weight: 246lbs. oz. 111.005155hu; 45.00 BMI Method:Stated General Appearance: No Apparent Distress, WD/WN, Obese, Other (SMILING, DOES NOT APPEAR TO BE IN ANY DISCOMFORT OR DISTRESS, WALKS UPRIGHT AND MOVES WITHOUT DIFFICULTY) HEENT: PERRL/EOMI, Normal ENT Inspection, Moist Mucous Membranes Neck: Full Range of Motion, Normal Inspection, Non Tender, Supple Respiratory: Normal Breath Sounds, No Accessory Muscle Use, No Respiratory Distress Cardiovascular: Regular Rate, Rhythm, No Edema, No JVD, No Murmur, Normal Peripheral Pulses Gastrointestinal: Soft, Tenderness (VERY MILD SUPRAPUBIC TENDERNESS. ), Other (UNABLE TO PALPATE UTERINE FUNDUS DUE TO BODY HABITUS, BUT FHT'S 155.) Back: No CVA Tenderness Extremity: Normal Capillary Refill, Normal Inspection, Normal Range of Motion, Non Tender, No Calf Tenderness, No Pedal Edema Neurologic/Psychiatric: Alert, Oriented x3, No Motor/Sensory Deficits, Normal Mood/Affect, fountain helper II-XII Norm as Tested Skin: Normal Color, Warm/Dry Progress/Results/Core Measures Suspected Sepsis SIRS Temperature: Pulse: Respiratory Rate: Laboratory Tests 08/12/22 01:10: White Blood Count 9.5 Blood Pressure / Mean: Laboratory Tests 08/12/22 01:10: Creatinine 0.58L, Platelet Count 234, Total Bilirubin 0.2 Results/Orders Lab Results Laboratory Tests Test 08/12/22 01:10 Range/Units White Blood Count 9.5 4.3-11.0 10^3/uL Red Blood Count 3.97 3.80-5.11 10^6/uL Hemoglobin 9.1 L 11.5-16.0 g/dL Hematocrit 30 L 35-52 % Mean Corpuscular Volume 74 L 80-99 fL Mean Corpuscular Hemoglobin 23 L 25-34 pg Mean Corpuscular Hemoglobin Concent 31 L 32-36 g/dL Red Cell Distribution Width 15.9 H 10.0-14.5 % Platelet Count 234 130-400 10^3/uL Mean Platelet Volume 11.6 9.0-12.2 fL Immature Granulocyte % (Auto) 0 % Neutrophils (%) (Auto) 68 42-75 % Lymphocytes (%) (Auto) 26 12-44 % Monocytes (%) (Auto) 6 0-12 % Eosinophils (%) (Auto) 0 0-10 % Basophils (%) (Auto) 0 0-10 % Neutrophils # (Auto) 6.4 1.8-7.8 10^3/uL Lymphocytes # (Auto) 2.4 1.0-4.0 10^3/uL Monocytes # (Auto) 0.6 0.0-1.0 10^3/uL Eosinophils # (Auto) 0.0 0.0-0.3 10^3/uL Basophils # (Auto) 0.0 0.0-0.1 10^3/uL Immature Granulocyte # (Auto) 0.0 0.0-0.1 10^3/uL Urine Color YELLOW Urine Clarity CLEAR Urine pH 6.0 5-9 Urine Specific [place] 1.025 H 1.016-1.022 Urine Protein NEGATIVE NEGATIVE Urine Glucose (UA) NEGATIVE NEGATIVE Urine Ketones NEGATIVE NEGATIVE Urine Nitrite NEGATIVE NEGATIVE Urine Bilirubin NEGATIVE NEGATIVE Urine Urobilinogen 1.0 < = 1.0 MG/DL Urine Leukocyte Esterase 2+ H NEGATIVE Urine RBC (Auto) NEGATIVE NEGATIVE Urine RBC NONE /HPF Urine WBC 2-5 /HPF Urine Squamous Epithelial Cells 2-5 /HPF Urine Crystals NONE /LPF Urine Bacteria FEW H /HPF Urine Casts NONE /LPF Urine Mucus SMALL H /LPF Urine Culture Indicated YES Sodium Level 138 135-145 MMOL/L Potassium Level 3.7 3.6-5.0 MMOL/L Chloride Level 108 H 98-107 MMOL/L Carbon Dioxide Level 19 L 21-32 MMOL/L Anion Gap 11 5-14 MMOL/L Blood Urea Nitrogen 7 7-18 MG/DL Creatinine 0.58 L 0.60-1.30 MG/DL Estimat Glomerular Filtration Rate 130 BUN/Creatinine Ratio 12 Glucose Level 83 70-105 MG/DL Calcium Level 9.2 8.5-10.1 MG/DL Corrected Calcium 9.9 8.5-10.1 MG/DL Magnesium Level 1.7 1.6-2.4 MG/DL Total Bilirubin 0.2 0.1-1.0 MG/DL Aspartate Amino Transf (AST/SGOT) 15 5-34 U/L Alanine Aminotransferase (ALT/SGPT) 9 0-55 U/L Alkaline Phosphatase 50 40-136 U/L Total Protein 6.4 6.4-8.2 GM/DL Albumin 3.1 L 3.2-4.5 GM/DL Influenza Type A (RT-PCR) Not Detected Not Detecte Influenza Type B (RT-PCR) Not Detected Not Detecte SARS-CoV-2 RNA (RT-PCR) Not Detected Not Detecte My Orders Orders - GRECIA MUNOZ DO Covid 19 Inhouse Test (08/12/22 01:04) Influenza A And B By Pcr (08/12/22 01:04) Isolation Central Supply Req (08/12/22 01:04) Ed Iv/Invasive Line Start (08/12/22 01:07) Monitor-Rhythm Ecg Trace Only (08/12/22 01:07) Cbc With Automated Diff (08/12/22 01:07) Comprehensive Metabolic Panel (08/12/22 01:07) Magnesium (08/12/22 01:07) Ua Culture If Indicated (08/12/22 01:07) Acetaminophen Tablet (Tylenol Tablet) (08/12/22 01:30) Heart Tones (08/12/22:23) Urine Culture (08/12/22 01:10) Medications Given in ED Current Medications Medications Dose Ordered Sig/Catrachita Route Start Time Stop Time Status Last Admin Dose Admin Acetaminophen 1,000 mg ONCE ONCE PO 08/12/22 01:30 08/12/22 01:31 DC 08/12/22 01:55 1,000 MG Vital Signs/I&O 08/12/22 08/12/22 01:03 02:24 Temp 36.8 Pulse 105 86 Resp 20 18 B/P (MAP) 145/82 (103) 126/77 Pulse Ox 100 99 O2 Delivery Room Air Capillary Refill : Progress Note : Progress Note PLACED IN ISOLATION ROOM PPE WORN COVID AND FLU TESTING DONE. GIVEN TYLENOL FOR HEADACHE FHR 155 UNEVENTFUL ER STAY BP 124/55 AT DISMISSAL SYMPTOMS IMPROVED AT DISMISSAL DISCUSSED TEST RESULTS, ANTICIPATED COURSE, SYMPTOMATIC TREATMENT, NEED FOR FOLLOW UP AND RETURN PRECAUTIONS REVIEWED PRIOR RECORDS--ALL ER VISITS--25 ER VISITS SINCE 2019. Departure Impression Primary Impression: Headache Additional Impressions: 16 weeks gestation of UTI (urinary tract infection) in in second trimester Disposition: 01 HOME, SELF-CARE Condition: Improved Departure-Patient Inst. Decision time for Depature: 02:13 [facility] ([facility]Family) Primary Care Physician Patient Instructions: Headache, Adult ED, Urinary Tract Infections in Add. Discharge Instructions: HOME, REST LOTS OF CLEAR LIQUIDS--NO COFFEE, POP OR TEA TYLENOL NEEDED FOR PAIN KEEP YOUR APPOINTMENT NEXT WEEK WITH YOUR [facility] MANAGER RETURN TO ER IF SYMPTOMS WORSEN Scripts Nitrofurantoin Monohyd/M-Cryst (Macrobid 100 mg Capsule) 100 Mg Capsule 1 TAB PO BID, #20 CAP Prov: GRECIA MUNOZ DO 08/12/22 GRECIA MUNOZ DO Aug 12, 2022 01:15
[2022-08-12 01:22] LABS: BASOPHILS % (AUTO) 0 % (0-10); EOSINOPHILS % (AUTO) 0 % (0-10); HEMATOCRIT 30 % (35-52); HEMOGLOBIN 9.1 g/dL (11.5-16.0); LYMPHOCYTES # (AUTO) 2.4 10^3/uL (1.0-4.0); LYMPHOCYTES % (AUTO) 26 % (12-44); MEAN CORPUSCULAR HEMOGLOBIN 23 pg (25-34); MEAN CORPUSCULAR HGB CONC 31 g/dL (32-36); MEAN CORPUSCULAR VOLUME 74 fL (80-99); MEAN PLATELET VOLUME 11.6 fL (9.0-12.2); MONOCYTES # (AUTO) 0.6 10^3/uL (0.0-1.0); MONOCYTES % (AUTO) 6 % (0-12); NEUTROPHILS # (AUTO) 6.4 10^3/uL (1.8-7.8); NEUTROPHILS % (AUTO) 68 % (42-75); PLATELET COUNT 234 10^3/uL (130-400); WHITE BLOOD COUNT 9.5 10^3/uL (4.3-11.0)
[2022-08-12 01:26] LABS: BILIRUBIN,URINE NEGATIVE (NEGATIVE); CLARITY,URINE CLEAR; COLOR,URINE YELLOW; GLUCOSE, URINE (UA) NEGATIVE (NEGATIVE); KETONES,URINE NEGATIVE (NEGATIVE); LEUKOCYTE ESTERASE ,URINE 2+ (NEGATIVE); NITRITE,URINE NEGATIVE (NEGATIVE); PROTEIN,URINE NEGATIVE (NEGATIVE)
[2022-08-12] MEDS ORDERED: ACETAMINOPHEN 500 MG TAB (TYLENOL) PO ONE (01:30)
[2022-08-12 01:39] LABS: ALBUMIN 3.1 GM/DL (3.2-4.5); POTASSIUM 3.7 MMOL/L (3.6-5.0)
[2022-08-12 01:40] LABS: BACTERIA,URINE FEW /HPF
[2022-08-12 01:41] LABS: CALCIUM 9.2 MG/DL (8.5-10.1)
[2022-08-12 01:42] LABS: TOTAL PROTEIN 6.4 GM/DL (6.4-8.2)
[2022-08-12 01:43] LABS: BILIRUBIN,TOTAL 0.2 MG/DL (0.1-1.0)
[2022-08-12 01:45] LABS: CREATININE SERUM 0.58 MG/DL (0.60-1.30)
[2022-08-12 01:48] LABS: MAGNESIUM 1.7 MG/DL (1.6-2.4)
[2022-08-12] MEDS ORDERED: NITR-65 PO (02:15)
[2022-08-12 02:24] VITALS: BP 126/77
== END 2022-08-12 02:24 | disposition home or self-care (01) ==
LOC: EDUNIT# 00:50 → ER 00:53
DX: O99.891 Other specified diseases and conditions complicating pregnancy (principal); R51.9 Headache, unspecified; O23.42 Unspecified infection of urinary tract in pregnancy, second trimester; N39.0 Urinary tract infection, site not specified; O99.212 Obesity complicating pregnancy, second trimester; E66.01 Morbid (severe) obesity due to excess calories; Z88.0 Allergy status to penicillin; Z20.822 Contact with and (suspected) exposure to COVID-19; Z3A.16 16 weeks gestation of pregnancy
CPT/HCPCS: 36415; 80053; 81000; 83735; 85025; 87088; 87636; 93041

== ENCOUNTER 2022-08-21 08:25 | Emergency (ER) | payer MEDICAID ==
[~2022-08-21] VITALS: Ht 162 cm; Wt 120.0 kg
--- NOTE | 2022-08-21 09:06 | ED GU-Female ---
General Chief Complaint: OB < 20 WEEKS Stated Complaint: 18WK BLOOD AND CRAMPING Nursing Triage Note: PT PRESENTS TO ED VIA POV FROM HOME WITH COMPLAINTS OF LOWER ABDOMINAL CRAMPING X 2 HOURS. PT ALSO REPORTS SPOTTING/VAGINAL BLEEDING STARTING APROX 15 MIN CRUSHER WET GROUND MICA. PT REPORTS SHE IS APROX 18 WEEKS PREG. PT REPORTS THIS IS HER 4 AND SHE HAS HAD ONE LIVE . Source: patient Exam Limitations: no limitations History of Present Illness Date Seen by Provider: August 21, 2022 Time Seen by Provider: 08:36 Initial Comments This 26-year-old young lady is a 4 para 1 with 2 miscarriages who presents to the emergency room at 18 weeks gestational age with concern about vaginal bleeding. She developed some abdominal cramping and bright red spotting this morning seen on toilet paper she presents a picture on her phone showing the blood which represents the equivalent of several drops of blood on the toilet paper. She denies any other vaginal discharge or odor. She has some minor vaginal pain this morning. She denies any history of vaginal infections. She has not been sexually active for "awhile" and has not had any new partners during the . She has felt movements in the past including yesterday but has not felt movements this morning. heart tones by Doppler during assessment are in the 140s. Her primary compliance director is Dr. Daley in [place]. She had a pelvic exam performed early in the with no reported abnormalities. Patient is tearful. She reports last ultrasound was at 14 weeks gestational age and was normal with an anterior placenta without placental previa. She has been seen in this ER previously during this for nausea and vomiting. She is known to me from prior visits. Allergies and Home Medications Allergies Coded Allergies: Penicillins (Verified Allergy, Unknown, 12/08/18) pt states she is not sure if she has ever had a reaction, but states her mom is allergic to penicillin so she was told to list it as an allergy codeine (Verified Allergy, Unknown, 09/22/21) promethazine (Verified Allergy, Unknown, 09/22/21) Patient Home Medication List Home Medication List Reviewed: Yes Alprazolam (Xanax) 0.25 Mg Tablet, 0.25 MG PO BID PRN for ANXIETY Prescribed by: TEMITOPE DUENAS on 07/02/19 2200 Azithromycin (Azithromycin) 250 Mg Tablet, 250 MG PO UD Prescribed by: ELIZABETH LÓPEZ on 04/19/22 1553 Cefdinir (Cefdinir) 300 Mg Capsule, 300 MG PO BID Prescribed by: TEMITOPE DUENAS on 05/28/21 1109 Cephalexin (Cephalexin) 500 Mg Capsule, (Reported) Entered as Reported by: IVAN TRACEY on 05/28/21 1035 Cephalexin (Cephalexin) 500 Mg Tablet, 500 MG PO TID Prescribed by: JOSE PERLA on 06/08/22 1002 Clindamycin HCl (Clindamycin HCl) 300 Mg Capsule, 300 MG PO TID Prescribed by: SOHAM CHAPIN on 10/05/21 1809 Dicyclomine HCl (Dicyclomine HCl) 20 Mg Tablet, 20 MG PO Q6H PRN for abdominal cramping Prescribed by: MINH RENO on 06/08/21 1721 Doxylamine Succinate (Unisom) 25 Mg Tablet, 25 MG PO HS PRN for NAUSEA/VOMITING Prescribed by: JOSE PERLA on 06/08/22 1002 Ferrous Sulfate (Iron) 325 Mg (65 Mg Iron) Tablet, 325 MG PO UD Prescribed by: Emily Barnes on 05/17/22 204 Fluconazole (Diflucan) 150 Mg Tablet, 150 MG PO DAILY Prescribed by: TEMITOPE DUENAS on 05/28/21 1109 Hydrocodone/Acetaminophen (Hydrocodone-Acetamin 5-325 mg) 5 Mg-325 Mg Tablet, 1 TAB PO Q4H PRN for PAIN-MODERATE (5-7) Prescribed by: William Morrissey on 10/11/21 1119 Levofloxacin (Levofloxacin) 500 Mg Tablet, 500 MG PO DAILY Prescribed by: ELIZABETH LÓPEZ on 12/16/21 1722 Medroxyprogesterone Acetate (Depo-Provera) 150 Mg/1 Ml Vial, (Reported) Entered as Reported by: IVAN TRACEY on 05/28/21 1035 Naproxen (Naproxen) 500 Mg Tablet, (Reported) Entered as Reported by: BRANDEE ALCANTARA on 03/06/19 0914 Nitrofurantoin Monohyd/M-Cryst (Macrobid 100 mg Capsule) 100 Mg Capsule, 1 TAB PO BID Prescribed by: GRECIA MUNOZ on 08/12/22 0215 Ondansetron (Ondansetron Odt) 8 Mg Tab.rapdis, 8 MG PO Q8H PRN for nausea Prescribed by: MINH RENO on 06/08/21 172 Ondansetron (Ondansetron Odt) 4 Mg Tab.rapdis, 4 MG PO Q8H PRN for NAUSEA/V OMITING Prescribed by: MINH RENO on 09/22/21 232 Prednisone (Prednisone) 20 Mg Tab, 40 MG PO DAILY Prescribed by: ELIZABETH LÓPEZ on 04/19/22 155 Pyridoxine HCl (Vitamin B-6) 25 Mg Tablet, 25 MG PO HS PRN for NAUSEA/VOMITING Prescribed by: JOSE PERLA on 06/08/22 1002 Review of Systems Review of Systems Constitutional: no symptoms reported EENTM: no symptoms reported Respiratory: no symptoms reported Cardiovascular: no symptoms reported Gastrointestinal: no symptoms reported Genitourinary: see HPI : Yes Expected Date of Delivery: Jan 14, 2023 Musculoskeletal: no symptoms reported Skin: no symptoms reported Psychiatric/Neurological: See HPI Endocrine: No Symptoms Reported Hematologic/Lymphatic: No Symptoms Reported Past Tlocptf-Rqswwa-Dumtue Hx Patient Social History Tobacco Use?: No Substance use?: No Alcohol Use?: No Pt feels they are or have been: No Immunizations Up To Date Tetanus Booster (TDap): Less than 5yrs PED Vaccines UTD: No First/Initial COVID19 Vaccinat: 2020 Second COVID19 Vaccination Nacho: 2019 Third COVID19 Vaccination Date: 2020 Past Medical History Surgery/Hospitalization HX: GASTRIC SLEEVE, CHOLECYSTECTOMY, APPENDECTOMY, CSECTION, COLONOSCOPY HASHIMOTOS, CELIAC Surgeries: Yes Abdominal, Appendectomy, Bladder Surgery, Section, Gallbladder Respiratory: No Cardiac: No Neurological: Yes Headaches /Migraines Reproductive Disorders: No Genitourinary: Yes (Interstitial cystitis) Gastrointestinal: Yes (Post gastric sleeve, celiac disease; S/P EVANS AND APPY) Gall Bladder Disease Musculoskeletal: No Endocrine: Yes (Jake's thyroiditis; MORBID OBESITY) HEENT: No Cancer: No Psychosocial: Yes Anxiety, Depression Integumentary: No Blood Disorders: Yes (Iron deficiency anemia) Family Medical History No Pertinent Family Hx Bariatric Surgery Physical Exam Vital Signs Vital Signs - First Documented 08/21/22 08:35 Temp 36.7 Pulse 107 Resp 16 B/P (MAP) 136/96 (109) Pulse Ox 100 Capillary Refill : Less Than 3 Seconds Height, Weight, BMI Height: 5'4.00" Weight: 246lbs. oz. 111.827035ys; 45.00 BMI Method:Stated General Appearance: WD/WN, no apparent distress HEENT: normal ENT inspection Neck: normal inspection Cardiovascular: regular rate, rhythm, no edema, no murmur Respiratory: lungs clear, normal breath sounds, no respiratory distress Gastrointestinal: soft; No distended; tenderness (Mild in the suprapubic region) Neurologic/Psychiatric: alert, oriented x 3, other (Tearful) Progress/Results/Core Measures Suspected Sepsis SIRS Temperature: Pulse: 107 Respiratory Rate: 16 Blood Pressure 136 /96 Mean: 109 Results/Orders Lab Results Laboratory Tests Test 08/21/22 09:05 Range/Units Urine Color YELLOW Urine Clarity CLEAR Urine pH 7.0 5-9 Urine Specific Oxly <=1.005 1.016-1.022 Urine Protein NEGATIVE NEGATIVE Urine Glucose (UA) NEGATIVE NEGATIVE Urine Ketones NEGATIVE NEGATIVE Urine Nitrite NEGATIVE NEGATIVE Urine Bilirubin NEGATIVE NEGATIVE Urine Urobilinogen 0.2 < = 1.0 MG/DL Urine Leukocyte Esterase 3+ H NEGATIVE Urine RBC (Auto) 3+ H NEGATIVE Urine RBC 0-2 /HPF Urine WBC 2-5 /HPF Urine Squamous Epithelial Cells 2-5 /HPF Urine Crystals NONE /LPF Urine Bacteria FEW H /HPF Urine Casts NONE /LPF Urine Mucus NEGATIVE /LPF Urine Culture Indicated YES My Orders Orders - JOSE CHRISTIAN MD Ua Culture If Indicated (08/21/22 08:41) Urine Culture (08/21/22 09:05) Vital Signs/I&O 08/21/22 08:35 Temp 36.7 Pulse 107 Resp 16 B/P (MAP) 136/96 (109) Pulse Ox 100 Capillary Refill : Less Than 3 Seconds Blood Pressure Mean: 109 Progress Note #1: Time: 09:05 Progress Note Patient was interviewed and examined. Heart tones were 140s by Doppler. Urine specimen is pending. Progress Note #2: Time: 09:58 Progress Note Patient reported similar spotting when wiping before giving the urine specimen. UA demonstrated 2-5 WBC, 2-5 squamous cells, and few bacteria. It is unclear if this represents urinary tract infection or contaminant. Patient denies dysuria or increased frequency. She was offered antibiotic therapy while awaiting urine culture. She prefers to wait until urine culture results. I also offered a pelvic exam. I did explain she seems to be at low risk for STIs given her history of monogamous relationship and a negative pelvic exam early in . I explained risks and benefits. Benefits included earlier detection of a possible vaginal infection such as bacterial vaginosis or STI. Risks included potential mechanical irritation of the vagina and cervix that could escalate bleeding. Patient elected to forego pelvic exam and contact her compliance director on Tuesday. Return precautions were advised. See discharge instructions for further discussion. Departure Impression Primary Impression: Vaginal bleeding during Disposition: HOME, SELF-CARE Condition: Stable Departure-Patient Inst. Decision time for Depature: 09:50 Referrals: [facility] (PCP/Family) Primary Care Physician Patient Instructions: Bleeding In Early Add. Discharge Instructions: Follow-up with Dr. Daley first thing on Tuesday morning with a phone call. Follow-up on urine culture results on Tuesday afternoon or Tuesday. You may contact to the emergency room at the number above or have your compliance director follow-up on culture results. There was subtle suggestion of urinary tract in fection on your urine specimen, but this could also be contamination from your skin. Your heart tones by Doppler were reassuring with a heart rate in the 140s. Observe pelvic rest (nothing in the vagina) until cleared by your doctor. Normal, nonaggressive activities of daily living may be continued. You may take Tylenol (acetaminophen) up to 1000 mg every 6 hours as needed for discomfort or cramping. Return to the emergency room for further evaluation if you are having escalation of significant bleeding, escalating pain, fevers, or other concerning symptoms. Drink plenty of clear liquids to stay well-hydrated. All discharge instructions reviewed with patient and/or family. Voiced understanding. Copy Copies To 1: [facility]/JOSE CLARK MD August 21, 2022 09:06
[2022-08-21 09:26] LABS: BILIRUBIN,URINE NEGATIVE (NEGATIVE); CLARITY,URINE CLEAR; COLOR,URINE YELLOW; GLUCOSE, URINE (UA) NEGATIVE (NEGATIVE); KETONES,URINE NEGATIVE (NEGATIVE); LEUKOCYTE ESTERASE ,URINE 3+ (NEGATIVE); NITRITE,URINE NEGATIVE (NEGATIVE); PROTEIN,URINE NEGATIVE (NEGATIVE)
[2022-08-21 09:38] LABS: BACTERIA,URINE FEW /HPF; RBC,URINE 0-2 /HPF
[2022-08-21 09:59] VITALS: BP 136/96
== END 2022-08-21 09:59 | disposition home or self-care (01) ==
LOC: EDUNIT# 08:25 → ER 08:27
DX: O20.9 Hemorrhage in early pregnancy, unspecified (principal); O99.212 Obesity complicating pregnancy, second trimester; E66.01 Morbid (severe) obesity due to excess calories; Z3A.18 18 weeks gestation of pregnancy; Z90.49 Acquired absence of other specified parts of digestive tract; Z98.84 Bariatric surgery status
CPT/HCPCS: 81000; 87088

== ENCOUNTER 2022-10-10 00:23 | Outpatient (CLI) | payer MEDICAID ==
[~2022-10-10] VITALS: Ht 162 cm; Wt 124.1 kg
[2022-10-10 00:36] VITALS: BP 133/60
[2022-10-10 00:50] LABS: BILIRUBIN,URINE NEGATIVE (NEGATIVE); CLARITY,URINE SL CLOUDY; COLOR,URINE YELLOW; GLUCOSE, URINE (UA) NEGATIVE (NEGATIVE); KETONES,URINE TRACE (NEGATIVE); LEUKOCYTE ESTERASE ,URINE 3+ (NEGATIVE); NITRITE,URINE NEGATIVE (NEGATIVE); PROTEIN,URINE NEGATIVE (NEGATIVE)
[2022-10-10] MEDS ORDERED: OMEP20CA18 PO (00:57)
[2022-10-10] MEDS ORDERED: LEVO100C4 PO (00:57)
[2022-10-10 01:07] LABS: AMORPHOUS SEDIMENT,UR RARE AMOR PHOSPHATE /LPF; BACTERIA,URINE NEGATIVE /HPF; HYALINE CASTS, URINE RARE /LPF; SQUAMOUS EPITHELIAL CELL,UR 0-2 /HPF
[2022-10-10] MEDS ORDERED: ONDANSETRON 4 MG/2 ML (SDV) Z0FRAN IVP ONE ×2 (01:30)
[2022-10-10] MEDS ORDERED: ACETAMINOPHEN 500 MG TAB (TYLENOL) PO ONE (01:30)
[2022-10-10] MEDS ORDERED: LACTATED RINGERS 1,000 ML IV ONE (01:30)
[2022-10-10] MEDS ORDERED: ONDANSETRON 4 MG/2 ML (SDV) Z0FRAN ONE (01:31)
== END 2022-10-10 02:34 ==
LOC: WSo 00:23 → LDRP 00:25 → WSo 02:34
PROVIDERS: ATTEND Family Medicine
DX: O99.891 Other specified diseases and conditions complicating pregnancy (principal); R10.9 Unspecified abdominal pain; J02.9 Acute pharyngitis, unspecified; Z3A.25 25 weeks gestation of pregnancy
CPT/HCPCS: 81000; 87088; 96360; 96375; 99213